=== PATIENT | male | born 1960 | race African-American/Black ===

== ENCOUNTER → 2022-03-11 13:29 | Outpatient (BNVA) | payer MEDICARE, MEDICAID, SELFPAY | PROVIDERS: PCP Internal Medicine; Visit Provider Internal Medicine | DX: M53.3 Sacrococcygeal disorders, not elsewhere classified (principal); Z98.1 Arthrodesis status | CPT/HCPCS: 99202 ==

== ENCOUNTER 2022-03-31 04:59 | Emergency (ER) | payer MEDICARE, MEDICAID, SELFPAY ==
[2022-03-31 05:02] VITALS: BP 148/86; PULSE 82; O2SAT 100
[2022-03-31 05:09] VITALS: BP 132/86; PULSE 76; RESP 16; O2SAT 100
--- NOTE | 2022-03-31 05:10 | ECG_ITS ---
Test Reason : AMS Blood Pressure : / mmHG Vent. Rate : 078 BPM Atrial Rate : 078 BPM P-R Int : 200 ms QRS Dur : 076 ms QT Int : 374 ms P-R-T Axes : 063 046 060 degrees QTc Int : 426 ms Normal sinus rhythm Normal ECG When compared with ECG of 25-MAR-2005 18:31, ST now depressed in Anterior leads T wave amplitude has decreased in Anterior leads Referred By: Nancy Coles Electronically Signed By:ROBERTH JUAREZ MD
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
[2022-03-31] MEDS: ondansetron HCL 4 MG/2 ML VIAL IVPUSH (05:39)
[2022-03-31] MEDS: 0.9 % Sodium Chloride 1,000 ML 999 ML IVCONT (05:39)
[2022-03-31 05:41] LABS: Basophils Percent Auto 0.5 % (0-2); Eosinophils Absolute Auto 0.1 X10*3/uL (0.0-0.4); Eosinophils Percent Auto 0.9 % (0-4); Hematocrit 44.4 % (42.0-52.0); Hemoglobin 15.4 g/dl (14.0-18.0); Imm Gran Abs Auto 0.03 X10*3/uL (0.00-0.03); Imm Gran Pct Auto 0.4 % (0.0-0.4); Lymphocytes Absolute Auto 2.6 X10*3/uL (1.2-4.9); Lymphocytes Percent Auto 34.1 % (20-40); MANUAL DIFF FLAG NO; Mean Corpuscular HGB Conc 34.7 g/dl (31.0-36.0); Mean Corpuscular Volume 86.5 fL (80.0-98.0); Mean Platelet Volume 9.9 fL (9.4-12.4); Monocytes Absolute Auto 0.9 X10*3/uL (0.1-1.2); Monocytes Percent Auto 12.3 % (2-11); Neutrophils Absolute Auto 3.9 x10*3/uL (2.0-8.3); Neutrophils Percent Auto 51.8 % (45-73); Platelet Count 291 X10*3/uL (160-400); Red Blood Count 5.13 X10*6/uL (4.60-5.80); Red Cell Distribution Width 13.9 % (11.0-16.0); White Blood Count 7.5 X10*3/uL (4.8-10.8)
[2022-03-31 05:47] LABS: Prothrombin Time 11.5 SEC (9.9-13.0)
[2022-03-31 05:55] LABS: Ethanol < 10 mg/dL
[2022-03-31 05:57] LABS: COVID-19 Test Negative (Negative)
[2022-03-31 06:05] LABS: Acetaminophen LAB < 1 mcg/mL (<30); Alanine Aminotransferase 22 U/L (0-40); Albumin Level 4.8 g/dL (3.5-5.0); Alkaline Phosphatase 79 U/L (39-117); Anion Gap 16 (12-20); Aspartate Amino Transferase 20 U/L (5-37); Bilirubin Direct < 0.2 mg/dL (0.0-0.5); Bilirubin Total 0.2 mg/dL (0.0-1.0); Blood Urea Nitrogen 7 mg/dL (9-16); Calcium 9.9 mg/dL (8.4-10.2); Carbon Dioxide 25 mmol/L (22-29); Chloride 103 mmol/L (96-108); Creatinine Clr Calc Pharmacy 87.6; Estimated Glomerular Filt Rate > 60; Glucose Random 133 mg/dL (60-115); Potassium 3.4 mmol/L (3.3-5.1); Salicylate < 5.0 mg/dL (15-30); Sodium 141 mmol/L (135-145); Total Protein 7.8 g/dL (6.5-8.0)
[2022-03-31 06:29] LABS: Lipase 30 U/L (8-78)
[2022-03-31 06:30] LABS: Amphetamine Screen Urine Not Detected (Not Detect); Barbiturates, Urine Not Detected (Not Detect); Benzodiazepines Screen Urine Not Detected (Not Detect); Cannabinoid Screen Urine POSITIVE (Not Detect); Cocaine Screen Urine Not Detected (Not Detect); Fentanyl, urine Not Detected (Not Detect); Opiate Screen Urine POSITIVE (Not Detect); Phencyclidine Screen Urine Not Detected (Not Detect)
[2022-03-31] MEDS: Famotidine/PF 20 MG/2 ML VIAL IVPUSH (07:07)
[2022-03-31] MEDS: Acetaminophen 325 MG TABLET 975 MG PO ×2 (08:19→16:55)
[2022-03-31] MEDS: diphenhydrAMINE HCL 25 MG TABLET 50 MG PO (09:57)
--- NOTE | 2022-03-31 11:48 | PC.NURSE ---
smart sheet completed
[2022-03-31 12:58] VITALS: BP 168/81; PULSE 70; RESP 16; TEMP 35.7; O2SAT 99
--- NOTE | 2022-03-31 13:48 | PHA.MEDREC ---
Pharmacy Consult ? Medication Reconciliation Pharmacy has completed the medication reconciliation. Pt able to name some medications, but quickly got irritated. I went through his claim history list and he confirmed doses and times, asked about when he could get his blood pressure medication. Also noted can I get my pain pills or is that out now?
[2022-03-31] MEDS: atenoloL 25 MG TABLET PO (14:48)
[2022-03-31] MEDS: Aspirin Enteric Coated 81 MG TABLET.DR PO (14:48)
[2022-03-31] MEDS: Finasteride 5 MG TABLET PO (14:49)
[2022-03-31] MEDS: amLODIPine Besylate 10 MG TABLET PO (15:00)
[2022-03-31] MEDS: oxyCODONE HCl Immed Release 5 MG TABLET 10 MG PO (15:47)
[2022-03-31] MEDS: lisinopriL 20 MG TABLET PO (17:55)
[2022-03-31 20:27] VITALS: BP 157/73; PULSE 85; RESP 20; TEMP 36.7; O2SAT 98
[2022-03-31] MEDS: QUEtiapine Fumarate 200 MG TABLET PO (20:38)
[2022-03-31] MEDS: Gabapentin 600 MG TABLET 1800 MG PO (20:38)
[2022-03-31] MEDS: Mirtazapine 30 MG TABLET 60 MG PO (20:38)
[2022-03-31] MEDS: Famotidine 20 MG TABLET 40 MG PO (20:38)
[2022-03-31] MEDS: Pravastatin Sodium 40 MG TABLET PO (20:38)
--- NOTE | 2022-03-31 21:31 | PC.NURSE ---
Patient compliant with HS medication, ambulates with elbow crutches, charge nurse made aware, visited and ended well, behavior non concerning, called [facility] to confirm disposition and per N patient is voluntary inpatient bed search, VSS, no distress reported/observed at this time, will continue to monitor.
[2022-04-01 05:45] VITALS: BP 135/81; PULSE 104; TEMP 36.1; O2SAT 98
--- NOTE | 2022-04-01 05:53 | PC.NURSE ---
Patient slept through the night, no distress observed/reported, medication compliant, patient ambulates with crutches, disposition per [facility] is voluntary inpatient bed search, behavior appropriate and non concerning at this time, VSS, will continue to monitor.
[2022-04-01 06:41] VITALS: PULSE 93
[2022-04-01] MEDS: Aspirin Enteric Coated 81 MG TABLET.DR PO (07:24)
[2022-04-01] MEDS: oxyCODONE HCl Immed Release 5 MG TABLET 10 MG PO ×2 (07:24→12:40)
--- NOTE | 2022-04-01 07:26 | PC.NURSE ---
Pt out in common area. Speaking with on phone. med with prn oxycodone for 710 back pain
[2022-04-01 07:58] VITALS: BP 161/111; PULSE 94; RESP 13; TEMP 36.2; O2SAT 98
[2022-04-01] MEDS: lisinopriL 20 MG TABLET PO (09:13)
[2022-04-01] MEDS: Finasteride 5 MG TABLET PO (09:13)
[2022-04-01] MEDS: amLODIPine Besylate 10 MG TABLET PO (09:13)
[2022-04-01] MEDS: atenoloL 25 MG TABLET PO ×2 (09:13→11:49)
[2022-04-01] MEDS: Tamsulosin HCL 0.4 MG CAPSULE PO (09:13)
[2022-04-01] MEDS: oxyCODONE HCl ER 10 MG TAB.ER.12H PO (11:51)
[2022-04-01 12:26] VITALS: BP 138/84; PULSE 63; O2SAT 99
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
== END 2022-04-01 14:42 | disposition home or self-care (01) ==
PROVIDERS: Emergency Medicine; Emergency Provider Emergency Medicine Emergency Medical Services
DX: T40.2X2A Poisoning by other opioids, intentional self-harm, initial encounter (principal); Y92.9 Unspecified place or not applicable; F32.A Depression, unspecified; I10 Essential (primary) hypertension; G89.4 Chronic pain syndrome; J45.909 Unspecified asthma, uncomplicated; Z20.822 Contact with and (suspected) exposure to COVID-19
CPT/HCPCS: 36415; 80048; 80076; 80143; 80179; 80307; 82077; 83690; 85025; 85610; 87635; 93005; 96361; 96374; 96375; 99285; J2405; Q0163

== ENCOUNTER → 2022-11-22 11:16 | Outpatient (BNVA) | payer MEDICARE, MEDICAID, SELFPAY | PROVIDERS: Visit Provider Internal Medicine | DX: M53.3 Sacrococcygeal disorders, not elsewhere classified (principal); M85.80 Other specified disorders of bone density and structure, unspecified site; G58.8 Other specified mononeuropathies; F11.20 Opioid dependence, uncomplicated | CPT/HCPCS: 99212 ==

== ENCOUNTER 2023-03-24 16:44 | Observation (INO) | payer MEDICARE, MEDICAID, SELFPAY ==
--- NOTE | ~2023-03-24 | NM_ITS ---
Myocardial perfusion study Indication: Chest discomfort evaluate for myocardial ischemia Technique: The patient was brought in for a Lexiscan perfusion study on 03/25/2023. Patient performed low-level exercise and was injected 0.4 mg of Lexiscan intravenously. Within a minute of injection, 25 mCi of sestamibi was given intravenously. Images were obtained using the SPECT gamma camera interlaced with the gating device. Images were obtained in supine position. Resting perfusion study was performed on 03/26/2023. Patient was administered 25 mCi of sestamibi intravenously at rest. Images were then obtained in supine position. Images obtained with and without CT attenuation. Total DLP 66 mGy-cm Images were processed with the software and compared side to side in short axis, horizontal long axis and vertical long axis views. Findings: Both stress as well as rest perfusion study was suboptimal due to intense subdiaphragmatic uptake interfering with myocardial uptake The stress perfusion study showed non attenuated images shows minimal thinning of the mid and basal inferior as well as basal inferoseptal wall of the LV myocardium. Remainder of the LV myocardium is normally perfused. Attenuated corrected images are suboptimal due to intense subdiaphragmatic uptake. The gated study shows normal LV systolic function with calculated LVEF of 68%. LV cavity is normal in size. The gated study shows normal systolic wall thickening and contraction of segments. Resting study shows non attenuated images show no changes in perfusion pattern compared to stress perfusion study. Gating at rest reveals normal systolic wall motion with ejection fraction at 73%. The findings are consistent with likely normal myocardial. NM/NM marti perf SPECT rest & str Impression: 1. Myocardial perfusion imaging study shows likely normal myocardial perfusion 2. Gated LVEF is 68% 3. Transient ischemic dilatation not present EKG is nondiagnostic for ischemia
--- NOTE | ~2023-03-24 | XR_ITS ---
EXAMINATION: XR CHEST, 2 VIEWS CLINICAL INFORMATION: Chest pain. COMPARISON: None. TECHNIQUE: PA and lateral views of the chest were obtained. FINDINGS: Cardiac leads overlie the chest. Lungs are clear. No consolidation, pneumothorax, or pleural effusion. Cardiac and mediastinal contours are normal. Pulmonary vasculature is unremarkable. Trachea is midline. Osseous structures are unremarkable. XR/XR chest 2V IMPRESSION: Normal chest radiographs.
--- NOTE | 2023-03-24 17:01 | ED.CHESTPAIN ---
HPI - Chest Pain General Chief Complaint: General Medical Stated Complaint: LUQ/CHEST PAIN PER EMS Time Seen by Provider: 03/24/23 16:44 Source: patient Mode of arrival: EMS Limitations: no limitations History of Present Illness HPI narrative: Patient is a 62-year-old male presents emergency department via EMS for evaluation of chest pain. Patient reports that he has been experiencing chest pain intermittently for the past month particularly upon exertion and intermittent dizziness. Patient reports that yesterday he was experiencing chest pain, lightheadedness while walking to his car and he ultimately syncopized. Reportedly his called EMS and he was transported to [facility] for evaluation at approximately 1800 yesterday. By his report he states his potassium was low, he received 4 bags replacement, but ultimately left AMA around 0700 today as he was not receiving his chronic pain medications. He denies ever having had a CT of his head. Unclear whether head strike occurred, he is not on any anticoagulants, he is denying any headache, vision changes, neck pain, confusion. Since being home this morning he reports no changes in his symptoms, but wanted to present this evening for further evaluation. Chest pain is substernal, sometimes radiates diffusely throughout the abdomen, pain is worse with exertion and deep inspiration. Described as dull and aching. Alleviates with rest. Some associated nausea at times without vomiting. Pain is currently 6/10. Denies shortness of breath, cough, cold symptoms, neck pain, edema, lower extremity pain/ redness, history of DVT/PE. Related Data Home Medications Medication Instructions Recorded Confirmed amlodipine 10 mg-benazepril 20 mg 1 cap PO DAILY 03/11/22 03/24/23 capsule atenolol 25 mg tablet 25 mg PO DAILY@0900,1300 03/11/22 03/24/23 clonazepam 0.5 mg tablet 0.5 mg PO BID PRN Anxiety 03/11/22 03/24/23 famotidine 40 mg tablet 40 mg PO BEDTIME 03/11/22 03/24/23 finasteride 5 mg tablet 5 mg PO DAILY 03/11/22 03/24/23 fluticasone propionate 50 1 spray intranasal DAILY PRN 03/11/22 03/24/23 mcg/actuation nasal allergies spray,suspension gabapentin 600 mg tablet 900 mg PO BEDTIME 03/11/22 03/24/23 mirtazapine 30 mg tablet 30 mg PO BEDTIME 03/11/22 03/24/23 oxycodone 10 mg tablet 10 mg PO Q6H PRN Pain 03/11/22 03/24/23 oxycodone myristate 9 mg capsule 9 mg PO BEDTIME 03/11/22 03/24/23 sprinkle extended release 12 hr(DON'T CRUSH) (Xtampza ER) pravastatin 40 mg tablet 40 mg PO BEDTIME 03/11/22 03/24/23 quetiapine 200 mg tablet 200 mg PO BEDTIME 03/11/22 03/24/23 tamsulosin 0.4 mg capsule 0.4 mg PO DAILY 03/11/22 03/24/23 aspirin 81 mg tablet,delayed 81 mg PO DAILY 03/31/22 03/24/23 release sennosides 8.6 mg tablet (senna) 8.6 mg PO DAILY PRN Constipation 03/31/22 03/24/23 fluticasone furoate 100 1 inh inhalation DAILY 03/24/23 03/24/23 mcg-vilanterol 25 mcg/dose inhalation powder (Breo Ellipta) lamotrigine 250 mg tablet,extended 250 mg PO BEDTIME 03/24/23 03/24/23 release 24 hr (Lamictal XR) multivitamin 1 tab PO DAILY 03/24/23 03/24/23 Allergies Allergy/AdvReac Type Severity Reaction Status Date / Time bupropion [From Wellbutrin] Allergy Severe Anaphylaxis Verified 11/22/22 11:23 Review of Systems Review of Systems: Yes all other systems are reviewed and are negative PMFSH Past Medical History Attestation statement: The following information was validated with the patient. Source: old records reviewed Medical History Anxiety Asthma Chronic pain syndrome Gastroesophageal reflux disease Hyperlipidemia Hypertension Osteoporosis Social History Social History Alcohol intake: never Patient Tobacco Use Status: Former Tobacco user Smoked in Last 30 Days: Yes Use of substances other than those prescribed or required for medical reasons: No Substance Use Type: Marijuana Advance Directives: No Advance Directives Information Provided: Yes service: No Physical Exam Vital Signs: Vital Signs: Last Vital Signs Temp 97.5 F 03/24/23 21:02 Pulse 71 03/24/23 21:02 Resp 14 03/24/23 21:02 BP 127/79 03/24/23 21:02 Pulse Ox 97 03/24/23 21:02 O2 Del Method Room Air 03/24/23 21:02 BMI result Body Mass Index 20.9 Const: Other: Appearance: Alert.?Oriented to person, place and time. No acute distress.?Normal affect. Head: Normocephalic, atraumatic Eyes: Pupils equal, round and reactive to light.? EOMI. No nystagmus. ENT: Pharynx normal.?? Neck: Normal inspection.? Neck supple.??No midline cervical spine tenderness, step-offs, deformities. CVS: Heart sounds normal. Normal heart rate and rhythm.? Pulses normal.?? Respiratory: No respiratory distress.? Lung sounds clear to auscultation bilaterally. No chest wall tenderness upon palpation Abdomen: Soft and non-tender. Normoactive bowel sounds. No pulsatile mass.?? Skin: Skin warm and dry.? Normal skin color.? Normal skin turgor.?? Extremities: No lower extremity edema.? No calf ttp? Neuro: Moves all extremities spontaneously. Sensation intact bilaterally. CN II-XII intact. No focal neuro deficits. Ambulates with steady gait, and use of bilateral forearm crutches Course Reevaluation(s) Reevaluation #1: CBC is overall unremarkable COVID-19 testing is negative. BMP within normal limits, potassium 4.0. Lipase within normal limits. Troponin 4.8. EKG without evidence of acute ischemia/ STEMI, chest x-ray unremarkable. He is afebrile, hemodynamically stable. No signs of acute abdomen. Findings do not suggest ACS, pancreatitis, or cholecystitis. Hypokalemia has resolve. Consulted with Cardiology; who recommends admission to Medicine Service. Spoke with hospitalist; Dr. Mackenzie, who plans to admit patient. I updated patient and his on current findings and plan of care they are both agreeable. Time: 19:46 Medications Administered Generic Name Dose Route Start Last Admin Trade Name Freq PRN Reason Stop Dose Admin Enoxaparin Sodium 40 mg 03/24/23 20:15 03/24/23 21:16 Enoxaparin Sodium 40 Mg/0.4 Ml Syringe SUBCUT 40 mg Q24H WILD Administration Discontinued Medications Generic Name Dose Route Start Last Admin Trade Name Maikolq PRN Reason Stop Dose Admin Nitroglycerin 0.5 inch 03/24/23 17:56 03/24/23 18:29 Nitroglycerin 2 % Oint 1 Gm Packet TRANSDERMA 03/24/23 17:57 0.5 inch ONCE ONE Administration Medical Decision Making Medical Decision Making [facility] Narrative: Patient is a 62-year-old male with past medical history of anxiety, asthma, chronic pain syndrome managed with oxycodone 20 mg b.i.d. and Xtamsa ER 9mg daily at HS, GERD, hyperlipidemia, hypertension who presents emergency department for evaluation of chest pain. No evidence of with volume overload upon examination, EKG is without signs of acute ischemia/ STEMI. Lower suspicion for acute PE no tachycardia, no hypoxia, no unilateral leg swelling, however due to age will obtain D-dimer. Low suspicion for pneumothorax, AAA, aortic dissection. ACS being considered given features /history. HEART score 3. Differential Diagnosis Differential Diagnoses: The differential diagnosis associated with the presentation includes (As noted above) Admission/Observation Consideration of admission/observation: Escalation of care including admission/observation considered Patient admitted Consult Healthcare Provider Management of the patient was discussed with: Hospitalist (Dr. Mackenzie) and Fingernail Former (Cardiology; Dr. Geller) please see course Lab Data [facility] Lab Attestation statement: I reviewed the patient's lab results. 03/24/23 17:47 03/24/23 17:47 Labs: Lab Results 03/24/23 03/24/23 03/24/23 Range/Units 17:43 17:47 17:47 WBC 10.0 (4.8-10.8) X10*3/uL RBC 5.14 (4.60-5.80) X10*6/uL Hgb 15.5 (14.0-18.0) g/dl Hct 44.7 (42.0-52.0) % MCV 87.0 (80.0-98.0) fL MCH 30.2 (27.0-33.0) pg MCHC 34.7 (31.0-36.0) g/dl RDW 14.1 (11.0-16.0) % Plt Count 295 (160-400) X10*3/uL MPV 10.5 (9.4-12.4) fL Immature Gran % (Auto) 0.9 H (0.0-0.4) % Neut % (Auto) 56.4 (45-73) % Lymph % (Auto) 30.7 (20-40) % [place] % (Auto) 11.2 H (2-11) % Eos % (Auto) 0.4 (0-4) % Baso % (Auto) 0.4 (0-2) % Lymph # (Auto) 3.1 (1.2-4.9) X10*3/uL [place] # (Auto) 1.1 (0.1-1.2) X10*3/uL Eos # (Auto) 0.0 (0.0-0.4) X10*3/uL Baso # (Auto) 0.0 (0.0-0.2) X10*3/uL Abs Immat Gran (auto) 0.09 H (0.00-0.03) X10*3/uL Absolute Neuts (auto) 5.6 (2.0-8.3) x10*3/uL Absolute Nucleated RBC 0.000 (0.0-0.012) X10*3/uL Nucleated RBC % (auto) 0.0 (0.0-0.2) /100WBC PT (10.0-13.1) SEC INR (0.9-1.1) D-Dimer High Sensitivty NG/ML Sodium 143 (135-145) mmol/L Potassium 4.0 (3.3-5.1) mmol/L Chloride 102 (96-108) mmol/L Carbon Dioxide 28 (22-29) mmol/L Anion Gap 17 (12-20) BUN 9 (9-16) mg/dL Creatinine 1.01 (0.5-1.4) mg/dL Estim Creat Clear Calc 73.9 Estimated GFR > 60 Random Glucose 117 H (60-115) mg/dL Calcium 10.6 H D (8.4-10.2) mg/dL Total Bilirubin 0.6 (0.0-1.0) mg/dL AST 21 (5-37) U/L ALT 18 (0-40) U/L Alkaline Phosphatase 75 (39-117) U/L Troponin I High Sens (<3.5-35.0) ng/L Total Protein 8.0 (6.5-8.0) g/dL Albumin 4.8 (3.5-5.0) g/dL Lipase 21 (8-78) U/L COVID-19 (ABELARDO) Negative (Negative) COVID-19 Clin Com See Note 03/24/23 03/24/23 Range/Units 17:47 17:47 WBC (4.8-10.8) X10*3/uL RBC (4.60-5.80) X10*6/uL Hgb (14.0-18.0) g/dl Hct (42.0-52.0) % MCV (80.0-98.0) fL MCH (27.0-33.0) pg MCHC (31.0-36.0) g/dl RDW (11.0-16.0) % Plt Count (160-400) X10*3/uL MPV (9.4-12.4) fL Immature Gran % (Auto) (0.0-0.4) % Neut % (Auto) (45-73) % Lymph % (Auto) (20-40) % [place] % (Auto) (2-11) % Eos % (Auto) (0-4) % Baso % (Auto) (0-2) % Lymph # (Auto) (1.2-4.9) X10*3/uL [place] # (Auto) (0.1-1.2) X10*3/uL Eos # (Auto) (0.0-0.4) X10*3/uL Baso # (Auto) (0.0-0.2) X10*3/uL Abs Immat Gran (auto) (0.00-0.03) X10*3/uL Absolute Neuts (auto) (2.0-8.3) x10*3/uL Absolute Nucleated RBC (0.0-0.012) X10*3/uL Nucleated RBC % (auto) (0.0-0.2) /100WBC PT 11.4 (10.0-13.1) SEC INR 1.0 (0.9-1.1) D-Dimer High Sensitivty < 150 NG/ML Sodium (135-145) mmol/L Potassium (3.3-5.1) mmol/L Chloride (96-108) mmol/L Carbon Dioxide (22-29) mmol/L Anion Gap (12-20) BUN (9-16) mg/dL Creatinine (0.5-1.4) mg/dL Estim Creat Clear Calc Estimated GFR Random Glucose (60-115) mg/dL Calcium (8.4-10.2) mg/dL Total Bilirubin (0.0-1.0) mg/dL AST (5-37) U/L ALT (0-40) U/L Alkaline Phosphatase (39-117) U/L Troponin I High Sens 4.8 (<3.5-35.0) ng/L Total Protein (6.5-8.0) g/dL Albumin (3.5-5.0) g/dL Lipase (8-78) U/L COVID-19 (ABELARDO) (Negative) COVID-19 Clin Com Independent Interpretation I performed an independent interpretation of an: EKG and Plain X-Ray (I have personally interpreted chest x-ray and agree with radiologist impression) Interpretation: Rate: 65 Rhythm:? Normal sinus rhythm [place]:? Normal Normal P waves.? Normal [place].?? Normal QRS complex.?? ST T wave :??No ST elevation, no ST depression no T-wave inversion qTC: 434 prior studies:? March 2022 The study has been interpreted contemporaneously by me. Radiology Impression Discussion of test interpretation with radiology: I have reviewed the radiologist's reading. Radiologist Impression: XR/XR chest 2V IMPRESSION: Normal chest radiographs.? Independent Historian Clinical information obtained from an independent historian. History obtained from or confirmed by: Spouse (Patient's is at bedside who confirms history) Discharge Plan Discharge Clinical Impression: Chest pain Patient Disposition: Admitted As Inpatient
--- NOTE | 2023-03-24 17:03 | ECG_ITS ---
Test Reason : chest pain Blood Pressure : / mmHG Vent. Rate : 065 BPM Atrial Rate : 065 BPM P-R Int : 186 ms QRS Dur : 086 ms QT Int : 418 ms P-R-T Axes : 068 060 060 degrees QTc Int : 434 ms Normal sinus rhythm Normal ECG When compared with ECG of 31-MAR-2022 05:58, No significant change was found Referred By: Nancy Amezcua Electronically Signed By:CARLOS ALBERTO
[2023-03-24 17:07] VITALS: BP 148/74; BP 154/88; PULSE 68; PULSE 70; RESP 16; TEMP 36.4; O2SAT 98; O2SAT 99; BMI 20.9
[2023-03-24 17:51] LABS: MANUAL DIFF FLAG NO
[2023-03-24 18:01] LABS: Prothrombin Time 11.4 SEC (10.0-13.1)
[2023-03-24 18:10] LABS: COVID-19 Test Negative (Negative); IDNOW Serial# 08D9AD1C
[2023-03-24 18:13] LABS: Alanine Aminotransferase 18 U/L (0-40); Albumin Level 4.8 g/dL (3.5-5.0); Alkaline Phosphatase 75 U/L (39-117); Anion Gap 17 (12-20); Aspartate Amino Transferase 21 U/L (5-37); Bilirubin Total 0.6 mg/dL (0.0-1.0); Blood Urea Nitrogen 9 mg/dL (9-16); Calcium 10.6 mg/dL (8.4-10.2); Carbon Dioxide 28 mmol/L (22-29); Chloride 102 mmol/L (96-108); Creatinine Clr Calc Pharmacy 73.9; Estimated Glomerular Filt Rate > 60; Glucose Random 117 mg/dL (60-115); Lipase 21 U/L (8-78); Sodium 143 mmol/L (135-145)
[2023-03-24 18:20] LABS: Troponin-I High Sensitivity 4.8 ng/L (<3.5-35.0)
[2023-03-24 18:27] VITALS: BP 146/83; PULSE 67; RESP 17; O2SAT 98
[2023-03-24 18:28] LABS: Basophils Percent Auto 0.4 % (0-2); Eosinophils Percent Auto 0.4 % (0-4); Hematocrit 44.7 % (42.0-52.0); Hemoglobin 15.5 g/dl (14.0-18.0); Imm Gran Abs Auto 0.09 X10*3/uL (0.00-0.03); Imm Gran Pct Auto 0.9 % (0.0-0.4); Lymphocytes Absolute Auto 3.1 X10*3/uL (1.2-4.9); Lymphocytes Percent Auto 30.7 % (20-40); Mean Corpuscular HGB Conc 34.7 g/dl (31.0-36.0); Mean Corpuscular Hemoglobin 30.2 pg (27.0-33.0); Mean Platelet Volume 10.5 fL (9.4-12.4); Monocytes Absolute Auto 1.1 X10*3/uL (0.1-1.2); Monocytes Percent Auto 11.2 % (2-11); Neutrophils Absolute Auto 5.6 x10*3/uL (2.0-8.3); Neutrophils Percent Auto 56.4 % (45-73); Platelet Count 295 X10*3/uL (160-400); Red Blood Count 5.14 X10*6/uL (4.60-5.80); Red Cell Distribution Width 14.1 % (11.0-16.0)
[2023-03-24] MEDS: Nitroglycerin 2 % Oint 1 GM Packet 0.5 INCH TRANSDERMA (18:29)
[2023-03-24 18:35] LABS: D Dimer High Sensitivity < 150 NG/ML
--- NOTE | 2023-03-24 20:17 | PM.IMHP ---
History of Present Illness Date of Service: 03/24/23 Chief Complaint: Chest pain This is a 62-year-old male with pertinent history of mood disorder, BPH, mixed hyperlipidemia, essential hypertension, asthma who presents to the emergency department for evaluation of chest discomfort. Patient states he has been having chest discomfort, midsternal which radiates down that started 2 weeks prior to presentation. It is worse with activity and relieved with rest. No similar symptoms in the past. No history of CAD. No family history of early CAD. Patient states the chest discomfort with activities also see associated with mild dyspnea. Patient was getting evaluated at [facility] but left AMA. No fever, chills, cough, palpitations, abdominal pain, changes in urinary or bowel habits. Does have symptoms of gastroesophageal reflux disease but states that it is different from his midsternal chest discomfort. In the emergency department, cardiology was consulted who requested admission Review of Systems Constitutional: Constitutional: Reports no additional constitutional complaints Cardiovascular: Cardiovascular: Reports chest pain with activity Respiratory: Respiratory: Reports no additional respiratory complaints Gastrointestinal: Gastrointestinal: Reports no additional gastrointestinal complaints Genitourinary: Genitourinary: Reports no additional male genitourinary complaints Musculoskeletal: Musculoskeletal: Reports no additional musculoskeletal complaints [facility] Medical History Anxiety Asthma Chronic pain syndrome Gastroesophageal reflux disease Hyperlipidemia Hypertension Osteoporosis Pertinent family history: Does not know of significant family history in first-degree relatives Social History Alcohol intake: never Patient Tobacco Use Status: Former Tobacco user Smoked in Last 30 Days: Yes Use of substances other than those prescribed or required for medical reasons: No Substance Use Type: Marijuana Advance Directives: No Advance Directives Information Provided: Yes Meds Allergies Allergy/AdvReac Type Severity Reaction Status Date / Time bupropion [From Wellbutrin] Allergy Severe Anaphylaxis Verified 11/22/22 11:23 Active Medications: Current Medications Pharmacy Consult (Consult Rx Perform Med Rec) 1 each MISCELLANE ONCE PRN PRN Reason: Consult order Home Medications Medication Instructions Recorded Confirmed Last Taken Type amlodipine 10 mg-benazepril 20 mg 1 cap PO DAILY 03/11/22 11/22/22 03/30/22 History capsule atenolol 25 mg tablet 25 mg PO DAILY@0900,1300 06/06/22 02/17/23 Unknown History clonazepam 0.5 mg tablet 0.5 mg PO BID PRN Anxiety 03/11/22 03/24/23 Unknown History famotidine 40 mg tablet 40 mg PO BEDTIME 03/11/22 03/24/23 03/29/22 History finasteride 5 mg tablet 5 mg PO DAILY 03/11/22 11/22/22 Unknown History fluticasone propionate 50 2 spray intranasal DAILY 03/11/22 11/22/22 Unknown History mcg/actuation nasal spray,suspension gabapentin 600 mg tablet 1,800 mg PO BEDTIME 03/11/22 11/22/22 03/29/22 History mirtazapine 30 mg tablet 60 mg PO BEDTIME 03/11/22 11/22/22 03/29/22 History oxycodone 10 mg tablet 10 mg PO QID PRN Pain 03/11/22 11/22/22 03/30/22 History oxycodone myristate 9 mg capsule 9 mg PO DAILY 03/11/22 11/22/22 03/30/22 History sprinkle extended release 12 hr(DON'T CRUSH) (Xtampza ER) pravastatin 40 mg tablet 40 mg PO BEDTIME 03/11/22 11/22/22 03/29/22 History quetiapine 200 mg tablet 200 mg PO BEDTIME 03/11/22 11/22/22 03/29/22 History tamsulosin 0.4 mg capsule 0.4 mg PO DAILY 03/11/22 11/22/22 03/30/22 History aspirin 81 mg tablet,delayed 81 mg PO DAILY 03/31/22 03/24/23 03/24/23 History release sennosides 8.6 mg tablet (senna) 8.6 mg PO DAILY PRN Constipation 03/31/22 11/22/22 Unknown History multivitamin 1 tab PO DAILY 03/24/23 03/24/23 03/24/23 History Physical Exam Vital Signs and Narrative: Vital Signs: Last Vital Signs Temp 97.5 F 03/24/23 17:07 Pulse 67 03/24/23 18:27 Resp 17 03/24/23 18:27 BP 146/83 H 03/24/23 18:27 Pulse Ox 98 03/24/23 18:27 O2 Del Method Room Air 03/24/23 18:27 BMI result Body Mass Index 20.9 Middle-aged male lying in bed in no distress Neck supple, no JVD Regular rate and rhythm, S1-S2 heard Regular breath sounds bilaterally, no wheezing or crackles appreciated Abdomen soft nontender, no guarding, no rigidity Patient is awake, alert and oriented to self, place, time and person ; no focal motor deficit Psych: Normal mood No pedal edema Results Labs 03/24/23 17:47 03/24/23 17:47 Labs: Laboratory Results - last 24 hr 03/24/23 03/24/23 03/24/23 17:43 17:47 17:47 MCV 87.0 MCH 30.2 MCHC 34.7 RDW 14.1 Plt Count 295 MPV 10.5 Immature Gran % (Auto) 0.9 H Neut % (Auto) 56.4 Lymph % (Auto) 30.7 [place] % (Auto) 11.2 H Eos % (Auto) 0.4 Baso % (Auto) 0.4 Lymph # (Auto) 3.1 [place] # (Auto) 1.1 Eos # (Auto) 0.0 Baso # (Auto) 0.0 Abs Immat Gran (auto) 0.09 H Absolute Neuts (auto) 5.6 Absolute Nucleated RBC 0.000 Nucleated RBC % (auto) 0.0 PT INR D-Dimer High Sensitivty Anion Gap 17 Estim Creat Clear Calc 73.9 Estimated GFR > 60 Random Glucose 117 H Calcium 10.6 H D Total Bilirubin 0.6 AST 21 ALT 18 Alkaline Phosphatase 75 Troponin I High Sens Total Protein 8.0 Albumin 4.8 Lipase 21 COVID-19 (ABELARDO) Negative COVID-19 Clin Com See Note 03/24/23 03/24/23 17:47 17:47 MCV MCH MCHC RDW Plt Count MPV Immature Gran % (Auto) Neut % (Auto) Lymph % (Auto) [place] % (Auto) Eos % (Auto) Baso % (Auto) Lymph # (Auto) [place] # (Auto) Eos # (Auto) Baso # (Auto) Abs Immat Gran (auto) Absolute Neuts (auto) Absolute Nucleated RBC Nucleated RBC % (auto) PT 11.4 INR 1.0 D-Dimer High Sensitivty < 150 Anion Gap Estim Creat Clear Calc Estimated GFR Random Glucose Calcium Total Bilirubin AST ALT Alkaline Phosphatase Troponin I High Sens 4.8 Total Protein Albumin Lipase COVID-19 (ABELARDO) COVID-19 Clin Com Imaging Radiologist's Impressions: Impressions Chest X-Ray 03/24/23 17:36 IMPRESSION: Normal chest radiographs. Assessment and Plan (1) Chest pain: Status: Acute Plan This is a 62-year-old male with pertinent history of mood disorder, BPH, mixed hyperlipidemia, essential hypertension, asthma who presents to the emergency department for evaluation of chest discomfort. #. Typical chest discomfort. Will admit patient with laboratory monitor for observation. Trend troponin and obtain echo. Consulting Cardiology, appreciate assistance. #. Essential hypertension. Continue home antihypertensives #. Mood disorder. Continue home mood stabilizers #. Mixed hyperlipidemia. On statin #. BPH. Considering Flomax and finasteride #. Asthma. Not in exacerbation during admission. Continue home inhaler Med rec pending DVT prophylaxis: Lovenox Full code Cardiac diet Time Spent With Patient Time: Total time managing care of this patient today ____ minutes. Quality Stroke Does the patient have a stroke diagnosis?: No VTE Prior VTE?: No VTE Risk Level:: Medical - moderate - high VTE Device Contraindication: Treatment Not Indicated VTE Drug Contraindication: N/A - Med Ordered
--- NOTE | 2023-03-24 20:56 | PHA.MEDREC ---
Med rec complete, spoke to patient and compared with pharmacy history Pharmacy Consult ? Medication Reconciliation Pharmacy has completed the medication reconciliation.
[2023-03-24 21:02] VITALS: BP 127/79; PULSE 71; RESP 14; TEMP 36.4; O2SAT 97
[2023-03-24] MEDS: Enoxaparin Sodium 40 MG/0.4 ML SYRINGE SUBCUT (21:16)
--- NOTE | 2023-03-24 21:38 | MHC.CM.PN ---
IMM 03/24. CM met with admitted patient with bed assignment pending. A&Ox4. Lives with his . Uses 2 canes. 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 [employer] x2. PCP Dr. Castelan [facility]. HCP reviewed, completed and signed. Uploaded into [employer] and [facility] [employer]. Copies given. HCP/ Patricia Beltran ([phone]). [employer] assessment completed. C/O difficulties with paying for utilities. 413 Cares given. D/C plan: Home without services. Family to transport. CM will follow for any discharge needs.
--- NOTE | 2023-03-24 21:44 | PC.NURSE ---
2nd attempt to give report to floor rn. message to call ed for report given and waiting call back.
[2023-03-24 23:10] VITALS: BP 144/68; PULSE 73; RESP 18; TEMP 36.7; O2SAT 98
[2023-03-25] VITALS: RESP 16
--- NOTE | 2023-03-25 | CA_ITS ---
Acquisition Time: 2023-03-25 09:54:29 Total Exercise Time: 00:02:00 Test Indications: CP Medications: SEE H Protocol: LEXISCAN Max HR: 116 BPM 72% of Pred: 159 BPM Max BP: 160/072 mmHG Max Work Load: 1.0 METS Pharmacological stress test with Lexiscan injection while sitting and moving his arm, without anginal symptoms, without arrhythmias, with normotensive response to injection, with nondiagnostic EKG for ischemia. In recovery he was treated with Aminophylline 75mg IVP to reverse Lexiscan. Nuclear images pending. Test reviewed with Dr. Geller. Referred By: Tiana Guadalupe Overread By: TIANA GUADALUPE
[2023-03-25] MEDS: 0.9 % Sodium Chloride Flush 3 ML SYRINGE IVFLUSH ×4 (01:10→20:22)
[2023-03-25 04:00] VITALS: BP 164/84; PULSE 78; RESP 18; TEMP 36.3; O2SAT 97
--- NOTE | 2023-03-25 04:44 | PC.NURSE ---
pt when arrived after 2300 to floor he stated his pain was 4/10 and he doesn't need any pain medications, and at 4 am he said he didn't receive any pain meds and he didnt sleep for 36 hours, notified
[2023-03-25] MEDS: QUEtiapine Fumarate 200 MG TABLET PO ×2 (05:21→20:21)
[2023-03-25] MEDS: oxyCODONE HCl Immed Release 5 MG TABLET 10 MG PO ×2 (05:21→15:43)
[2023-03-25] MEDS: clonazePAM 0.5 MG TABLET PO ×2 (05:47→16:20)
--- NOTE | 2023-03-25 06:03 | PC.NURSE ---
pt was little anxious this morning but reported no chest pain
--- NOTE | 2023-03-25 07:00 | CA_ITS ---
Transthoracic Echocardiogram Patient (Last, First, Middle): Harrison Saavedra, Gender: Male Date of : 1960 Age: 62 Procedure Date: 03/25/2023 Procedure Type: Transthoracic Echocardiogram Location: S3E Height: 180.34 cm Weight: 64.86 kg BSA: 1.83 m2 Heart Rate: 69 bpm BP: 164 / 84 mmHg Tower Control Operator: AFTAB Referring MD: Martha Mackenzie MD Symptoms: chest pain Study Quality: Adequate ECG Rhythm: Sinus Conclusions: - The left ventricular systolic function is normal. The calculated ejection fraction is 62% by biplane method. - No obvious valvular pathology seen on this study. Findings Left Ventricle Normal left ventricular cavity size. The left ventricular systolic function is normal. The calculated ejection fraction is 62% by biplane method. There is no evidence of regional wall motion abnormalities. Diastolic function is normal for age. There is mild septal asymmetric hypertrophy. Right Ventricle Normal right ventricular cavity size. There is low normal right ventricular systolic function. Atria Both atria are normal in size. Aortic Valve There is a normal trileaflet aortic valve. There is no aortic valve stenosis. There is no aortic valve regurgitation. Mitral Valve The mitral valve appears normal. There is no mitral valve regurgitation. There is no mitral valve stenosis. Pulmonic Valve The pulmonic valve is likely normal. Tricuspid Valve There is trace tricuspid valve regurgitation. There is no evidence of pulmonary hypertension. Great Vessels The asc aorta is normal in size. Venous The inferior vena cava is normal in size and collapses greater than 50% with inspiration. Pericardium/Pleural There is no evidence of pericardial effusion. Prior Study Comparison No significant change compared to prior study dated: 12/11/2004. Recommendations, Care & Conclusions No obvious valvular pathology seen on this study. Measurements 2D Linear Measurements IVSd: 1.04 0.6-0.9/0.6-1.0 cm LVIDd: 4.08 3.9-5.3/4.2-5.9 cm LVIDd Index: 2.23 2.4-3.2/2.2-3.1 cm/m2 LVIDs: 2.10 2.0-3.6 cm LVPWd: 0.94 0.7-1.1 cm LA Diam: 3.00 2.7-3.8/3.0-4.0 cm LAIDs Index: 1.64 1.5-2.3 cm/m2 LV Mass: 160.24 67-162/88-224 g LV Mass Index: 87.56 43-95/49-115 g/m2 LVOT Diam: 2.10 3.0+(-)1.3 cm 2D Systolic Function EF 4C: 69.00 >55% EF 2C: 50.40 >55% EF BiP: 62.40 >55% Mitral Valve MV Pk E: 0.49 MV PK A: 0.65 MV Decel Time: 251.00 E/A: 0.80 E'Lateral: 9.03 E'Medial: 6.31 E/E' Med: 7.70 E/E' Lat: 5.40 PHT: 74.00 MVA PHT: 2.97 Decel [place]: 1.94 Aortic Valve AoV Pk Jasiel: 1.34 AoV Mn Jasiel: 0.89 AoV VTI: 0.25 AoV Pk Grad: 7.00 Aov Mn Grad: 4.00 LORI Cont.VTI: 2.72 LVOT LVOT Pk Jasiel: 1.05 LVOT Mn Jasiel: 0.71 LVOT VTI: 0.19 LVOT Pk Grad: 4.00 LVOT Mn Grad: 2.00 LVOT Diam: 2.10 LVOT Area: 3.46 Diastolic Function MV Pk E: 0.49 MV Pk A: 0.65 E/A: 0.80 E'Medial: 6.31 E/E' Med: 7.70 E' Laterial: 9.03 E/E' Lat: 5.40 Right Ventricle TAPSE (mm): 17.50 TVS' Jasiel: 10.60 Tricuspid Valve RA Press: 3.00 Great Vessels Aorta Sinus of Valsalva: 3.50 2.0-3.5 cm Ao Asc: 3.20 2.1-3.4 cm Pulmonary Valve PV Pk Jasiel: 0.86 Peak PV Grad: 3.00 Updated in Other Vendor System with Status of Final Homero Geller MD electronically signed on 03/25/2023 11:35:24 AM with status of Final
[2023-03-25 07:36] VITALS: BP 125/72; PULSE 73; RESP 17; TEMP 36.2; O2SAT 98
--- NOTE | 2023-03-25 09:35 | PM.CNCAR ---
History of Present Illness History of Present Illness Date of Service: 03/25/23 Chief complaint: Chest Pain Narrative: This is a cardiology consultation regarding chest pain. Patient does not have any history of coronary artery disease or myocardial infarction or cardiomyopathy or any other cardiac issues in the past. Patient states that he does have dementia but he is only 62 years of age. Hence he states he cannot remember too much. Patient states that for the last several weeks he is getting a discomfort in the substernal area. This apparently happens whenever he is doing activities like walking and then gets better with rest. He also has chronic pain issues but he feels that this is different. He also feels short of breath with activity. Hence admitted for further care. Review of Systems Review of Systems: Yes all other systems are reviewed and are negative Constitutional: Constitutional: Reports as per HPI and Reports no additional constitutional complaints Eyes: Eyes: Reports as per HPI and Denies no additional eye complaints ENT: Denies system reviewed and no additional complaints, except as documented and Reports as per HPI Cardiovascular: Cardiovascular: Reports as per HPI, Reports no additional cardiovascular complaints, Denies acrocyanosis, Denies cool extremities, Reports chest pain, Denies leg edema, Denies lightheadedness, Denies palpitations and Reports dyspnea Respiratory: Respiratory: Reports as per HPI, Denies no additional respiratory complaints and Reports dyspnea Gastrointestinal: Gastrointestinal: Reports as per HPI and Denies no additional gastrointestinal complaints Genitourinary: Genitourinary: Reports no additional male genitourinary complaints and Reports as per HPI Musculoskeletal: Musculoskeletal: Reports no additional musculoskeletal complaints and Reports as per HPI Integumentary/Breasts: Skin/Breast: Reports system reviewed and no additional complaints, except as docu Neurologic: Reports system reviewed and no additional complaints, except as documented and Reports as per HPI Psychiatric: Psychiatric: Reports no additional psychiatric complaints and Reports as per HPI Endocrine: Endocrine: Reports no additional endocrine complaints, Reports as per HPI and Denies palpitations Hematologic/Lymphatic: Hematologic/Lymphatic: Reports no additional hematologic/lymphatic complaints and Reports as per HPI Allergic/Immunologic: Allergic/Immunologic: Reports no additional allergic/immunologic complaints and Reports as per HPI [facility] Past Medical History Medical History Anxiety Asthma Chronic pain syndrome Gastroesophageal reflux disease Hyperlipidemia Hypertension Osteoporosis Family History Family History (Updated 03/25/23 @ 09:38 by Homero Geller MD) Maternal Grandfather Colon cancer Social History Social History Alcohol intake: never Patient Tobacco Use Status: Former Tobacco user Second Hand Smoke Exposure: No Substance Use Type: Marijuana service: No Meds Allergies Allergy/AdvReac Type Severity Reaction Status Date / Time bupropion [From Wellbutrin] Allergy Severe Anaphylaxis Verified 11/22/22 11:23 Active Medications: Current Medications Acetaminophen (Acetaminophen 325 Mg Tablet) 650 mg PO Q6H PRN PRN Reason: Pain, Mild (Pain Scale 1-3) Enoxaparin Sodium (Enoxaparin Sodium 40 Mg/0.4 Ml Syringe) 40 mg SUBCUT Q24H [facility] Last Admin: 03/24/23 21:16 Dose: 40 mg Pharmacy Consult (Consult Rx Perform Med Rec) 1 each MISCELLANE ONCE PRN PRN Reason: Consult order Sodium Chloride (0.9 % Sodium Chloride Flush 3 Ml Syringe) 3 ml IVFLUSH QSHIFT [facility] Last Admin: 03/25/23 01:10 Dose: 3 ml Home Medications Medication Instructions Recorded Confirmed Last Taken Type amlodipine 10 mg-benazepril 20 mg 1 cap PO DAILY 03/11/22 03/24/23 03/24/23 History capsule atenolol 25 mg tablet 25 mg PO DAILY@0900,1300 03/11/22 03/24/23 03/24/23 History clonazepam 0.5 mg tablet 0.5 mg PO BID PRN Anxiety 03/11/22 03/24/23 Unknown History famotidine 40 mg tablet 40 mg PO BEDTIME 03/11/22 03/24/23 03/29/22 History finasteride 5 mg tablet 5 mg PO DAILY 03/11/22 03/24/23 03/24/23 History fluticasone propionate 50 1 spray intranasal DAILY PRN 03/11/22 03/24/23 Unknown History mcg/actuation nasal allergies spray,suspension gabapentin 600 mg tablet 900 mg PO BEDTIME 03/11/22 03/24/23 03/29/22 History mirtazapine 30 mg tablet 30 mg PO BEDTIME 03/11/22 03/24/23 03/29/22 History oxycodone 10 mg tablet 10 mg PO Q6H PRN Pain 03/11/22 03/24/23 03/30/22 History oxycodone myristate 9 mg capsule 9 mg PO BEDTIME 03/11/22 03/24/23 03/30/22 History sprinkle extended release 12 hr(DON'T CRUSH) (Xtampza ER) pravastatin 40 mg tablet 40 mg PO BEDTIME 03/11/22 03/24/23 03/29/22 History quetiapine 200 mg tablet 200 mg PO BEDTIME 03/11/22 03/24/23 03/29/22 History tamsulosin 0.4 mg capsule 0.4 mg PO DAILY 03/11/22 03/24/23 03/30/22 History aspirin 81 mg tablet,delayed 81 mg PO DAILY 03/31/22 03/24/23 03/24/23 History release sennosides 8.6 mg tablet (senna) 8.6 mg PO DAILY PRN Constipation 03/31/22 03/24/23 Unknown History fluticasone furoate 100 1 inh inhalation DAILY 03/24/23 03/24/23 03/24/23 History mcg-vilanterol 25 mcg/dose inhalation powder (Breo Ellipta) lamotrigine 250 mg tablet,extended 250 mg PO BEDTIME 03/24/23 03/24/23 Unknown History release 24 hr (Lamictal XR) multivitamin 1 tab PO DAILY 03/24/23 03/24/23 03/24/23 History Physical Exam Vital Signs: Vital Signs: Last Vital Signs Temp 97.1 F 03/25/23 07:36 Pulse 73 03/25/23 07:36 Resp 17 03/25/23 07:36 BP 125/72 03/25/23 07:36 Pulse Ox 98 03/25/23 07:36 O2 Del Method Room Air 03/25/23 07:36 BMI result Body Mass Index 20.0 Const: General: comfortable and no acute distress Orientation/consciousness: patient oriented x3 HEENT: Other: Unremarkable Head: Yes normal to inspection Neck: Neck: Yes normal visual inspection Chest: Chest palpation & inspection: normal inspection of the chest Resp: Auscultation: clear to auscultation bilaterally Cardio: Palpation: normal PMI Heart sounds: S1 normal heart sound present, S2 normal heart sound present, no gallops, no murmurs and no rubs GI: Palpation (GI): Soft to palpation Back/Spine/Pelvis: Other: unremarkable Skin: General skin exam: no rashes or lesions noted Neuro: General: patient oriented x3 Extrem: General: Yes normal to inspection Psych: Mental Status: mental status grossly normal Objective Labs and Meds 03/24/23 17:47 03/24/23 17:47 Lab results: Laboratory Results - last 24 hr 03/24/23 03/24/23 03/24/23 17:43 17:47 17:47 WBC 10.0 RBC 5.14 Hgb 15.5 Hct 44.7 MCV 87.0 MCH 30.2 MCHC 34.7 RDW 14.1 Plt Count 295 MPV 10.5 Immature Gran % (Auto) 0.9 H Neut % (Auto) 56.4 Lymph % (Auto) 30.7 [place] % (Auto) 11.2 H Eos % (Auto) 0.4 Baso % (Auto) 0.4 Lymph # (Auto) 3.1 [place] # (Auto) 1.1 Eos # (Auto) 0.0 Baso # (Auto) 0.0 Abs Immat Gran (auto) 0.09 H Absolute Neuts (auto) 5.6 Absolute Nucleated RBC 0.000 Nucleated RBC % (auto) 0.0 PT INR D-Dimer High Sensitivty Sodium 143 Potassium 4.0 Chloride 102 Carbon Dioxide 28 Anion Gap 17 BUN 9 Creatinine 1.01 Estim Creat Clear Calc 73.9 Estimated GFR > 60 Random Glucose 117 H Calcium 10.6 H D Total Bilirubin 0.6 AST 21 ALT 18 Alkaline Phosphatase 75 Troponin I High Sens Total Protein 8.0 Albumin 4.8 Lipase 21 COVID-19 ([facility]ELARDO) Negative COVID-19 Clin Com See Note 03/24/23 03/24/23 17:47 17:47 WBC RBC Hgb Hct MCV MCH MCHC RDW Plt Count MPV Immature Gran % (Auto) Neut % (Auto) Lymph % (Auto) [place] % (Auto) Eos % (Auto) Baso % (Auto) Lymph # (Auto) [place] # (Auto) Eos # (Auto) Baso # (Auto) Abs Immat Gran (auto) Absolute Neuts (auto) Absolute Nucleated RBC Nucleated RBC % (auto) PT 11.4 INR 1.0 D-Dimer High Sensitivty < 150 Sodium Potassium Chloride Carbon Dioxide Anion Gap BUN Creatinine Estim Creat Clear Calc Estimated GFR Random Glucose Calcium Total Bilirubin AST ALT Alkaline Phosphatase Troponin I High Sens 4.8 Total Protein Albumin Lipase COVID-19 (ABELARDO) COVID-19 Clin Com ECG Interpretation: EKG shows sinus rhythm at 65/Min; no significant ST-T changes and otherwise unremarkable. Normal AR and corrected QT. Imaging Radiologist's impression: Impressions Chest X-Ray 03/24/23 17:36 IMPRESSION: Normal chest radiographs. Assessment and Plan (1) Chest pain: Status: Acute Plan He does describe exertional chest pain that could be angina. However also has chronic pain issues. Baseline EKG is unremarkable. High sensitivity troponin well within normal limits. Bedside echocardiogram without any obvious wall motion abnormalities. Still being completed. We will proceed with stress test for further evaluation. Time Spent With Patient Time: Total time managing care of this patient today ____ minutes. Procedures Date of Service Date of Service: 03/25/23
[2023-03-25 11:04] LABS: MANUAL DIFF FLAG NO
[2023-03-25 11:10] LABS: Basophils Percent Auto 0.3 % (0-2); Eosinophils Percent Auto 0.2 % (0-4); Hematocrit 47.5 % (42.0-52.0); Hemoglobin 16.1 g/dl (14.0-18.0); Imm Gran Abs Auto 0.04 X10*3/uL (0.00-0.03); Imm Gran Pct Auto 0.4 % (0.0-0.4); Lymphocytes Absolute Auto 3.7 X10*3/uL (1.2-4.9); Lymphocytes Percent Auto 38.5 % (20-40); Mean Corpuscular HGB Conc 33.9 g/dl (31.0-36.0); Mean Corpuscular Volume 88.6 fL (80.0-98.0); Mean Platelet Volume 10.2 fL (9.4-12.4); Monocytes Absolute Auto 0.8 X10*3/uL (0.1-1.2); Monocytes Percent Auto 8.7 % (2-11); Neutrophils Percent Auto 51.9 % (45-73); Platelet Count 300 X10*3/uL (160-400); Red Blood Count 5.36 X10*6/uL (4.60-5.80); White Blood Count 9.6 X10*3/uL (4.8-10.8)
[2023-03-25 11:25] LABS: Anion Gap 17 (12-20); Blood Urea Nitrogen 8 mg/dL (9-16); Calcium 10.4 mg/dL (8.4-10.2); Carbon Dioxide 26 mmol/L (22-29); Chloride 99 mmol/L (96-108); Creatinine Clr Calc Pharmacy 73.5; Estimated Glomerular Filt Rate > 60; Glucose Random 181 mg/dL (60-115); Potassium 3.4 mmol/L (3.3-5.1); Sodium 139 mmol/L (135-145)
[2023-03-25 11:32] LABS: Troponin-I High Sensitivity 2.7 ng/L (<3.5-35.0)
[2023-03-25 11:41] VITALS: BP 168/99; PULSE 97; RESP 17; TEMP 36.1; O2SAT 98
[2023-03-25] MEDS: Multivitamin TABLET 1 TAB PO (15:07)
[2023-03-25] MEDS: Finasteride 5 MG TABLET PO (15:07)
[2023-03-25] MEDS: Tamsulosin HCL 0.4 MG CAPSULE PO (15:08)
[2023-03-25] MEDS: Aspirin Enteric Coated 81 MG TABLET.DR PO (15:08)
--- NOTE | 2023-03-25 15:19 | P.PNIM_ITS ---
Subjective Subjective Date of Service: 03/25/23 Interval History: No further chest pain since admission; enzymes negative Review of Systems Denies chest pain Denies shortness of breath Denies nausea vomiting diarrhea Denies fever chills Physical Exam Vital Signs: Vital Signs: Last Vital Signs Temp 97.0 F 03/25/23 11:41 Pulse 97 03/25/23 11:41 Resp 17 03/25/23 11:41 BP 168/99 H 03/25/23 11:41 Pulse Ox 98 03/25/23 11:41 O2 Del Method Room Air 03/25/23 11:41 BMI result Body Mass Index 20.0 Const: Other: Awake alert no acute distress Resp: Other: Clear to auscultation bilaterally no rales rhonchi or wheezes Cardio: Other: No S4; positive S1-S2; no S3 is murmur rub gallop GI: Other: Soft nontender nondistended normoactive bowel sounds Extrem: Other: No edema bilaterally Objective Data Active Medications Acetaminophen (Acetaminophen 325 Mg Tablet) 650 mg PO Q6H PRN PRN Reason: Pain, Mild (Pain Scale 1-3) Amlodipine Besylate (Amlodipine Besylate 10 Mg Tablet) 10 mg PO DAILY [facility] Aspirin (Aspirin Enteric Coated 81 Mg Tablet.) 81 mg PO DAILY [facility] Last Admin: 03/25/23 15:08 Dose: 81 mg Documented By: RADHA Atenolol (Atenolol 25 Mg Tablet) 25 mg PO DAILY@0900,1300 [facility]; Protocol Clonazepam (Clonazepam 0.5 Mg Tablet) 0.5 mg PO BID PRN PRN Reason: Anxiety Enoxaparin Sodium (Enoxaparin Sodium 40 Mg/0.4 Ml Syringe) 40 mg SUBCUT Q24H [facility] Last Admin: 03/24/23 21:16 Dose: 40 mg Documented By: KWAN Famotidine (Famotidine 20 Mg Tablet) 40 mg PO BEDTIME [facility] Finasteride (Finasteride 5 Mg Tablet) 5 mg PO DAILY [facility] Last Admin: 03/25/23 15:07 Dose: 5 mg Documented By: RADHA Fluticasone Propionate (Fluticasone Propionate Nasal 16 Gm [place]) 1 spray NOSTRIL-B DAILY PRN PRN Reason: allergies Fluticasone/Vilanterol (Fluticasone/Vilanterol 100/25 Blst.W.Dev) 1 puff INHALE RDAILY [facility] Gabapentin (Gabapentin 600 Mg Tablet) 900 mg PO BEDTIME [facility] Lamotrigine (Lamotrigine 25 Mg Tablet) 125 mg PO BID [facility] Lisinopril (Lisinopril 20 Mg Tablet) 20 mg PO DAILY [facility] Mirtazapine (Mirtazapine 30 Mg Tablet) 30 mg PO BEDTIME [facility] Multivitamins/Vitamin C (Multivitamin Tablet) 1 tab PO DAILY [facility] Last Admin: 03/25/23 15:07 Dose: 1 tab Documented By: RADHA Non-Formulary Medication (Oxycodone Myristate [Xtampza Er]) 9 mg PO BEDTIME [facility] Pharmacy Consult (Consult Rx Perform Med Rec) 1 each MISCELLANE ONCE PRN PRN Reason: Consult order Pravastatin Sodium (Pravastatin Sodium 40 Mg Tablet) 40 mg PO BEDTIME [facility] Quetiapine Fumarate (Quetiapine Fumarate 200 Mg Tablet) 200 mg PO BEDTIME [facility] Senna (Sennosides 8.6 Mg Tablet) 8.6 mg PO DAILY PRN PRN Reason: Constipation Sodium Chloride (0.9 % Sodium Chloride Flush 3 Ml Syringe) 3 ml IVFLUSH QSHIFT [facility] Last Admin: 03/25/23 10:50 Dose: 3 ml Documented By: RADHA Tamsulosin HCl (Tamsulosin Hcl 0.4 Mg Capsule) 0.4 mg PO DAILY [facility] Last Admin: 03/25/23 15:08 Dose: 0.4 mg Documented By: RADHA Labs 03/25/23 10:55 03/25/23 10:55 Labs: Laboratory Results - last 24 hr 03/24/23 03/24/23 03/24/23 17:43 17:47 17:47 MCV 87.0 MCH 30.2 MCHC 34.7 RDW 14.1 Plt Count 295 MPV 10.5 Immature Gran % (Auto) 0.9 H Neut % (Auto) 56.4 Lymph % (Auto) 30.7 [place] % (Auto) 11.2 H Eos % (Auto) 0.4 Baso % (Auto) 0.4 Lymph # (Auto) 3.1 [place] # (Auto) 1.1 Eos # (Auto) 0.0 Baso # (Auto) 0.0 Abs Immat Gran (auto) 0.09 H Absolute Neuts (auto) 5.6 Absolute Nucleated RBC 0.000 Nucleated RBC % (auto) 0.0 PT INR D-Dimer High Sensitivty Anion Gap 17 Estim Creat Clear Calc 73.9 Estimated GFR > 60 Random Glucose 117 H Calcium 10.6 H D Total Bilirubin 0.6 AST 21 ALT 18 Alkaline Phosphatase 75 Troponin I High Sens Total Protein 8.0 Albumin 4.8 Lipase 21 COVID-19 ([facility]) Negative COVID-19 Clin Com See Note 03/24/23 03/24/23 03/25/23 17:47 17:47 10:55 MCV 88.6 MCH 30.0 MCHC 33.9 RDW 14.0 Plt Count 300 MPV 10.2 Immature Gran % (Auto) 0.4 Neut % (Auto) 51.9 Lymph % (Auto) 38.5 [place] % (Auto) 8.7 Eos % (Auto) 0.2 Baso % (Auto) 0.3 Lymph # (Auto) 3.7 [place] # (Auto) 0.8 Eos # (Auto) 0.0 Baso # (Auto) 0.0 Abs Immat Gran (auto) 0.04 H Absolute Neuts (auto) 5.0 Absolute Nucleated RBC 0.000 Nucleated RBC % (auto) 0.0 PT 11.4 INR 1.0 D-Dimer High Sensitivty < 150 Anion Gap Estim Creat Clear Calc Estimated GFR Random Glucose Calcium Total Bilirubin AST ALT Alkaline Phosphatase Troponin I High Sens 4.8 Total Protein Albumin Lipase COVID-19 ([facility]) COVID-19 Clin Com 03/25/23 03/25/23 10:55 10:55 MCV MCH MCHC RDW Plt Count MPV Immature Gran % (Auto) Neut % (Auto) Lymph % (Auto) [place] % (Auto) Eos % (Auto) Baso % (Auto) Lymph # (Auto) [place] # (Auto) Eos # (Auto) Baso # (Auto) Abs Immat Gran (auto) Absolute Neuts (auto) Absolute Nucleated RBC Nucleated RBC % (auto) PT INR D-Dimer High Sensitivty Anion Gap 17 Estim Creat Clear Calc 73.5 Estimated GFR > 60 Random Glucose 181 H Calcium 10.4 H Total Bilirubin AST ALT Alkaline Phosphatase Troponin I High Sens 2.7 Total Protein Albumin Lipase COVID-19 ([facility]) COVID-19 Clin Com Assessment and Plan (1) Chest pain: Status: Acute (2) Hypertension: Status: Acute (3) Hyperlipidemia: Status: Acute Plan This is a 62-year-old male with pertinent history of mood disorder, BPH, mixed hyperlipidemia, essential hypertension, asthma who presents to the emergency department for evaluation of chest discomfort. 1.Chest pain -echo without wall motion abnormalities -Lexiscan pending -resting scan in a.m. 2.Essential hypertension -acceptable control on current therapies -adjust as indicated 3.Mixed hyperlipidemia -continue statin 4.Cluneal Neuropathy -continue opiates at outpatient dosing Lovenox Full code Requires ongoing hospitalization to complete cardiac workup for chest pain Time Spent With Patient Time: Total time managing care of this patient today ____ minutes. Quality Stroke Does the patient have a stroke diagnosis?: No VTE Prior VTE?: No VTE Risk Level:: Medical - moderate - high VTE Device Contraindication: Treatment Not Indicated VTE Drug Contraindication: N/A - Med Ordered
[2023-03-25] MEDS: lisinopriL 20 MG TABLET PO (15:44)
[2023-03-25] MEDS: amLODIPine Besylate 10 MG TABLET PO (15:44)
[2023-03-25 15:51] VITALS: BP 153/81; PULSE 85; RESP 18; TEMP 36.2; O2SAT 99
[2023-03-25 19:45] VITALS: BP 133/69; PULSE 91; RESP 18; TEMP 36.2; O2SAT 98
[2023-03-25] MEDS: oxyCODONE HCl ER 10 MG TAB.ER.12H PO (20:20)
[2023-03-25] MEDS: Mirtazapine 30 MG TABLET PO (20:21)
[2023-03-25] MEDS: Pravastatin Sodium 40 MG TABLET PO (20:21)
[2023-03-25] MEDS: lamoTRIgine 25 MG TABLET 125 MG PO (20:21)
[2023-03-25] MEDS: Famotidine 20 MG TABLET 40 MG PO (20:21)
[2023-03-25] MEDS: Enoxaparin Sodium 40 MG/0.4 ML SYRINGE SUBCUT (20:22)
[2023-03-25] MEDS: Gabapentin 600 MG TABLET 900 MG PO (20:22)
[2023-03-26 03:37] VITALS: BP 111/56; PULSE 88; RESP 18; TEMP 36.3; O2SAT 97
[2023-03-26] MEDS: Acetaminophen 325 MG TABLET 650 MG PO (03:39)
[2023-03-26] MEDS: oxyCODONE HCl Immed Release 5 MG TABLET 10 MG PO ×2 (03:39→10:45)
[2023-03-26 07:41] VITALS: BP 102/62; PULSE 76; RESP 18; TEMP 36.4; O2SAT 98
[2023-03-26] MEDS: Fluticasone/Vilanterol 100/25 BLST.W.DEV 1 PUFF INHALE (07:59)
[2023-03-26 08:04] VITALS: PULSE 68; RESP 18; O2SAT 96
[2023-03-26] MEDS: Finasteride 5 MG TABLET PO (08:14)
[2023-03-26] MEDS: lamoTRIgine 25 MG TABLET 125 MG PO (08:14)
[2023-03-26] MEDS: Multivitamin TABLET 1 TAB PO (08:15)
[2023-03-26] MEDS: Aspirin Enteric Coated 81 MG TABLET.DR PO (08:15)
[2023-03-26] MEDS: Tamsulosin HCL 0.4 MG CAPSULE PO (08:15)
[2023-03-26] MEDS: 0.9 % Sodium Chloride Flush 3 ML SYRINGE IVFLUSH (08:15)
[2023-03-26] MEDS: lisinopriL 20 MG TABLET PO (08:15)
[2023-03-26] MEDS: amLODIPine Besylate 10 MG TABLET PO (08:15)
[2023-03-26] MEDS: atenoloL 25 MG TABLET PO (08:19)
--- NOTE | 2023-03-26 10:06 | P.PNCA_ITS ---
Subjective Subjective Date of Service: 03/26/23 Interval history: He states that he is feeling okay. No new complaints. Finishing up the stress test today. Review of Systems Review of Systems Yes all other systems are reviewed and are negative Constitutional: Reports as per HPI and Reports no additional constitutional complaints Eyes: Reports as per HPI and Denies no additional eye complaints Denies system reviewed and no additional complaints, except as documented and Re ports as per HPI Cardiovascular: Reports as per HPI, Reports no additional cardiovascular complaints, Denies acrocyanosis, Denies cool extremities, Denies chest pain, Denies leg edema, Denies lightheadedness, Denies palpitations and Denies dyspnea Respiratory: Reports as per HPI, Denies no additional respiratory complaints and Denies dyspnea Gastrointestinal: Reports as per HPI and Denies no additional gastrointestinal complaints Genitourinary: Reports no additional male genitourinary complaints and Reports as per HPI Musculoskeletal: Reports no additional musculoskeletal complaints and Reports as per HPI Skin/Breast: Reports system reviewed and no additional complaints, except as docu Reports system reviewed and no additional complaints, except as documented and Reports as per HPI Psychiatric: Reports no additional psychiatric complaints and Reports as per HPI Endocrine: Reports no additional endocrine complaints, Reports as per HPI and Denies palpitations Hematologic/Lymphatic: Reports no additional hematologic/lymphatic complaints and Reports as per HPI Allergic/Immunologic: Reports no additional allergic/immunologic complaints and Reports as per HPI Physical Exam Vital Signs: Last Vital Signs Temp 97.6 F 03/26/23 07:41 Pulse 68 03/26/23 08:04 Resp 18 03/26/23 08:04 BP 102/62 03/26/23 07:41 Pulse Ox 98 03/26/23 07:41 O2 Del Method Room Air 03/26/23 07:41 BMI result Body Mass Index 20.0 Const General: comfortable and no acute distress Orientation/consciousness: patient oriented x3 HEENT Other: Unremarkable Head: Yes normal to inspection Neck Neck: Yes normal visual inspection Chest Chest palpation & inspection: normal inspection of the chest Resp Auscultation: clear to auscultation bilaterally Cardio Palpation: normal PMI Heart sounds: S1 normal heart sound present, S2 normal heart sound present, no gallops, no murmurs and no rubs GI Palpation (GI): Soft to palpation Back/Spine/Pelvis Other: unremarkable Skin General skin exam: no rashes or lesions noted Neuro General: patient oriented x3 Extrem General: Yes normal to inspection Psych Mental Status: mental status grossly normal Objective Labs and Meds 03/25/23 10:55 03/25/23 10:55 Lab results: Laboratory Results - last 24 hr 03/25/23 03/25/23 03/25/23 10:55 10:55 10:55 WBC 9.6 RBC 5.36 Hgb 16.1 Hct 47.5 MCV 88.6 MCH 30.0 MCHC 33.9 RDW 14.0 Plt Count 300 MPV 10.2 Immature Gran % (Auto) 0.4 Neut % (Auto) 51.9 Lymph % (Auto) 38.5 [place] % (Auto) 8.7 Eos % (Auto) 0.2 Baso % (Auto) 0.3 Lymph # (Auto) 3.7 [place] # (Auto) 0.8 Eos # (Auto) 0.0 Baso # (Auto) 0.0 Abs Immat Gran (auto) 0.04 H Absolute Neuts (auto) 5.0 Absolute Nucleated RBC 0.000 Nucleated RBC % (auto) 0.0 Sodium 139 Potassium 3.4 Chloride 99 Carbon Dioxide 26 Anion Gap 17 BUN 8 L Creatinine 0.97 Estim Creat Clear Calc 73.5 Estimated GFR > 60 Random Glucose 181 H Calcium 10.4 H Troponin I High Sens 2.7 Progress Note: A&P Assessment and plan (1) Chest pain: Status: Acute Plan Pain is somewhat difficult to characterize. He does have chronic pain issues and dementia. Although he describes exertional chest pain could also be something nonspecific. Also does not appear that he has to active at all. Echocardiogram not showing any wall motion abnormalities. Baseline EKG is unremarkable. High sensitivity troponins are also normal. Stress perfusion imaging not showing any clear-cut ischemia. In this instance, no absolute need for invasive studies. Can be discharged home. Will arrange follow-up in the clinic. If continued symptoms, then consider coronary CTA. Time Spent With Patient Time: Total time managing care of this patient today ____ minutes. Progress Note: Quality Stroke Does the patient have a stroke diagnosis?: No Procedures Date of Service Date of Service: 03/26/23
--- NOTE | 2023-03-26 10:32 | MHC.CM.PN ---
pt dcd home no servceis
--- NOTE | 2023-03-26 12:15 | PM.DS ---
DS: Providers Provider Date of Service: 03/26/23 Date of admission: 03/24/23 20:15 Date of discharge: 03/26/23 Primary care physician: Melissa Castelan MD Consults: 03/24/23 20:46 Consult to Cardiology Routine Consulting Provider: [facility] Cardiovascular Services Reason for consultation: chest pain Has provider been notified: Yes DS: Diagnosis Discharge Diagnosis (1) Chest pain: Status: Acute DS: Summary Hospital Course Hospital Course: 62-year-old male with pertinent history of mood disorder, BPH, mixed hyperlipidemia, essential hypertension, asthma who presents to the emergency department for evaluation of chest discomfort.? Patient states he has been having chest discomfort, midsternal which radiates down that started 2 weeks prior to presentation.? It is worse with activity and relieved with rest.? No similar symptoms in the past.? No history of CAD.? No family history of early CAD.? Patient states the chest discomfort with activities also see associated with mild dyspnea.? Patient was getting evaluated at [facility] but left AMA.? No fever, chills, cough, palpitations, abdominal pain, changes in urinary or bowel habits.? Does have symptoms of gastroesophageal reflux disease but states that it is different from his midsternal chest discomfort. Hospital Course Admitted to telemetry where monitor failed to demonstrate any acute pathological rhythms. He underwent 2D echo which was unremarkable; he subsequently underwent a Lexiscan and nuclear med images were without defect. As per Cardiology may have outpatient follow-up. At this point time he is medically acceptable for discharge and follow-up with PCP Time Spent with Patient Time attestation: Total time managing care of this patient today ____ minutes. Discharge coordination time: Greater than 30 minutes Quality: Safe Use of Opioids Does Pt have an Active Cancer Diagnosis on the Problem List?: No Quality: Stroke Does the patient have a stroke diagnosis?: No Physical Exam Vital Signs: Vital Signs: Last Vital Signs Temp 97.6 F 03/26/23 07:41 Pulse 68 03/26/23 08:04 Resp 18 03/26/23 08:04 BP 102/62 03/26/23 07:41 Pulse Ox 98 03/26/23 07:41 O2 Del Method Room Air 03/26/23 07:41 BMI result Body Mass Index 20.0 Const: Other: Awake alert no acute distress Resp: Other: Clear to auscultation bilaterally no rales rhonchi or wheezes Cardio: Other: No S4; positive S1-S2; no S3 is murmur rub gallop GI: Other: Soft nontender nondistended normoactive bowel sounds Extrem: Other: No edema bilaterally Discharge Plan Discharge Anticipated Discharge Date/Time: 03/26/23 12:14 Patient Disposition: Home, Self-Care Discharge Diagnosis: Atypical chest pain Referrals: Melissa Castelan MD [Primary Care Provider] - 1 Week Discharge Medications: Continued sennosides [senna] 8.6 mg Tablet 8.6 mg PO DAILY PRN (Reason: Constipation) aspirin 81 mg Tablet,Delayed Release (Dr/Ec) 81 mg PO DAILY multivitamin Tablet 1 tab PO DAILY lamotrigine [Lamictal XR] 250 mg Tablet Extended Release 24hr 250 mg PO BEDTIME fluticasone furoate-vilanterol [Breo Ellipta] 100-25 mcg/dose Blister With Device 1 inh INHALATION DAILY clonazepam 0.5 mg tablet 0.5 mg PO BID PRN (Reason: Anxiety) pravastatin 40 mg tablet 40 mg PO BEDTIME Xtampza ER 9 mg cap,sprinkl,ER12hr(DONT CRUSH) 9 mg PO BEDTIME oxycodone 10 mg tablet 10 mg PO Q6H PRN (Reason: Pain) gabapentin 600 mg tablet 900 mg PO BEDTIME mirtazapine 30 mg tablet 30 mg PO BEDTIME quetiapine 200 mg tablet 200 mg PO BEDTIME finasteride 5 mg tablet 5 mg PO DAILY fluticasone propionate 50 mcg/actuation spray,suspension 1 spray intranasal DAILY PRN (Reason: allergies) amlodipine-benazepril 10-20 mg capsule 1 cap PO DAILY atenolol 25 mg tablet 25 mg PO DAILY@0900,1300 tamsulosin 0.4 mg capsule 0.4 mg PO DAILY famotidine 40 mg tablet 40 mg PO BEDTIME Discharge Orders: Discharge Order (Routine); Ordered 03/26/23 Ordered By: Uri Porter Diet: Advance to usual diet Activity on Discharge: As tolerated Stand Alone Forms: Patient Portal Discharge page Care Plan Goals: Your echocardiogram and stress test were both negative. You should follow-up with your primary care doctor for further workup Health Concerns: No changes were made to medication during this hospitalization Plan of Treatment: Resume all medications and therapies as prior to hospital Assessment: See discharge summary
== END 2023-03-26 12:43 | disposition home or self-care (01) ==
LOC: HO.ED 20:05 → HO.EDOVER 20:22 → HO.S3 21:06
PROVIDERS: Nurse Practitioner Family; Admitting Provider Student in an Organized Health Care Education/Training Program; Emergency Provider Emergency Medicine; PCP Student in an Organized Health Care Education/Training Program; Visit Provider Hospitalist
DX: R07.89 Other chest pain (principal); Z20.822 Contact with and (suspected) exposure to COVID-19; I10 Essential (primary) hypertension; E78.5 Hyperlipidemia, unspecified; F12.90 Cannabis use, unspecified, uncomplicated; G89.4 Chronic pain syndrome; Z87.891 Personal history of nicotine dependence; Z79.899 Other long term (current) drug therapy; Z79.891 Long term (current) use of opiate analgesic; Z79.02 Long term (current) use of antithrombotics/antiplatelets
CPT/HCPCS: 36415; 71046; 78452; 80048; 80053; 83690; 84484; 85025; 85379; 85610; 87635; 93005; 93017; 93306; 94640; 96372; 99221; 99285; A9500; J0280; J1650; J2785; Q9957

== ENCOUNTER 2023-04-17 09:32 | Outpatient (AMB) | payer MEDICARE, MEDICAID, SELFPAY ==
[2023-04-17 09:46] VITALS: BP 100/60; PULSE 60; O2SAT 99; BMI 20.9
--- NOTE | 2023-04-17 09:46 | MHC.OFFVIS ---
Intake Vital Signs 04/17/23 09:46 Height 5 ft 11 in Weight 149 lb 14.629 oz BMI 20.9 BP 100/60 Blood Pressure Location Lt brachial Position Sitting Pulse 60 Pulse Source Pulse Oximeter Pulse Oximetry (%) 99 Intake Visit Reasons: 3 wk f/up s/p [facility] per Intake Note: 3 week f/up s/p C per HS Developmental Therapist Required: No Allergies bupropion [From Wellbutrin] Allergy (Severe, Verified 04/17/23 09:52) Anaphylaxis Medication List - Last Reconciled 04/17/23 by Tiana Guadalupe, [employer] P[employer]SEMBLER-C amlodipine-benazepril 10-20 mg 1 cap PO DAILY aspirin 81 mg PO DAILY atenolol 25 mg PO DAILY@0900,1300 clonazepam 0.5 mg PO BID PRN famotidine 40 mg PO BEDTIME finasteride 5 mg PO DAILY fluticasone furoate-vilanterol 100-25 mcg/dose (Breo Ellipta) 1 inh inhalation DAILY fluticasone propionate 50 mcg/actuation 1 spray intranasal DAILY PRN gabapentin 900 mg PO BEDTIME lamotrigine ER (Lamictal XR) 250 mg PO BEDTIME mirtazapine 30 mg PO BEDTIME multivitamin 1 tab PO DAILY oxycodone 10 mg PO Q6H PRN oxycodone myristate ER (Xtampza ER) 9 mg PO BEDTIME pravastatin 40 mg PO BEDTIME quetiapine 200 mg PO BEDTIME sennosides (senna) 8.6 mg PO DAILY PRN tamsulosin 0.4 mg PO DAILY HPI 3 wk f/up s/p C per HPI Details Harrison is a 62-year-old male with past medical history of hypertension, Hyperlipidemia, chronic back discomfort with surgical rods in place who was recently evaluated for chest discomfort at [facility] and ruled out for ACS. Today he reports that he has not had chest discomfort since his hospital discharge. He has no chest discomfort at rest or with activity. He denies shortness of breath, palpitations, PND, orthopnea or edema. He does have some dizziness at times but no presyncope, syncope, falls. He has chronic back discomfort ambulates with 2 crutches. He admits to being mostly sedentary. He has no known cardiac history. He takes his medications as directed. [facility] Medical History (Updated 04/17/23 @ 12:10 by LINDEN Fallon) Anxiety Asthma Chronic pain syndrome Gastroesophageal reflux disease Hyperlipidemia Hypertension Osteoporosis Family History Maternal Grandfather Colon cancer Social History Alcohol intake: never Patient Tobacco Use Status: Former Tobacco user Second Hand Smoke Exposure: No Substance Use Type: Marijuana service: No Review of Systems Const All systems reviewed & are unremarkable except as noted in HPI and below ENT Reports dizziness Card Denies chest pain, Denies chest pain at rest, Denies chest pain with activity, Denies rapid heart rate, Denies pedal edema, Denies edema, Denies leg edema, Denies lightheadedness, Denies palpitations, Denies dyspnea, Denies dyspnea on exertion and Denies orthopnea Resp Denies cough, Denies dyspnea and Denies dyspnea on exertion GI Denies hematochezia and Denies change in stool character Musc Reports abnormal gait, Reports limited range of motion, Reports muscle cramps, Denies muscle weakness, Denies numbness, Denies radiating pain into limb, Denies stiffness and Denies tingling Neuro Reports abnormal gait, Reports dizziness, Denies numbness and Denies tingling Endo Denies palpitations Physical Exam Vital Signs: Last Vital Signs Pulse 60 04/17/23 09:46 BP 100/60 04/17/23 09:46 Pulse Ox 99 04/17/23 09:46 BMI result Body Mass Index 20.9 Const Other: thin built, ambulates with bilateral crutches General: cooperative, comfortable and no acute distress Orientation/consciousness: patient oriented x3 Neck Neck: Yes normal visual inspection Resp Effort & Inspection: normal respiratory effort Auscultation: clear to auscultation bilaterally, no crackles, no rales, no rhonchi and no wheezes Cardio Jugular venous distension: no JVD Rate: regular rate Rhythm: regular rhythm Heart sounds: S1 normal heart sound present, S2 normal heart sound present, no gallops, no murmurs and no rubs Neuro General: patient oriented x3 Extrem General: Yes normal to inspection Psych Appearance: grossly normal Mental Status: mental status grossly normal Speech and movement: Normal speech and movement present Assessment & Plan Assessment & Plan (1) Chest pain: Code(s): R07.9 - Chest pain, unspecified Plan: [facility] admission for midsternal chest discomfort that sounded typical in nature. He ruled out for ACS with normal troponins, EKG without ischemic findings. Echocardiogram showed EF 62%, no regional wall motion abnormalities. He then underwent a nuclear stress test showing normal myocardial perfusion imaging, EF 68%. He has cardiac risks of hypertension, hyperlipidemia. Today he reports that his chest discomfort resolved and has not reoccurred. He has had some mild lightheadedness which could be related to low blood pressure readings. signs and symptoms of true angina reviewed with him. Continue with risk factor modification including good blood pressure control, cholesterol control. (2) Hypertension: Code(s): I10 - Essential (primary) hypertension Plan: History of hypertension. Blood pressure was more elevated during hospital. he is currently on amlodipine 10 /benazepril 20 and atenolol 25 mg b.i.d. blood pressure today 100/60. He reports episodes of lightheadedness at times. Instructed to increase his fluid intake. Will reduce his amlodipine and benazepril down to 5/10. He periodically checks his blood pressure reading at home. Instructed to call if he has issues with elevated blood pressure readings or persistent hypotension. He has PCP follow-up in the fall. Will arrange for cardiology follow-up in 6 months, sooner if needed (3) Low blood pressure reading: Code(s): R03.1 - Nonspecific low blood-pressure reading (4) Hospital discharge follow-up: Code(s): Z09 - Encounter for follow-up examination after completed treatment for conditions other than malignant neoplasm Medications: New amlodipine-benazepril 5-10 mg 1 cap PO DAILY 90 caps 1RF Coding Level of Care Code Est Pt Level 4 (34175) Diagnoses Chest pain R07.9 Hypertension I10 Low blood pressure reading R03.1 Hospital discharge follow-up Z09 Time Spent (min) 26 Comment chart review, documentation, interview, assessment
== END 2023-04-17 10:17 | disposition home or self-care (01) ==
PROVIDERS: PCP Student in an Organized Health Care Education/Training Program; Visit Provider Nurse Practitioner Family
DX: R07.9 Chest pain, unspecified (principal); I10 Essential (primary) hypertension; R03.1 Nonspecific low blood-pressure reading; Z09 Encounter for follow-up examination after completed treatment for conditions other than malignant neoplasm
CPT/HCPCS: 99214

== ENCOUNTER → 2023-04-17 09:32 | Outpatient (BNVA) | payer MEDICARE, MEDICAID, SELFPAY | PROVIDERS: PCP Student in an Organized Health Care Education/Training Program; Visit Provider Nurse Practitioner Family | DX: Z09 Encounter for follow-up examination after completed treatment for conditions other than malignant neoplasm (principal); R07.9 Chest pain, unspecified; R03.1 Nonspecific low blood-pressure reading; I10 Essential (primary) hypertension | CPT/HCPCS: 99212 ==

== ENCOUNTER 2023-06-23 13:30 | Outpatient (AMB) | payer MEDICARE, MEDICAID, SELFPAY ==
[2023-06-23 13:39] VITALS: BP 120/58; PULSE 71; RESP 14; O2SAT 97; BMI 21.6
--- NOTE | 2023-06-23 13:39 | A.OFFVIS_ITS ---
Intake Vital Signs 06/23/23 13:39 Height 5 ft 11 in Weight 155 lb BMI 21.6 BP 120/58 L Blood Pressure Location Lt brachial Position Sitting Respiration 14 Pulse 71 Pulse Source Pulse Oximeter Pulse Oximetry (%) 97 Oxygen Delivery Method Room Air Intake Visit Reasons: follow up / procedure discussion Allergies bupropion [From Wellbutrin] Allergy (Severe, Verified 06/23/23 13:40) Anaphylaxis Medication List - Last Reconciled 06/23/23 by Ivette Bull LPN amlodipine-benazepril 5-10 mg 1 cap PO DAILY aspirin 81 mg PO DAILY atenolol 25 mg PO DAILY@0900,1300 clonazepam 0.5 mg PO BID PRN famotidine 40 mg PO BEDTIME finasteride 5 mg PO DAILY fluticasone furoate-vilanterol 100-25 mcg/dose (Breo Ellipta) 1 inh inhalation DAILY fluticasone propionate 50 mcg/actuation 1 spray intranasal DAILY PRN gabapentin 900 mg PO BEDTIME lamotrigine ER (Lamictal XR) 250 mg PO BEDTIME mirtazapine 30 mg PO BEDTIME multivitamin 1 tab PO DAILY oxycodone 10 mg PO Q6H PRN oxycodone myristate ER (Xtampza ER) 9 mg PO BEDTIME pravastatin 40 mg PO BEDTIME quetiapine 200 mg PO BEDTIME sennosides (senna) 8.6 mg PO DAILY PRN tamsulosin 0.4 mg PO DAILY HPI follow up / procedure discussion HPI Details 63-year-old male who presents today to t he office for a follow-up procedure discussion. The patient has a history of SIJ fusions in the past. He noticed muscle tightness (more on the right side than the left side) while bending forward. The patient has cleared his psychological evaluation for medial cluneal nerve st imulator trial with StimWave. [facility] Medical History (Updated 04/17/23 @ 12:10 by LINDEN Fallon) Hyperlipidemia Chronic pain syndrome Asthma Gastroesophageal reflux disease Anxiety Hypertension Osteoporosis Family History Maternal Grandfather Colon cancer Social History Alcohol intake: never Patient Tobacco Use Status: Former Tobacco user Second Hand Smoke Exposure: No Substance Use Type: Marijuana service: No Review of Systems Const All systems reviewed & are unremarkable except as noted in HPI and below Physical Exam Vital Signs: Last Vital Signs Pulse 71 06/23/23 13:39 Resp 14 06/23/23 13:39 BP 120/58 L 06/23/23 13:39 Pulse Ox 97 06/23/23 13:39 Oxygen Delivery Method Room Air 06/23/23 13:39 BMI result Body Mass Index 21.6 General: Appears afebrile. Alert and oriented. Mood and affect appropriate. Follows and participates in conversation appropriately. Respiratory effort is unlabored. Able to transition from sit to stand unassisted. Ambulates with bilaterally normal heel strike and toe off. Flexion is limited due to tightness in the lumbar spine muscles. Results Reviewed Results Reviewed: No imaging is available for review. 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 Continues to have debilitating sacral pain secondary to postoperative neuropathy. We will schedule bilateral medial cluneal nerve stimulator trial with Curonix under sedation. Discussed the risks and benefits of the procedure with the patient in detail. All questions were answered. The patient is on board with the plan. Justification for interventional therapy: ? Patient with average pain > 6/10 ? Patient has exhausted conservative therapy including SIJ fusions. ? Patient unable to tolerate physical therapy due to pain. Scribed for Dr. Lord by Bubba La, medical record consultant, on 06/23/2023. I, Dr. Lord, have personally reviewed and agree with the information entered by the scribe. Coding Level of Care Code Est Pt Level 3 (90634) Diagnoses SI (sacroiliac) joint dysfunction M53.3 Cluneal neuropathy G58.8
== END 2023-06-23 14:10 | disposition home or self-care (01) ==
PROVIDERS: PCP Student in an Organized Health Care Education/Training Program; Visit Provider Internal Medicine
DX: M53.3 Sacrococcygeal disorders, not elsewhere classified (principal); G58.8 Other specified mononeuropathies
CPT/HCPCS: 99213

== ENCOUNTER → 2023-06-23 13:30 | Outpatient (BNVA) | payer MEDICARE, MEDICAID, SELFPAY | PROVIDERS: PCP Student in an Organized Health Care Education/Training Program; Visit Provider Internal Medicine | DX: M53.3 Sacrococcygeal disorders, not elsewhere classified (principal); G58.8 Other specified mononeuropathies | CPT/HCPCS: 99212 ==

== ENCOUNTER 2023-08-20 10:33 | Day surgery (SDC) | payer MEDICARE, MEDICAID, SELFPAY ==
[2023-08-18 15:00] VITALS: BMI 21.6
--- NOTE | 2023-08-19 09:24 | HO.ANESPROP2 ---
HPI - Anesthesia Eval Consult details Narrative: 63yo M for Bilateral Medial Cluneal Nerve Stimulation Trial Chronic opioids 03/2023 [facility] admission for midsternal chest discomfort that sounded typical in nature. He ruled out for ACS with normal troponins, EKG without ischemic findings. Echocardiogram showed EF 62%, no regional wall motion abnormalities. He then underwent a nuclear stress test showing normal myocardial perfusion imaging, EF 68%. Post-d/c f/u with [facility] cardiology - stable without CP, BP meds reduced d/t low readings and episodes of lightheadedness. [facility] Active Problems Active Problems: All Active Problems (Updated 04/17/23 @ 12:10 by Tiana Guadalupe, ELECTRON BEAM OPERATOR-C) Hospital discharge follow-up (Acute) Hypertension (Acute) Low blood pressure reading (Acute) Osteopenia (Acute) Cluneal neuropathy (Acute) Opioid use (Acute) Depressive disorder (Acute) SI (sacroiliac) joint dysfunction (Acute) Past Medical History Medical History Hyperlipidemia Chronic pain syndrome Asthma Gastroesophageal reflux disease Anxiety Hypertension Osteoporosis Family History Family History Maternal Grandfather Colon cancer Surgical History Surgical History (Updated 08/20/23 @ 10:46 by Misa Hawkins RN) Hx of tonsillectomy History of ear surgery History of back surgery Social History Alcohol intake: never Patient Tobacco Use Status: Former Tobacco user Quit Date: 3 wks ago Second Hand Smoke Exposure: No Substance Use Type: Marijuana service: No Meds Allergies Allergy/AdvReac Type Severity Reaction Status Date / Time bupropion [From Wellbutrin] Allergy Severe Anaphylaxis Verified 08/20/23 10:46 Home Medications Medication Instructions Recorded Confirmed Last Taken Type atenolol 25 mg tablet 25 mg PO DAILY@0900,1300 03/11/22 08/20/23 08/20/23 08:00 History clonazepam 0.5 mg tablet 0.5 mg PO BID PRN Anxiety 03/11/22 08/20/23 Unknown History famotidine 40 mg tablet 40 mg PO BEDTIME 03/11/22 08/20/23 03/29/22 History finasteride 5 mg tablet 5 mg PO DAILY 03/11/22 08/20/23 03/24/23 History gabapentin 600 mg tablet 900 mg PO BEDTIME 03/11/22 08/20/23 03/29/22 History mirtazapine 30 mg tablet 30 mg PO BEDTIME 03/11/22 08/20/23 03/29/22 History oxycodone 10 mg tablet 10 mg PO Q6H PRN Pain 03/11/22 08/20/23 08/20/23 08:00 History oxycodone myristate 9 mg capsule 9 mg PO BEDTIME 03/11/22 08/20/23 03/30/22 History sprinkle extended release 12 hr(DON'T CRUSH) (Xtampza ER) pravastatin 40 mg tablet 40 mg PO BEDTIME 03/11/22 08/20/23 03/29/22 History quetiapine 200 mg tablet 200 mg PO BEDTIME 03/11/22 08/20/23 03/29/22 History tamsulosin 0.4 mg capsule 0.4 mg PO DAILY 03/11/22 08/20/23 08/20/23 08:00 History aspirin 81 mg tablet,delayed 81 mg PO DAILY 03/31/22 08/20/23 03/24/23 History release sennosides 8.6 mg tablet (senna) 8.6 mg PO DAILY PRN Constipation 03/31/22 08/20/23 Unknown History fluticasone furoate 100 1 inh inhalation DAILY 03/24/23 08/20/23 03/24/23 History mcg-vilanterol 25 mcg/dose inhalation powder (Breo Ellipta) lamotrigine 250 mg tablet,extended 250 mg PO BEDTIME 03/24/23 08/20/23 Unknown History release 24 hr (Lamictal XR) multivitamin 1 tab PO DAILY 03/24/23 08/20/23 03/24/23 History Exam Exam Date and Time: August 19, 2023 0924 Height,Weight and Vital Signs: Height 5 ft 11 in Weight 70.307 kg Pertinent Lab Results Pertinent Lab Results: Laboratory Tests 03/25/23 10:55 WBC 9.6 Hgb 16.1 Hct 47.5 Plt Count 300 Sodium 139 Potassium 3.4 Chloride 99 Carbon Dioxide 26 BUN 8 L Creatinine 0.97 Narrative Narrative: EKG 03/2023 Vent. Rate : 065 BPM Atrial Rate : 065 BPM P-R Int : 186 ms QRS Dur : 086 ms QT Int : 418 ms P-R-T Axes : 068 060 060 degrees QTc Int : 434 ms Normal sinus rhythm Normal ECG When compared with ECG of 31-MAR-2022 05:58, No significant change was found ECHO 03/2023 Vent. Rate : 065 BPM Atrial Rate : 065 BPM P-R Int : 186 ms QRS Dur : 086 ms QT Int : 418 ms P-R-T Axes : 068 060 060 degrees QTc Int : 434 ms Normal sinus rhythm Normal ECG When compared with ECG of 31-MAR-2022 05:58, No significant change was found NM marti perf SPECT rest & str 03/2023 Impression: 1. Myocardial perfusion imaging study shows likely normal myocardial perfusion 2. Gated LVEF is 68% 3. Transient ischemic dilatation not present EKG is nondiagnostic for ischemia Assessment and Plan Assessment Anesthesia Assessment: Chart Reviewed
--- NOTE | ~2023-08-20 | FL_ITS ---
EXAMINATION: XR FLUOROSCOPY WITH IMAGES CLINICAL INFORMATION: Bilateral medial cluneal nerve stimulation trial. COMPARISON: None available. TECHNIQUE: Fluoroscopy Supervised By: Dr. Zbigniew Lord. Fluoroscopy Time: 0.7 minutes. Cumulative Dose: 9.00 mGy. DAP: 1.67 Gycm2. Images: 2. FINDINGS: Images demonstrate wires projecting over the bilateral lateral lower lumbar sacral spine. Bilateral sacroiliac joint fusion hardware. FL/FL guidance in OR IMPRESSION: Fluoroscopy guidance for pain management procedure
[2023-08-20 10:56] VITALS: BMI 22.5
[2023-08-20 11:20] VITALS: BP 137/70; PULSE 61; RESP 16; TEMP 36.3; O2SAT 97
[2023-08-20] MEDS: Lactated Ringers 1,000 ML 100 ML IVCONT (11:22)
[2023-08-20 12:11] LABS: MRSA Nasal PCR NEGATIVE (Negative); SA Nasal PCR POSITIVE (Negative)
[2023-08-20 13:30] VITALS: BP 145/91; PULSE 85; RESP 6; TEMP 36.4; O2SAT 96
--- NOTE | 2023-08-20 13:35 | P.BOP_ITS ---
Brief Operative Note Date of Service: 08/20/23 Pre-op diagnosis: Medial cluneal neuropathy, sacroiliac joint related pain Post-op diagnosis: same Procedure: Medial cluneal nerve stimulator trial Implants: Curonix PNS trial leads Surgeon: Zbigniew Lord MD Anesthesia: MAC Was an Insulation Worker Furnace Installer used for this Procedure?: No Estimated blood loss (mL): 1 Pathology: none sent Condition: stable Disposition: PACU
--- NOTE | 2023-08-20 13:35 | MHC.SHP ---
Pre-Procedural Eval Section A Date of Service: 08/20/23 The patient is an INPATIENT: No Changes since office visit: Yes Patient answered all questions The History & Physical has been completed within 30 days and I have reviewed it.: No Section B Chief Complaint: Other specified mononeuropathies Relevant Social History: None Present Medications: see Short Stay Collaborative assessment Medical History: No relevant PMH History of Previous Operations: No relevant previous surgery Allergies: Allergies Allergy/AdvReac Type Severity Reaction Status Date / Time bupropion [From Wellbutrin] Allergy Severe Anaphylaxis Verified 08/20/23 10:46 Review of Systems Sugical H&P ROS: Negative: Constitution, Cardiovascular and Respiratory Exam Surgical H&P Exam: Normal: HEENT, Normal: Heart and Normal: Lungs Plan Diagnosis/Plan: Unchanged I have reviewed the history and physical and performed a pertinent physical examination on my patient. No changes have occurred unless specified. Time Spent With Patient Time: Total time managing care of this patient today ____ minutes.
--- NOTE | 2023-08-20 13:36 | P.OP_ITS ---
Operative Note Operative Note Date of Service: 08/20/23 Narrative: Percutaneous Trial of Stimulation of Medial Cluneal Nerves, Bilateral After obtaining written consent, pre-procedure blood pressure and heart rate were stable and recorded in the nursing record. A peripheral IV was started. Antibiotics, cefazolin 2 grams, were given prior to the start of the procedure. The patient was positioned in prone position. The lumbosacral area was widely prepped with chloraprep and draped in sterile fashion. Using fluoroscopy, the needle entry location was estimated on each side of the lumbar area. The skin at the insertion site was anesthetized with 0.5% lidocaine. A 14 gauge bent coude needle was used as an introducer. The introducer was advanced subcutaneously along the length of the lumbar paraspinal muscles until contact was established with the sacrum. The introducer was then rotated and walked off the edge of the sacrum overlying the medial cluneal nerves. The stylet was removed. The electrode array was passed through the introducer using a tenting approach at a shallow angle. Fluoroscopy was used to confirm appropriate lead position. Stimulation was performed and good coverage was obtained. The same procedure was utilized for the other side. The leads were secured using ticron sutures, steri- strips and tegaderms. The patient tolerated the procedure well. No complications were encountered. Following the procedure the patient's vital signs were stable. The patient was discharged home in good condition with post-procedural instructions. Time Out: Immediately prior to the procedure, the following was verbally confirmed that there is a signed consent form and that the correct patient, planned procedure, site and side are consistent with documentation and that necessary equipment and/or blood products are available prior to the start of the case. Complications: none EBL: <5 cc
[2023-08-20 13:45] VITALS: BP 152/84; PULSE 64; RESP 16; O2SAT 96
[2023-08-20 14:00] VITALS: BP 158/74; PULSE 57; RESP 16; TEMP 36.4; O2SAT 96
== END 2023-08-20 14:36 | disposition home or self-care (01) ==
PROVIDERS: Registered Nurse Emergency; PCP Student in an Organized Health Care Education/Training Program; Visit Provider Internal Medicine
PROC: (CPT 64555; principal; 2023-08-20 12:00)
DX: G58.8 Other specified mononeuropathies (principal); G89.4 Chronic pain syndrome; M53.3 Sacrococcygeal disorders, not elsewhere classified; M81.0 Age-related osteoporosis without current pathological fracture; Z79.82 Long term (current) use of aspirin; I10 Essential (primary) hypertension; J45.909 Unspecified asthma, uncomplicated; Z79.51 Long term (current) use of inhaled steroids; E78.5 Hyperlipidemia, unspecified; Z79.899 Other long term (current) drug therapy; Z88.8 Allergy status to other drugs, medicaments and biological substances; Z98.1 Arthrodesis status; Z87.891 Personal history of nicotine dependence
CPT/HCPCS: 64555 ×2; 87640; 87641; C1713; C1897; J0690; J1100; J2250; J2405; J2704; J2795; J3010

== ENCOUNTER → 2023-08-20 10:33 | Outpatient (BNV) | payer MEDICARE, MEDICAID, SELFPAY | PROVIDERS: PCP Student in an Organized Health Care Education/Training Program; Visit Provider Internal Medicine | DX: G58.8 Other specified mononeuropathies (principal) | CPT/HCPCS: 64555 ==

== ENCOUNTER 2023-08-25 10:07 | Outpatient (AMB) | payer MEDICARE, MEDICAID, SELFPAY ==
[2023-08-25 10:10] VITALS: BP 152/82; PULSE 82; RESP 12; O2SAT 98; BMI 22.5
--- NOTE | 2023-08-25 10:10 | MHC.OFFVIS ---
Intake Vital Signs 08/25/23 10:10 Height 5 ft 11 in Weight 161 lb BMI 22.5 BP 152/82 H Blood Pressure Location Lt brachial Position Sitting Respiration 12 Pulse 82 Pulse Source Pulse Oximeter Pulse Oximetry (%) 98 Oxygen Delivery Method Room Air Intake Visit Reasons: Medial Cluneal Nerve Curonix Trial 08/20/23/conf Allergies bupropion [From Wellbutrin] Allergy (Severe, Verified 08/20/23 10:46) Anaphylaxis HPI Medial Cluneal Nerve Curonix Trial 08/20/23/conf HPI Details 63-year-old male who presents today to the office for a status post medial cluneal nerve Curonix trial. The patient reports excellent pain relief. He states that his implant was misplaced during sleep. His implanted leads were pulled out of the targeted area. He has a SIJ belt at home. The patient is amenable to proceed with cluneal nerve stimulator implant. Past procedure: 08/20/23: Percutaneous Trial of Stimulation of Medial Cluneal Nerves, Bilateral: 100% relief for the duration that the leads were in place. [facility] Medical History Hyperlipidemia Chronic pain syndrome Asthma Gastroesophageal reflux disease Anxiety Hypertension Osteoporosis Surgical History (Updated 08/20/23 @ 10:46 by Misa Hawkins RN) Hx of tonsillectomy History of ear surgery History of back surgery Family History Maternal Grandfather Colon cancer Alcohol intake: never Patient Tobacco Use Status: Former Tobacco user Quit Date: 3 wks ago Second Hand Smoke Exposure: No Substance Use Type: Marijuana service: No Review of Systems Const All systems reviewed & are unremarkable except as noted in HPI and below Physical Exam Vital Signs: Last Vital Signs Pulse 82 08/25/23 10:10 Resp 12 08/25/23 10:10 BP 152/82 H 08/25/23 10:10 Pulse Ox 98 08/25/23 10:10 Oxygen Delivery Method Room Air 08/25/23 10:10 BMI result Body Mass Index 22.5 General: Appears afebrile. Alert and oriented. Mood and affect appropriate. Follows and participates in conversation appropriately. Respiratory effort is unlabored. Able to transition from sit to stand unassisted. Ambulates with bilaterally normal heel strike and toe off. Leads removed with tip intact. Lead insertion site is clean and dry. Results Reviewed Results Reviewed: No imaging is available for review. 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 Discussed the risks and benefits of the procedure with the patient in detail. All questions were answered. The patient is on board with the plan. Justification for interventional therapy: ? Patient with average pain > 6/10 ? Patient has exhausted conservative therapy . Trial leads provided 100% pain relief Scribed for Dr. Lord by Bubba La, hospitalist medical director, on 08/25/2023. I, Dr. Lord, have personally reviewed and agree with the information entered by the scribe. 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
== END 2023-08-25 10:41 | disposition home or self-care (01) ==
PROVIDERS: PCP Student in an Organized Health Care Education/Training Program; Visit Provider Internal Medicine
DX: G58.8 Other specified mononeuropathies (principal)
CPT/HCPCS: 99024

== ENCOUNTER → 2023-08-25 10:07 | Outpatient (BNVA) | payer MEDICARE, MEDICAID, SELFPAY | PROVIDERS: PCP Student in an Organized Health Care Education/Training Program; Visit Provider Internal Medicine | DX: G58.8 Other specified mononeuropathies (principal) | CPT/HCPCS: 99212 ==

== ENCOUNTER 2023-10-28 15:11 | Outpatient (AMB) | payer MEDICARE, MEDICAID, SELFPAY ==
--- NOTE | 2023-10-28 15:13 | MHC.OFFVIS ---
Intake Vital Signs 10/28/23 15:14 Height 5 ft 11 in Weight 164 lb 14.492 oz BMI 23.0 BP 130/82 Blood Pressure Location Lt brachial Position Sitting Pulse 65 Pulse Source Pulse Oximeter Intake Visit Reasons: r/s 6 mos followup Linux Admin Engineer Required: No Barrel Inspector: Barrel Inspector Present Allergies bupropion [From Wellbutrin] Allergy (Severe, Verified 10/28/23 15:17) Anaphylaxis Medication List - Last Reconciled 10/28/23 by CAPRI FallonC amlodipine-benazepril 5-10 mg 1 cap PO DAILY aspirin 81 mg PO DAILY atenolol 25 mg PO DAILY@0900,1300 clonazepam 0.5 mg PO BID PRN famotidine 40 mg PO BEDTIME finasteride 5 mg PO DAILY fluticasone furoate-vilanterol 100-25 mcg/dose (Breo Ellipta) 1 inh inhalation DAILY gabapentin 900 mg PO BEDTIME lamotrigine ER (Lamictal XR) 250 mg PO BEDTIME mirtazapine 30 mg PO BEDTIME multivitamin 1 tab PO DAILY oxycodone 10 mg PO Q6H PRN oxycodone myristate ER (Xtampza ER) 9 mg PO BEDTIME pantoprazole 40 mg PO BID pravastatin 40 mg PO BEDTIME quetiapine 200 mg PO BEDTIME sennosides (senna) 8.6 mg PO DAILY PRN tamsulosin 0.4 mg PO DAILY HPI r/s 6 mos followup HPI Details Harrison is a 62-year-old male with past medical history of hypertension, Hyperlipidemia, chronic back discomfort with surgical rods in place who was admitted to [facility] March 2023 with chest discomfort and ruled out for ACS. Today he reports he has been doing well since his last visit in April. He has not had any recurrent chest discomfort. Denies heart palpitations, shortness of breath, lightheadedness, presyncope, syncope, PND, orthopnea or edema. He is mostly sedentary due to his chronic back issues. He ambulates slowly today with use of 2 canes. Tells me he will be having a spinal stimulator inserted recently. He did have the trial and it was very effective for him. His is present. [facility] Medical History Hyperlipidemia Chronic pain syndrome Asthma Gastroesophageal reflux disease Anxiety Hypertension Osteoporosis Surgical History Hx of tonsillectomy History of ear surgery History of back surgery Family History Maternal Grandfather Colon cancer Social History Alcohol intake: never Patient Tobacco Use Status: Former Tobacco user Quit Date: 3 wks ago Second Hand Smoke Exposure: No Substance Use Type: Marijuana service: No Review of Systems Const All systems reviewed & are unremarkable except as noted in HPI and below ENT Denies dizziness Card Denies chest pain, Denies chest pain at rest, Denies chest pain with activity, Denies rapid heart rate, Denies pedal edema, Denies edema, Denies leg edema, Denies lightheadedness, Denies palpitations, Denies dyspnea, Reports dyspnea on exertion and Denies orthopnea Resp Denies cough, Denies dyspnea and Reports dyspnea on exertion GI Denies hematochezia and Denies change in stool character Musc Details: Chronic back pain, using 2 crutches Reports abnormal gait, Denies limited range of motion, Denies muscle cramps, Denies muscle weakness, Denies numbness, Denies radiating pain into limb, Denies stiffness and Denies tingling Neuro Reports abnormal gait, Denies dizziness, Denies numbness and Denies tingling Endo Denies palpitations Physical Exam Vital Signs: BMI result Body Mass Index 23.0 Const Other: Ambulates with 2 crutches General: cooperative, healthy appearing, comfortable and no acute distress Orientation/consciousness: patient oriented x3 Neck Neck: Yes normal visual inspection Resp Effort & Inspection: normal respiratory effort Auscultation: clear to auscultation bilaterally, no crackles, no rales, no rhonchi and no wheezes Cardio Jugular venous distension: no JVD Rate: regular rate Rhythm: regular rhythm Heart sounds: S1 normal heart sound present, S2 normal heart sound present, no murmurs and no rubs Neuro General: patient oriented x3 Extrem General: Yes normal to inspection, No no pedal edema and No calf tenderness Psych Appearance: grossly normal Mental Status: mental status grossly normal Speech and movement: Normal speech and movement present Assessment & Plan Assessment & Plan (1) Chest pain: Code(s): R07.9 - Chest pain, unspecified Qualifiers: Chest pain type: unspecified Qualified Code(s): R07.9 - Chest pain, unspecified Plan: [facility] admission 03/2023 for midsternal chest discomfort that sounded typical in nature. He ruled out for ACS with normal troponins, EKG without ischemic findings. Echocardiogram showed EF 62%, no regional wall motion abnormalities. He then underwent a nuclear stress test showing normal myocardial perfusion imaging, EF 68%. He has cardiac risks of hypertension, hyperlipidemia. Today he reports no recurrent chest discomfort since that time. Reviewed need for ongoing risk factor modification including blood pressure and cholesterol control. Increase physical activity as able. Signs and symptoms of angina reviewed with him. Cardiology follow-up 6 months, sooner if needed. If remains stable then maybe will change to p.r.n. (2) Hypertension: Code(s): I10 - Essential (primary) hypertension Qualifiers: Hypertension type: primary hypertension Qualified Code(s): I10 - Essential (primary) hypertension Plan: History of hypertension. Blood pressure was more elevated during hospital. Normal range at present. Currently on amlodipine 5mg /benazepril 10mg and atenolol 25 mg b.i.d.. Previously he had reported some lightheadedness however this has since resolved. Labs done 03/25/2023 showed potassium 3.4, creatinine 0.97. Continue current management. Plan Time spent on chart review, documentation, interview and assess Coding Level of Care Code Est Pt Level 3 (93049) Diagnoses Chest pain, unspecified type R07.9 Chest pain type: unspecified Primary hypertension I10 Hypertension type: primary hypertension Time Spent (min) 22
[2023-10-28 15:14] VITALS: BP 130/82; PULSE 65; BMI 23.0
== END 2023-10-28 15:36 | disposition home or self-care (01) ==
PROVIDERS: PCP Student in an Organized Health Care Education/Training Program; Visit Provider Nurse Practitioner Family
DX: R07.9 Chest pain, unspecified (principal); I10 Essential (primary) hypertension
CPT/HCPCS: 99213

== ENCOUNTER → 2023-10-28 15:11 | Outpatient (BNVA) | payer MEDICARE, MEDICAID, SELFPAY | PROVIDERS: PCP Student in an Organized Health Care Education/Training Program; Visit Provider Nurse Practitioner Family | DX: R07.9 Chest pain, unspecified (principal); I10 Essential (primary) hypertension; Z79.899 Other long term (current) drug therapy | CPT/HCPCS: 99212 ==

== ENCOUNTER 2023-11-12 09:54 | Day surgery (SDC) | payer MEDICARE, MEDICAID, SELFPAY ==
[2023-11-10 10:51] VITALS: BMI 22.9
--- NOTE | 2023-11-11 09:32 | P.CONAN_ITS ---
Documented by User: Elaine Pop NP 11/11/23 09:33 HPI - Anesthesia Eval Consult details Narrative: 63yo M for Bilateral Cluneal Nerve Stimulator Implant s/p trial 08/2023 with [facility] Active Problems Active Problems: All Active Problems (Updated 10/28/23 @ 15:19 by Tiana Guadalupe, SHEYLA-C) Hospital discharge follow-up (Acute) Low blood pressure reading (Acute) Osteopenia (Acute) Cluneal neuropathy (Acute) Opioid use (Acute) Depressive disorder (Acute) SI (sacroiliac) joint dysfunction (Acute) Hypertension (Acute) Past Medical History Medical History Hyperlipidemia Chronic pain syndrome Asthma Gastroesophageal reflux disease Anxiety Hypertension Osteoporosis Family History Family History Maternal Grandfather Colon cancer Surgical History Surgical History (Updated 11/10/23 @ 10:47 by Lindsay Monzon RN) S/P placement of nerve stimulator Hx of tonsillectomy History of ear surgery History of back surgery Social History Social History Alcohol intake: never Patient Tobacco Use Status: Current everyday Tobacco user Tobacco use type: Cigarette Second Hand Smoke Exposure: No Substance Use Type: Marijuana service: No Meds Allergies Allergy/AdvReac Type Severity Reaction Status Date / Time bupropion [From Wellbutrin] Allergy Severe Anaphylaxis Verified 11/12/23 10:17 Home Medications Medication Instructions Recorded Confirmed Last Taken Type atenolol 25 mg tablet 25 mg PO DAILY@0900,1300 03/11/22 11/10/23 08/20/23 08:00 History clonazepam 0.5 mg tablet 0.5 mg PO BID PRN Anxiety 03/11/22 11/10/23 Unknown History famotidine 40 mg tablet 40 mg PO BEDTIME 03/11/22 11/10/23 03/29/22 History finasteride 5 mg tablet 5 mg PO DAILY 03/11/22 11/10/23 03/24/23 History gabapentin 600 mg tablet 900 mg PO BEDTIME 03/11/22 11/10/23 03/29/22 History mirtazapine 30 mg tablet 30 mg PO BEDTIME 03/11/22 11/10/23 03/29/22 History oxycodone 10 mg tablet 10 mg PO Q6H PRN Pain 03/11/22 11/10/23 08/20/23 08:00 History oxycodone myristate 9 mg capsule 9 mg PO BEDTIME 03/11/22 11/10/23 03/30/22 History sprinkle extended release 12 hr(DON'T CRUSH) (Xtampza ER) pravastatin 40 mg tablet 40 mg PO BEDTIME 03/11/22 11/10/23 03/29/22 History quetiapine 200 mg tablet 200 mg PO BEDTIME 03/11/22 11/10/23 03/29/22 History tamsulosin 0.4 mg capsule 0.4 mg PO DAILY 03/11/22 11/10/23 08/20/23 08:00 History aspirin 81 mg tablet,delayed 81 mg PO DAILY 03/31/22 11/10/23 03/24/23 History release sennosides 8.6 mg tablet (senna) 8.6 mg PO DAILY PRN Constipation 03/31/22 11/10/23 Unknown History fluticasone furoate 100 1 inh inhalation DAILY 03/24/23 11/10/23 03/24/23 History mcg-vilanterol 25 mcg/dose inhalation powder (Breo Ellipta) lamotrigine 250 mg tablet,extended 250 mg PO BEDTIME 03/24/23 11/10/23 Unknown History release 24 hr (Lamictal XR) multivitamin 1 tab PO DAILY 03/24/23 11/10/23 03/24/23 History pantoprazole 40 mg tablet,delayed 40 mg PO BID 10/28/23 11/10/23 Unknown History release Exam Height,Weight and Vital Signs: Height 5 ft 11 in Weight 74.389 kg Pertinent Lab Results Pertinent Lab Results: Laboratory Tests 03/25/23 10:55 WBC 9.6 Hgb 16.1 Hct 47.5 Plt Count 300 Sodium 139 Potassium 3.4 Chloride 99 Carbon Dioxide 26 BUN 8 L Creatinine 0.97 Narrative Narrative: EKG 03/2023 Vent. Rate : 065 BPM Atrial Rate : 065 BPM P-R Int : 186 ms QRS Dur : 086 ms QT Int : 418 ms P-R-T Axes : 068 060 060 degrees QTc Int : 434 ms Normal sinus rhythm Normal ECG When compared with ECG of 31-MAR-2022 05:58, No significant change was found ECHO 03/2023 Vent. Rate : 065 BPM Atrial Rate : 065 BPM P-R Int : 186 ms QRS Dur : 086 ms QT Int : 418 ms P-R-T Axes : 068 060 060 degrees QTc Int : 434 ms Normal sinus rhythm Normal ECG When compared with ECG of 31-MAR-2022 05:58, No significant change was found NM marti perf SPECT rest & str 03/2023 Impression: 1. Myocardial perfusion imaging study shows likely normal myocardial perfusion 2. Gated LVEF is 68% 3. Transient ischemic dilatation not present EKG is nondiagnostic for ischemia Assessment and Plan Assessment Anesthesia Assessment: Chart Reviewed Documented by User: Isaiah Solorzano MD 11/12/23 11:36 [facility] Past Medical History Medical History Hyperlipidemia Chronic pain syndrome Asthma Gastroesophageal reflux disease Anxiety Hypertension Osteoporosis Family History Family History Maternal Grandfather Colon cancer Family history of problems with anesthesia: No Surgical History Surgical History (Updated 11/10/23 @ 10:47 by Lindsay Monzon RN) S/P placement of nerve stimulator Hx of tonsillectomy History of ear surgery History of back surgery Social History Social History Alcohol intake: never Patient Tobacco Use Status: Current everyday Tobacco user Tobacco use type: Cigarette Second Hand Smoke Exposure: No Substance Use Type: Marijuana service: No Meds Allergies Allergy/AdvReac Type Severity Reaction Status Date / Time bupropion [From Wellbutrin] Allergy Severe Anaphylaxis Verified 11/12/23 10:17 Home Medications Medication Instructions Recorded Confirmed Last Taken Type atenolol 25 mg tablet 25 mg PO DAILY@0900,1300 03/11/22 11/10/23 08/20/23 08:00 History clonazepam 0.5 mg tablet 0.5 mg PO BID PRN Anxiety 03/11/22 11/10/23 Unknown History famotidine 40 mg tablet 40 mg PO BEDTIME 03/11/22 11/10/23 03/29/22 History finasteride 5 mg tablet 5 mg PO DAILY 03/11/22 11/10/23 03/24/23 History gabapentin 600 mg tablet 900 mg PO BEDTIME 03/11/22 11/10/23 03/29/22 History mirtazapine 30 mg tablet 30 mg PO BEDTIME 03/11/22 11/10/23 03/29/22 History oxycodone 10 mg tablet 10 mg PO Q6H PRN Pain 03/11/22 11/10/23 08/20/23 08:00 History oxycodone myristate 9 mg capsule 9 mg PO BEDTIME 03/11/22 11/10/23 03/30/22 History sprinkle extended release 12 hr(DON'T CRUSH) (Xtampza ER) pravastatin 40 mg tablet 40 mg PO BEDTIME 03/11/22 11/10/23 03/29/22 History quetiapine 200 mg tablet 200 mg PO BEDTIME 03/11/22 11/10/23 03/29/22 History tamsulosin 0.4 mg capsule 0.4 mg PO DAILY 03/11/22 11/10/23 08/20/23 08:00 History aspirin 81 mg tablet,delayed 81 mg PO DAILY 03/31/22 11/10/23 03/24/23 History release sennosides 8.6 mg tablet (senna) 8.6 mg PO DAILY PRN Constipation 03/31/22 11/10/23 Unknown History fluticasone furoate 100 1 inh inhalation DAILY 03/24/23 11/10/23 03/24/23 History mcg-vilanterol 25 mcg/dose inhalation powder (Breo Ellipta) lamotrigine 250 mg tablet,extended 250 mg PO BEDTIME 03/24/23 11/10/23 Unknown History release 24 hr (Lamictal XR) multivitamin 1 tab PO DAILY 03/24/23 11/10/23 03/24/23 History pantoprazole 40 mg tablet,delayed 40 mg PO BID 10/28/23 11/10/23 Unknown History release Exam Airway Mallampati Class: II TM Dist: >3cm Neck ROM: Full Loose/Missing/Broken Teeth: Yes and Lower (b23) Heart: rrr Lungs: cta b/l Assessment and Plan Assessment Anesthesia Assessment: Anesthesia Plan Discussed Final Anesthetic Review Family History of Problems with Anesthesia: No NPO: Yes ASA Class: II Final Preanesthetic Review: No Changes in Pt Med Stat, Consent Obtained/Reviewed and Anes Risks/Benef Reviewed Patient Risk: Intermediate Procedure Risk: Low Anesthetic Plan Anesthetic Plan: MAC: Disposition: Standard PACU
--- NOTE | ~2023-11-12 | FL_ITS ---
EXAMINATION: XR FLUOROSCOPY WITH IMAGES CLINICAL INFORMATION: Bilateral medial cluneal nerve stimulation trial. , Reason for Exam Cluneal nerve stimulator implant. COMPARISON: August 2023 TECHNIQUE: Fluoroscopy Supervised By: Zbigniew Lord Fluoroscopy Time: 0.6 minutes. Cumulative Dose air kerma: 9.48 mGy. # Images: 2. FINDINGS: Images demonstrate wires projecting over the bilateral lateral lower lumbar sacral spine. Bilateral sacroiliac joint fusion hardware. FL/FL guidance in OR IMPRESSION: Fluoroscopy guidance for pain management procedure
[2023-11-12 10:20] VITALS: BMI 23.1
[2023-11-12 10:35] VITALS: BP 142/81; PULSE 57; RESP 16; TEMP 36.7; O2SAT 97
[2023-11-12] MEDS: Lactated Ringers 1,000 ML 100 ML IVCONT (10:47)
--- NOTE | 2023-11-12 11:40 | MHC.SHP ---
Pre-Procedural Eval Section A - 24 Hr Update-Section A only Date of Service: 11/12/23 The patient is an INPATIENT: No Changes since office visit: Yes Patient answered all questions The patient has been examined within 24 hours of the surgical procedure. The History & Physical has been completed within 30 days and I have reviewed it.: No Section B - Complete if H&P > 30 days Chief Complaint: Other specified mononeuropathies Relevant Family History (Specify if Yes): Yes Relevant Social History: None Present Medications: see Short Stay Collaborative assessment Medical History: No relevant PMH History of Previous Operations: No relevant previous surgery Allergies: Allergies Allergy/AdvReac Type Severity Reaction Status Date / Time bupropion [From Wellbutrin] Allergy Severe Anaphylaxis Verified 11/12/23 10:17 Review of Systems Sugical H&P ROS: Negative: Constitution, Cardiovascular and Respiratory Exam Surgical H&P Exam: Normal: HEENT, Normal: Heart and Normal: Lungs Plan Diagnosis/Plan: Unchanged I have reviewed the history and physical and performed a pertinent physical examination on my patient. No changes have occurred unless specified. Time Spent With Patient Time: Total time managing care of this patient today ____ minutes.
--- NOTE | 2023-11-12 11:41 | PM.OP ---
Brief Operative Note Date of Service: 11/12/23 Pre-op diagnosis: Middle cluneal neuropathy, sacroiliac joint pain Post-op diagnosis: same Procedure: Middle cluneal nerve stimulator implant, bilateral Implants: Curonix PNS system Surgeon: Zbigniew Lord MD Anesthesia: MAC Was an Ping Pong Table Assembler used for this Procedure?: No Estimated blood loss (mL): 10 Pathology: none sent Condition: stable Disposition: PACU
--- NOTE | 2023-11-12 11:41 | W.PM.OPN ---
Operative Note Operative Note Date of Service: 11/12/23 Narrative: Peripheral Nerve Stimulator Implant for Middle Cluneal Nerves, Bilateral After obtaining written consent, pre-procedure blood pressure and heart rate were stable and recorded in the nursing record. A peripheral IV was started. Antibiotics, cefazolin 2 g, were given prior to the start of the procedure. The patient was positioned in prone position and sedated by the childcare center administrator. The thoracolumbar area was widely prepped with chloraprep and draped in sterile fashion. Using fluoroscopy, the needle entry location was estimated on each side of the lumbar area. The skin at the insertion site was anesthetized with a mixture of 0.5% lidocaine and 0.25% ropivacaine.?The skin entry site was incised with a stab incision using a 15 blade and dissected approximately 1 cm deep using a combination of electrocautery and blunt dissection. A 14 gauge epimed needle was used as an introducer and advanced subcutaneously along the length of the lumbar paraspinal muscles until contact was established with the sacrum on both sides.The introducer was then rotated and walked off the edge of the sacrum overlying the medial cluneal nerves. The 1x4 electrode array was passed through the introducer using a tenting approach at a shallow angle. Fluoroscopy was used to confirm appropriate lead position. The rigid stylet was removed and the copper stylet was inserted. The needles were completely removed. Stimulation was performed and good coverage was obtained. The leads were tied down to the tissue at the insertion sites using 0 Tycron sutures. A pocket was then created in the midline in the thoracic spine area approximately 1 cm from the level of the skin. The skin incision was made with a 15 blade followed by a combination of electrocautery and blunt dissection. The leads were tunneled in a parallel fashion to the pocket site. A single knot was then placed on each of the leads to secure the copper stylet in place. The excess lead beyond the knot was coiled and tied with 0 silk ties. The coiled portion of the lead was then placed in the pocket. The pocket was then irrigated with vancomycin solution. All incision sites were closed with 3-0 Vicryl for deep dermal layer and 4-0 Vicryl for skin. All 3 incision sites were dressed with Exofin, steri-strips and op-site dressings. The patient tolerated the procedure well. No complications were encountered. Following the procedure the patient's vital signs were stable. The patient was discharged home in good condition with post-procedural instructions. Time Out: Immediately prior to the procedure, the following was verbally confirmed that there is a signed consent form and that the correct patient, planned procedure, site and side are consistent with documentation and that necessary equipment and/or blood products are available prior to the start of the case. Complications: none EBL: 10 cc
[2023-11-12 13:30] LABS: MRSA Nasal PCR NEGATIVE (Negative); SA Nasal PCR POSITIVE (Negative)
[2023-11-12 14:00] VITALS: BP 166/89; PULSE 57; RESP 17; TEMP 36.6; O2SAT 96
[2023-11-12 14:15] VITALS: BP 174/92; PULSE 52; RESP 17; O2SAT 95
[2023-11-12 14:30] VITALS: BP 168/91; PULSE 53; RESP 16; TEMP 36.6; O2SAT 96
== END 2023-11-12 15:42 | disposition home or self-care (01) ==
PROVIDERS: Registered Nurse Emergency; PCP Student in an Organized Health Care Education/Training Program; Visit Provider Internal Medicine
PROC: (CPT 64555; principal; 2023-11-12 11:30)
DX: G58.8 Other specified mononeuropathies (principal); G89.4 Chronic pain syndrome; M46.1 Sacroiliitis, not elsewhere classified; M81.0 Age-related osteoporosis without current pathological fracture; I10 Essential (primary) hypertension; E78.5 Hyperlipidemia, unspecified; F41.9 Anxiety disorder, unspecified; J45.909 Unspecified asthma, uncomplicated; K21.9 Gastro-esophageal reflux disease without esophagitis; Z79.82 Long term (current) use of aspirin; Z79.51 Long term (current) use of inhaled steroids; Z79.899 Other long term (current) drug therapy; Z88.8 Allergy status to other drugs, medicaments and biological substances; F17.210 Nicotine dependence, cigarettes, uncomplicated
CPT/HCPCS: 64555 ×2; 87640; 87641; C1713; C1816; J0690; J2250; J2704; J2795; J3010

== ENCOUNTER → 2023-11-12 09:54 | Outpatient (BNV) | payer MEDICARE, MEDICAID, SELFPAY | PROVIDERS: PCP Student in an Organized Health Care Education/Training Program; Visit Provider Internal Medicine | DX: G58.8 Other specified mononeuropathies (principal) | CPT/HCPCS: 64555 ==

== ENCOUNTER 2023-11-17 11:02 | Outpatient (AMB) | payer MEDICARE, MEDICAID, SELFPAY ==
--- NOTE | 2023-11-17 11:04 | A.OFFVIS_ITS ---
Intake Vital Signs 11/17/23 11:07 Height 5 ft 11 in Weight 164 lb BMI 22.9 BP 152/72 H Blood Pressure Location Lt brachial Position Sitting Respiration 12 Pulse 67 Pulse Source Pulse Oximeter Pulse Oximetry (%) 97 Oxygen Delivery Method Room Air Intake Visit Reasons: S/p [employer]onix Cluneal Nerve Stim IMPLANT 11/12/23 Allergies bupropion [From Wellbutrin] Allergy (Severe, Verified 11/17/23 11:09) Anaphylaxis Medication List - Last Reconciled 11/17/23 by Ivette Bull LPN amlodipine-benazepril 5-10 mg 1 cap PO DAILY aspirin 81 mg PO DAILY atenolol 25 mg PO DAILY@0900,1300 clonazepam 0.5 mg PO BID PRN famotidine 40 mg PO BEDTIME finasteride 5 mg PO DAILY fluticasone furoate-vilanterol 100-25 mcg/dose (Breo Ellipta) 1 inh inhalation DAILY gabapentin 900 mg PO BEDTIME lamotrigine ER (Lamictal XR) 250 mg PO BEDTIME mirtazapine 30 mg PO BEDTIME multivitamin 1 tab PO DAILY oxycodone 10 mg PO Q8H PRN oxycodone myristate ER (Xtampza ER) 9 mg PO BEDTIME pantoprazole 40 mg PO BID pravastatin 40 mg PO BEDTIME quetiapine 200 mg PO BEDTIME sennosides (senna) 8.6 mg PO DAILY PRN tamsulosin 0.4 mg PO DAILY HPI S/p Curonix Cluneal Nerve Stim IMPLANT 11/12/23 HPI Details 63-year-old male who presents today to t he office for a status post bilateral middle cluneal nerve stimulator implant. The patient reports 70% relief following the procedure. He states that his usual pain has significant improved. He still has mild difficulty getting up and down. Past procedure: 11/12/23: Peripheral Nerve Stimulator Im plant for Middle Cluneal Nerves, Bilateral: 70% relief so far with some post procedural pain and tenderness. 08/20/23: Percutaneous Trial of Stimulat ion of Medial Cluneal Nerves, Bilateral: 100% relief for the duration that the leads were in place. [facility] Medical History Hyperlipidemia Chronic pain syndrome Asthma Gastroesophageal reflux disease Anxiety Hypertension Osteoporosis Surgical History S/P placement of nerve stimulator Hx of tonsillectomy History of ear surgery History of back surgery Family History Maternal Grandfather Colon cancer Social History Alcohol intake: never Patient Tobacco Use Status: Current everyday Tobacco user Tobacco use type: Cigarette Second Hand Smoke Exposure: No Substance Use Type: Marijuana service: No Review of Systems Const All systems reviewed & are unremarkable except as noted in HPI and below Physical Exam Vital Signs: Last Vital Signs Pulse 67 11/17/23 11:07 Resp 12 11/17/23 11:07 BP 152/72 H 11/17/23 11:07 Pulse Ox 97 11/17/23 11:07 Oxygen Delivery Method Room Air 11/17/23 11:07 BMI result Body Mass Index 22.9 General: Appears afebrile. Alert and oriented. Mood and affect appropriate. Follows and participates in conversation appropriately. Respiratory effort is unlabored. Able to transition from sit to stand unassisted. Ambulates with bilaterally normal heel strike and toe off. All incisions are clean dry and intact. Dressings were changed in the office today. Results Reviewed Results Reviewed: No imaging is available for review. 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 The patient will follow up in one week for dressing removal and wound check. The patient was also educated about device operation and provided with a fitted belt to wear his antenna. Scribed for Dr. Lord by Bubba La, biomedical equipment technician, on 11/17/2023. I, Dr. Lord, have personally reviewed and agree with the information entered by the scribe. Coding Level of Care Code Est Pt Level 3 (05131) Diagnoses SI (sacroiliac) joint dysfunction M53.3 Cluneal neuropathy G58.8
[2023-11-17 11:07] VITALS: BP 152/72; PULSE 67; RESP 12; O2SAT 97; BMI 22.9
== END 2023-11-17 11:56 | disposition home or self-care (01) ==
PROVIDERS: PCP Student in an Organized Health Care Education/Training Program; Visit Provider Internal Medicine
DX: M53.3 Sacrococcygeal disorders, not elsewhere classified (principal); G58.8 Other specified mononeuropathies
CPT/HCPCS: 99024

== ENCOUNTER → 2023-11-17 11:02 | Outpatient (BNVA) | payer MEDICARE, MEDICAID, SELFPAY | PROVIDERS: PCP Student in an Organized Health Care Education/Training Program; Visit Provider Internal Medicine | DX: M53.3 Sacrococcygeal disorders, not elsewhere classified (principal); G58.8 Other specified mononeuropathies | CPT/HCPCS: 99212 ==

== ENCOUNTER 2023-11-28 11:11 | Outpatient (AMB) | payer MEDICARE, MEDICAID, SELFPAY ==
--- NOTE | 2023-11-28 11:24 | MHC.OFFVIS ---
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 The patient reports 00% relief following the procedure. He states that his usual pain has significant improved. Patient reports he has improvement in his daily functioning, mobility, improvement with getting up and down and sleep. No program adjustments needed per [employer] rep during today's visit. Denies any recent cough, cold, infection, fever, any significant changes in her medical history, medications or recent hospitalizations. Past procedure: 11/12/23: Peripheral Nerve Stimulator Implant for Middle Cluneal Nerves, Bilateral: 70% relief so far with some post procedural pain and tenderness. 08/20/23: Percutaneous Trial of Stimulation of Medial Cluneal Nerves, Bilateral: 100% relief for the duration that the leads were in place. ON LICENSE OF [facility] Medical History Hyperlipidemia Chronic pain syndrome Asthma Gastroesophageal reflux disease Anxiety Hypertension Osteoporosis Surgical History S/P placement of nerve stimulator Hx of tonsillectomy History of ear surgery History of back surgery Family History Maternal Grandfather Colon cancer Social History Alcohol intake: never Patient Tobacco Use Status: Current everyday Tobacco user Tobacco use type: Cigarette Second Hand Smoke Exposure: No Substance Use Type: Marijuana service: No Review of Systems Const All systems reviewed & are unremarkable except as noted in HPI and below Physical Exam Vital Signs: Last Vital Signs Pulse 57 11/28/23 11:27 BP 137/63 11/28/23 11:27 Pulse Ox 98 11/28/23 11:27 Oxygen Delivery Method Room Air 11/28/23 11:27 BMI result Body Mass Index 22.6 General: Appears afebrile. Alert and oriented. Mood and affect appropriate. Follows and participates in conversation appropriately. Respiratory effort is unlabored. Able to transition from sit to stand unassisted. Ambulates with bilaterally normal heel strike and toe off. All incisions are clean dry and intact. Dressings were changed in the office today. Results Reviewed Results Reviewed: No imaging is available for review. 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 Dressings were removed. The three incisional wounds were examined today. They are healing without complications. All incisions are secured with intact Dermabond and Steri-strips. The wounds are clean, no pathological discharge, no redness, no swelling, no local temperature, no tenderness on palpation.? The wounds were washed with ChloraPrep and bacitracin ointment with dry sterile dressings were applied. Patient may remove dressing in 24-48 hours and start showering. Activity restrictions and precauations reviewed with patient. Patient is wearing a fitted belt to wear his antenna. All questions and concerns have been answered and patient agreed with the plan. Follow up as needed. Coding Level of Care Code Est Pt Level 3 (45581) Diagnoses SI (sacroiliac) joint dysfunction M53.3 Cluneal neuropathy G58.8
[2023-11-28 11:27] VITALS: BP 137/63; PULSE 57; O2SAT 98; BMI 22.6
== END 2023-11-28 11:56 | disposition home or self-care (01) ==
PROVIDERS: PCP Student in an Organized Health Care Education/Training Program; Visit Provider Nurse Practitioner Family
DX: M53.3 Sacrococcygeal disorders, not elsewhere classified (principal); G58.8 Other specified mononeuropathies
CPT/HCPCS: 99213

== ENCOUNTER → 2023-11-28 11:11 | Outpatient (BNVA) | payer MEDICARE, MEDICAID, SELFPAY | PROVIDERS: PCP Student in an Organized Health Care Education/Training Program; Visit Provider Nurse Practitioner Family | DX: M53.3 Sacrococcygeal disorders, not elsewhere classified (principal); G58.8 Other specified mononeuropathies | CPT/HCPCS: 99212 ==

== ENCOUNTER 2024-08-17 12:27 | Outpatient (REF) | payer MEDICARE, MEDICAID, SELFPAY | END 2024-08-17 12:28 | disposition home or self-care (01) | LOC: HO.XRAY 12:27 | PROVIDERS: PCP Student in an Organized Health Care Education/Training Program; Visit Provider Nurse Practitioner Family | DX: G58.8 Other specified mononeuropathies (principal); Z96.89 Presence of other specified functional implants; Z96.82 Presence of neurostimulator; M53.3 Sacrococcygeal disorders, not elsewhere classified | CPT/HCPCS: 72100; 72202; 99212 ==

== ENCOUNTER 2024-08-17 13:31 | Outpatient (AMB) | payer MEDICARE, MEDICAID, SELFPAY ==
--- NOTE | 2024-08-17 13:35 | A.OFFVIS_ITS ---
Vital Signs 3 08/17/24 13:36 Height 5 ft 11 in Weight 160 lb BMI 22.3 BP 141/70 H Blood Pressure Location Lt brachial Position Sitting Pulse 62 Pulse Source Pulse Oximeter Pulse Oximetry (%) 98 Oxygen Delivery Method Room Air Intake Visit Reasons: DISCUSSION ABOUT POSSIBLE NERVE STIM REMOVAL Intake Note: Pain today 01/13 Manager Sustainability Required: No Accompanied by: Spouse Allergies bupropion [From Wellbutrin] Allergy (Severe, Verified 08/17/24 13:36) Anaphylaxis HPI Comments Details: Patient presents today for follow up and discussion for potential Curonix Stimulator removal. Patient was sent for lumbar and SIJ xrays prior to today's visit. Patient reports minimal pain relief since Curonix bilateral middle cluneal nerve stimulator implanted on 11/12/23. At that time he was reporting 70% pain relief with improvement in his ADLs, chronic pain levels and sleep. Patient has not contacted [employer] or our office since November for his concerns on decreased targeted pain coverage with the device. He requests today to remove the device without any further program adjustments or revision. Lead migration is noted on today's xray imaging, report is pending. Patient denies any recent trauma, injury or falls. He currently manages his pain with oxycodone 20 mg in the morning, 5 mg at 14:00 and 5 mg at bedtime and has discussion with his PCP about adding Belbuca film for a long-acting opioid and better analgesia. Pain is rated at 4/10 and increases with walking, changing his positions or sleep. Denies any recent cough, cold, infection, fever, any significant changes in her medical history, medications or recent hospitalizations. Past procedure: 11/12/23: Peripheral Nerve Stimulator Implant for Middle Cluneal Nerves, Bilateral: 70% relief so far with some post procedural pain and tenderness. 08/20/23: Percutaneous Trial of Stimulation of Medial Cluneal Nerves, Bilateral: 100% relief for the duration that the leads were in place. [facility] Medical History Hyperlipidemia Chronic pain syndrome Asthma Gastroesophageal reflux disease Anxiety Hypertension Osteoporosis Surgical History S/P placement of nerve stimulator Hx of tonsillectomy History of ear surgery History of back surgery Family History Maternal Grandfather Colon cancer Social History Alcohol intake: never Patient Tobacco Use Status: Current everyday Tobacco user Tobacco use type: Cigarette Second Hand Smoke Exposure: No Substance Use Type: Marijuana service: No Review of Systems Const All systems reviewed & are unremarkable except as noted in HPI and below Physical Exam Vital Signs: Last Vital Signs Pulse 62 08/17/24 13:36 BP 141/70 H 08/17/24 13:36 Pulse Ox 98 08/17/24 13:36 Oxygen Delivery Method Room Air 08/17/24 13:36 BMI result Body Mass Index 22.3 General: Appears afebrile. Alert and oriented. Mood and affect appropriate. Follows and participates in conversation appropriately. Respiratory effort is unlabored. Able to transition from sit to stand unassisted. Ambulates with bilaterally normal heel strike and toe off. All incisions are well healed. Curonix belt and stimulator external device are on. 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 Patient declined revision or program adjustments. Discussed the risks and benefits of the procedure with the patient in detail. All questions and concerns were answered. Follow up after PNS removal and sooner as needed. Orders: Orders 2 XR sacroiliac joint min 3V Today G58.8 - Other specified mononeuropathies, Z96.89 - Presence of other specified functional implants XR lumbar spine 2-3V Today G58.8 - Other specified mononeuropathies, Z96.89 - Presence of other specified functional implants Coding Level of Care Code Est Pt Level 4 (34715) Diagnoses Cluneal neuropathy G58.8 Sacral nerve stimulator present Z96.82 SI (sacroiliac) joint dysfunction M53.3
[2024-08-17 13:36] VITALS: BP 141/70; PULSE 62; O2SAT 98; BMI 22.3
== END 2024-08-17 14:03 | disposition home or self-care (01) ==
PROVIDERS: PCP Student in an Organized Health Care Education/Training Program; Visit Provider Nurse Practitioner Family
DX: G58.8 Other specified mononeuropathies (principal); Z96.82 Presence of neurostimulator; M53.3 Sacrococcygeal disorders, not elsewhere classified
CPT/HCPCS: 99214

== ENCOUNTER 2024-11-17 09:54 | Day surgery (SDC) | payer MEDICARE, MEDICAID, SELFPAY ==
[2024-11-15 08:29] VITALS: BMI 22.3
--- NOTE | 2024-11-16 10:50 | HO.ANESPROP2 ---
Documented by User: Elaine Pop NP 11/16/24 10:53 HPI - Anesthesia Eval Consult details Narrative: 64yo M for Bilateral Removal Cluneal Nerve Peripheral Nerve Stimulator s/p implant 11/2023 with [facility] Eval'd by [facility] cardiology 10/2023 after inpt for chest pain. All testing reassuring. PMFSH Active Problems Active Problems: All Active Problems Sacral nerve stimulator present (Acute) Status post insertion of sacral nerve stimulator (Acute) Hospital discharge follow-up (Acute) Low blood pressure reading (Acute) Osteopenia (Acute) Cluneal neuropathy (Acute) Opioid use (Acute) Depressive disorder (Acute) SI (sacroiliac) joint dysfunction (Acute) Hypertension (Acute) Past Medical History Medical History Hyperlipidemia Chronic pain syndrome Asthma Gastroesophageal reflux disease Anxiety Hypertension Osteoporosis Family History Family History Maternal Grandfather Colon cancer Family history of problems with anesthesia: No Surgical History Surgical History S/P placement of nerve stimulator Hx of tonsillectomy History of ear surgery History of back surgery Social History Social History Alcohol intake: never Patient Tobacco Use Status: Current everyday Tobacco user Tobacco use type: Cigarette Cigarettes Per Day: 2 Second Hand Smoke Exposure: No Use of substances other than those prescribed or required for medical reasons: Yes Substance Use Type: Marijuana Have you been hit, kicked, punched, or otherwise hurt by someone within the past year? If so, by whom?: No Advance Directives: No Advance Directives Information Provided: Yes Recently lost weight without trying: No service: No Meds Allergies Allergy/AdvReac Type Severity Reaction Status Date / Time bupropion [From Wellbutrin] Allergy Severe Anaphylaxis Verified 10/11/24 11:37 Home Medications ?Medication ?Instructions ?Recorded ?Confirmed ?Last Taken ?Type atenolol 25 mg tablet 25 mg PO DAILY@0900,1300 03/11/22 10/11/24 08/20/23 08:00 History clonazepam 0.5 mg tablet 0.5 mg PO BID PRN Anxiety 03/11/22 10/11/24 Unknown History famotidine 40 mg tablet 40 mg PO BEDTIME 03/11/22 10/11/24 03/29/22 History finasteride 5 mg tablet 5 mg PO DAILY 03/11/22 10/11/24 03/24/23 History gabapentin 600 mg tablet 900 mg PO BEDTIME 03/11/22 10/11/24 03/29/22 History mirtazapine 30 mg tablet 30 mg PO BEDTIME 03/11/22 10/11/24 03/29/22 History oxycodone myristate 9 mg capsule 9 mg PO BEDTIME 03/11/22 10/11/24 03/30/22 History sprinkle extended release 12 hr(DON'T CRUSH) (Xtampza ER) pravastatin 40 mg tablet 40 mg PO BEDTIME 03/11/22 10/11/24 03/29/22 History tamsulosin 0.4 mg capsule 0.4 mg PO DAILY 03/11/22 10/11/24 11/17/24 History aspirin 81 mg tablet,delayed 81 mg PO DAILY 03/31/22 10/11/24 03/24/23 History release sennosides 8.6 mg tablet (senna) 8.6 mg PO DAILY PRN Constipation 03/31/22 10/11/24 Unknown History fluticasone furoate 100 1 inh inhalation DAILY 03/24/23 10/11/24 03/24/23 History mcg-vilanterol 25 mcg/dose inhalation powder (Breo Ellipta) lamotrigine 250 mg tablet,extended 250 mg PO BEDTIME 03/24/23 10/11/24 Unknown History release 24 hr (Lamictal XR) multivitamin 1 tab PO DAILY 03/24/23 10/11/24 03/24/23 History pantoprazole 40 mg tablet,delayed 40 mg PO BID 10/28/23 10/11/24 Unknown History release prazosin 5 mg capsule mg PO 11/28/23 10/11/24 Unknown History gabapentin 300 mg capsule 300 mg PO TID 08/17/24 10/11/24 Unknown History quetiapine 100 mg tablet 100 mg PO BEDTIME 08/17/24 10/11/24 Unknown History Exam Height,Weight and Vital Signs: Height 5 ft 11 in Weight 72.575 kg Narrative Narrative: EKG 03/2023 Vent. Rate : 065 BPM Atrial Rate : 065 BPM P-R Int : 186 ms QRS Dur : 086 ms QT Int : 418 ms P-R-T Axes : 068 060 060 degrees QTc Int : 434 ms Normal sinus rhythm Normal ECG When compared with ECG of 31-MAR-2022 05:58, No significant change was found ECHO 03/2023 Vent. Rate : 065 BPM Atrial Rate : 065 BPM P-R Int : 186 ms QRS Dur : 086 ms QT Int : 418 ms P-R-T Axes : 068 060 060 degrees QTc Int : 434 ms Normal sinus rhythm Normal ECG When compared with ECG of 31-MAR-2022 05:58, No significant change was found NM marti perf SPECT rest & str 03/2023 Impression: 1. Myocardial perfusion imaging study shows likely normal myocardial perfusion 2. Gated LVEF is 68% 3. Transient ischemic dilatation not present EKG is nondiagnostic for ischemia Assessment and Plan Assessment Anesthesia Assessment: Chart Reviewed Final Anesthetic Review Family History of Problems with Anesthesia: No Documented by User: Zara Salomon MD 11/17/24 11:56 [facility] Past Medical History Medical History Hyperlipidemia Chronic pain syndrome Asthma Gastroesophageal reflux disease Anxiety Hypertension Osteoporosis Family History Family History Maternal Grandfather Colon cancer Surgical History Surgical History S/P placement of nerve stimulator Hx of tonsillectomy History of ear surgery History of back surgery History of Problems with Anesthesia: No Social History Social History Alcohol intake: never Patient Tobacco Use Status: Current everyday Tobacco user Tobacco use type: Cigarette Cigarettes Per Day: 2 Second Hand Smoke Exposure: No Use of substances other than those prescribed or required for medical reasons: Yes Substance Use Type: Marijuana Have you been hit, kicked, punched, or otherwise hurt by someone within the past year? If so, by whom?: No Advance Directives: No Advance Directives Information Provided: Yes Recently lost weight without trying: No service: No Meds Allergies Allergy/AdvReac Type Severity Reaction Status Date / Time bupropion [From Wellbutrin] Allergy Severe Anaphylaxis Verified 10/11/24 11:37 Home Medications ?Medication ?Instructions ?Recorded ?Confirmed ?Last Taken ?Type atenolol 25 mg tablet 25 mg PO DAILY@0900,1300 03/11/22 10/11/24 08/20/23 08:00 History clonazepam 0.5 mg tablet 0.5 mg PO BID PRN Anxiety 03/11/22 10/11/24 Unknown History famotidine 40 mg tablet 40 mg PO BEDTIME 03/11/22 10/11/24 03/29/22 History finasteride 5 mg tablet 5 mg PO DAILY 03/11/22 10/11/24 03/24/23 History gabapentin 600 mg tablet 900 mg PO BEDTIME 03/11/22 10/11/24 03/29/22 History mirtazapine 30 mg tablet 30 mg PO BEDTIME 03/11/22 10/11/24 03/29/22 History oxycodone myristate 9 mg capsule 9 mg PO BEDTIME 03/11/22 10/11/24 03/30/22 History sprinkle extended release 12 hr(DON'T CRUSH) (Xtampza ER) pravastatin 40 mg tablet 40 mg PO BEDTIME 03/11/22 10/11/24 03/29/22 History tamsulosin 0.4 mg capsule 0.4 mg PO DAILY 03/11/22 10/11/24 11/17/24 History aspirin 81 mg tablet,delayed 81 mg PO DAILY 03/31/22 10/11/24 03/24/23 History release sennosides 8.6 mg tablet (senna) 8.6 mg PO DAILY PRN Constipation 03/31/22 10/11/24 Unknown History fluticasone furoate 100 1 inh inhalation DAILY 03/24/23 10/11/24 03/24/23 History mcg-vilanterol 25 mcg/dose inhalation powder (Breo Ellipta) lamotrigine 250 mg tablet,extended 250 mg PO BEDTIME 03/24/23 10/11/24 Unknown History release 24 hr (Lamictal XR) multivitamin 1 tab PO DAILY 03/24/23 10/11/24 03/24/23 History pantoprazole 40 mg tablet,delayed 40 mg PO BID 10/28/23 10/11/24 Unknown History release prazosin 5 mg capsule mg PO 11/28/23 10/11/24 Unknown History gabapentin 300 mg capsule 300 mg PO TID 08/17/24 10/11/24 Unknown History quetiapine 100 mg tablet 100 mg PO BEDTIME 08/17/24 10/11/24 Unknown History Exam Narrative Narrative: lEKG 03/2023 Vent. Rate : 065 BPM Atrial Rate : 065 BPM P-R Int : 186 ms QRS Dur : 086 ms QT Int : 418 ms P-R-T Axes : 068 060 060 degrees QTc Int : 434 ms Normal sinus rhythm Normal ECG When compared with ECG of 31-MAR-2022 05:58, No significant change was found ECHO 03/2023 Vent. Rate : 065 BPM Atrial Rate : 065 BPM P-R Int : 186 ms QRS Dur : 086 ms QT Int : 418 ms P-R-T Axes : 068 060 060 degrees QTc Int : 434 ms Normal sinus rhythm Normal ECG When compared with ECG of 31-MAR-2022 05:58, No significant change was found NM marti perf SPECT rest & str 03/2023 Impression: 1. Myocardial perfusion imaging study shows likely normal myocardial perfusion 2. Gated LVEF is 68% 3. Transient ischemic dilatation not present EKG is nondiagnostic for ischemia Airway Mallampati Class: II (bottom permanent retainer) TM Dist: >3cm Neck ROM: Full Heart: rrr Lungs: cta Assessment and Plan Assessment Anesthesia Assessment: Anesthesia Plan Discussed Final Anesthetic Review History of Problems with Anesthesia: No NPO: Yes ASA Class: II Final Preanesthetic Review: No Changes in Pt Med Stat, Meds/Allgs Chart Reviewed and Consent Obtained/Reviewed Patient Risk: Intermediate Procedure Risk: Low Anesthetic Plan Anesthetic Plan: MAC: Disposition: Standard PACU
[2024-11-17] VITALS (8 sets, daily range): BP systolic 139–168; BP diastolic 73–98; PULSE 74–95; RESP 16–18; TEMP 36.1–36.7; O2SAT 96–98
--- NOTE | ~2024-11-17 | FL_ITS ---
EXAMINATION: FL GUIDANCE ONLY HISTORY: bilateral cluneal nerve peripheral stim removal COMPARISON: None available. TECHNIQUE: Fluoroscopy time: 13.6 seconds. Cumulative Dose: 2.290 mGy. DAP: 0.6130 mGym2 Images: 1. FINDINGS: A single fluoroscopic spot film of the lumbosacral junction demonstrates a single lead in place. FL/FL guidance in OR IMPRESSION: Fluoroscopy during procedure. Please see procedure report for additional information. Electronically signed by: Dieter Victoria MD 11/17/2024 01:16 PM RIOS
[2024-11-17] MEDS: Lactated Ringers 1,000 ML 100 ML IVCONT (10:28)
--- OUTSIDE RECORDS SUMMARY | 2024-11-17 11:38 | XMS_ITS | Data Portability ---
Author Organization [place] - [facility], Allergy Address [address] [place] [id number] Care Team Providers Care Cnc Maintenance Mechanic Name Role Phone ESTEFANÍAQUINCYPAOLO Referring Provider Assessment Encounter Date Assessment Date Assessment LastModified by Organization Details LastModified Time 04/23/2024 04/23/2024 63 year old male presents today for an ear cleaning. Impacted cerumen was debrided from the right ear today. He will follow up in four months. stefanie Not available 04/23/2024 13:28:40 08/12/2024 08/12/2024 Impacted cerumen was debrided bilaterally today. He will follow up with JULIOCESAR Costa in six months. [email or web address] Not available 08/12/2024 13:24:22 Plan of Treatment Reminders Order Date Submit Date Provider Last Modified By Organization Details Last Modified Time Details Appointments Establish ed 15 2024 01:30P M DILMA MORGAN PA-C Not available Not available Not available Lab None recorded. Referral None recorded. Procedures None recorded. Surgeries None recorded. Imaging None recorded. Medication Orders None recorded. Patient TargetsNo targets recorded. Patient InstructionsNo instructions recorded. Reason for Referral None Reported. Problems Name Problem SNOMED Code Status Onset Date Resolution Date Notes Provider Name and Address Organization Details Recorded Time Bilateral tinnitus 97573401608 02 Active 2016 Tinnitus, bilateral ; Note: Date Diagnosed : 06/25/2017 10:16 AM (H93.13) Not Available [facility] 03:12:09 Nasal congestio n [id number] Active 2021 Nasal congestio n; Note: Date Diagnosed : 12/03/2021 10:04 AM (R09.81) Not Available [facility] 4 03:12:10 Impacted cerumen in right ear 13421524637 53996 Active 2017 Impacted cerumen, right ear; Note: Date Diagnosed : 10/29/2017 3:35 PM (H61.21) Not Available [facility] 4 03:12:08 Impacted cerumen of bilateral ears [id number] 89756 Active 2016 Impacted cerumen, bilateral ; Note: Date Diagnosed : 06/25/2017 10:08 AM (H61.23) Not Available [facility] 4 03:12:09 Problem Notes None recorded. Medical Equipment None Reported. Medications Name Sig Start Date Stop Date Status Note LastModified by Organization Details LastModified Time gabapenti n 600 mg tablet 04/14 completed Medicati on ID: [id number] B rand Name: gabapent in Send Method: E-Prescr ibed Sub s Allowed: subs OK Medic ationGen ericName : gabapent in Not Available Not Available Not Available pravastat in 40 mg tablet TAKE 1 TABLET BY MOUTH EVERY DAY active Not Available Not Available No t Available fluconazo le 150 mg tablet active Medicati on ID: [id number] B rand Name: fluconaz ole Send Method: E-Prescr ibed Sub s Allowed: subs OK Medic ationGen ericName : fluconaz ole Not Available Not Available Not Available famotidin e 40 mg tablet TAKE 1 TABLET BY MOUTH EVERYDAY AT BEDTIME active Not Available Not Available No t Available alendrona te 70 mg tablet 04/14 completed Medicati on ID: [id number] B rand Name: alendron ate Send Method: E-Prescr ibed Sub s Allowed: subs OK Medic ationGen ericName : alendron ate Not Available Not Available Not Available clonazepa m 0.5 mg tablet TAKE 1 TABLET BY MOUTH ONCE A DAY NEEDED FOR ANXIETY ONLY active Not Available Not Available No t Available betametha sone, augmented 0.05 % topical cream 04/14 completed Medicati on ID: [id number] B rand Name: betameth asone, augmente d Send Method: E-Prescr ibed Sub s Allowed: subs OK Medic ationGen ericName : betameth asone, augmente d Not Available Not Available Not Available quetiapin e 200 mg tablet TAKE 1 TABLET BY MOUTH EVERYDAY AT BEDTIME active Not Available Not Available No t Available atenolol 25 mg tablet TAKE 1 TABLET BY MOUTH 2 TIMES A DAY NEEDED (ANXIETY , PALPITAT IONS.). active Not Available Not Available No t Available quetiapin e 100 mg tablet TAKE 1 TABLET BY MOUTH EVERYDAY AT BEDTIME active Not Available Not Available No t Available prazosin 5 mg capsule TAKE 2 CAPSULES (10 MG TOTAL) BY MOUTH NIGHTLY AT BEDTIME. active Not Available Not Available No t Available citalopra m 20 mg tablet 04/19 completed Medicati on ID: [id number] D uration Value: 30 Brand Name: citalopr am Send Method: E-Prescr ibed Sub s Allowed: subs OK Speci al Instruct ion: TAKE 1 TABLET BY MOUTH EVERY DAY Medi cationGe nericNam e: citalopr am Not Available Not Available Not Available tamsulosi n 0.4 mg capsule TAKE 1 CAPSULE BY MOUTH EVERY DAY active Not Available Not Available No t Available amlodipin e 5 mg-benaze pril 10 mg capsule TAKE 1 CAPSULE BY MOUTH EVERY DAY active Not Available Not Available No t Available pantopraz ole 40 mg tablet,de layed release TAKE 1 TABLET BY MOUTH TWICE DAILY (30-60 MIN BEFORE FOOD) active Not Available Not Available No t Available mirtazapi ne 30 mg tablet TAKE 1 TABLET BY MOUTH EVERY EVENING AT 7PM active Not Available Not Available No t Available gabapenti n 300 mg capsule TAKE 3 CAPSULE BY MOUTH EVERY NIGHT AT BEDTIME active Not Available Not Available No t Available omeprazol e 20 mg capsule,d elayed release active Medicati on ID: [id number] B rand Name: omeprazo le Send Method: E-Prescr ibed Sub s Allowed: subs OK Medic ationGen ericName : omeprazo le Not Available Not Available Not Available mirtazapi ne 15 mg tablet TAKE 1 TABLET BY MOUTH EVERY DAY IN THE EVENING active Not Available Not Available No t Available fluticaso ne propionat e 50 mcg/actua tion nasal spray,eris pension SPRAY 1 SPRAY INTO EACH NOSTRIL EVERY DAY active Not Available Not Available No t Available finasteri de 5 mg tablet TAKE 1 TABLET (5 MG TOTAL) BY MOUTH DAILY. active Not Available Not Available No t Available amlodipin e 10 mg-benaze pril 20 mg capsule 04/14 completed Medicati on ID: [id number] B rand Name: amlodipi ne-benaz epril Se nd Method: E-Prescr ibed Sub s Allowed: subs OK Medic ationGen ericName : amlodipi ne-benaz epril Not Available Not Available Not Available mirtazapi ne 7.5 mg tablet TAKE 1 TABLET BY MOUTH EVERY DAY IN THE EVENING active Not Available Not Available No t Available varenicli ne tartrate 1 mg tablet TAKE 1 TABLET BY MOUTH TWICE A DAY active Not Available Not Available No t Available oxycodone 10 mg tablet TAKE 2 TABLETS BY MOUTH DAILY AT 6 AM, 1/2 TABLET AT 2 PM, & 1 TABLET AT 8 PM active Not Available Not Available No t Available lamotrigi ne ER 200 mg tablet,ex tended release 24 hr active Medicati on ID: [id number] B rand Name: lamotrig ine Send Method: E-Prescr ibed Sub s Allowed: subs OK Medic ationGen ericName : lamotrig ine Not Available Not Available Not Available lamotrigi ne ER 100 mg tablet,ex tended release 24 hr 04/14 completed Medicati on ID: [id number] B rand Name: lamotrig ine Send Method: E-Prescr ibed Sub s Allowed: subs OK Speci al Instruct ion: TAKE 1 TABLET BY MOUTH EVERY MORNING WITH MEALS (DOSE INCREASE D) Medic ationGen ericName : lamotrig ine Not Available Not Available Not Available lamotrigi ne ER 50 mg tablet,ex tended release 24 hr 04/14 completed Medicati on ID: [id number] B rand Name: lamotrig ine Send Method: E-Prescr ibed Sub s Allowed: subs OK Medic ationGen ericName : lamotrig ine Not Available Not Available Not Available lamotrigi ne ER 250 mg tablet,ex tended release 24 hr TAKE 1 TABLET BY MOUTH EVERY MORNING WITH A MEAL active Not Available Not Available No t Available Breo Ellipta 100 mcg-25 mcg/dose powder for inhalatio n active Medicati on ID: [id number] B rand Name: Breo Ellipta Send Method: E-Prescr ibed Sub s Allowed: subs OK Medic ationGen ericName : Radha Ellipta Not Available Not Available Not Available ProAir RespiClic k 90 mcg/actua tion breath activated 04/19 completed Medicati on ID: [id number] D uration Value: 30 Brand Name: ProAir RespiCli ck Send Method: E-Prescr ibed Sub s Allowed: subs OK Speci al Instruct ion: INHALE 2 PUFFS BY MOUTH 4 TIMES A DAY NEEDED M edicatio nGeneric Name: ProAir RespiCli ck Not Available Not Available Not Available Xtampza ER 9 mg capsule sprinkle TAKE 1 CAPSULE BY MOUTH DAILY NEEDED *E* active Not Available Not Available No t Available Vitals Date Recorded Body height Body mass index (BMI) Body weight Provider Name and Address Organization Details Last Updated DateTime 04/23/2024 180.34 cm 22.3 kg/m2 37496.78 g Adriana David [place] - [facility] 04/23/2024 13:13:26 Date Recorded Body height Body mass index (BMI) Body weight Provider Name and Address Organization Details Last Updated DateTime 08/12/2024 180.34 cm 22.3 kg/m2 59180.78 g Adriana David [place] - [facility] 08/12/2024 13:13:12 Social History None recorded. Functional Status None recorded. Mental Status None recorded. Family History Nothing Reported. Medical History No medical history recorded. Past Encounters Encounter ID Performer Location Encounter Start Date Encounter Closed Date Diagnosis/Indication Diagnosis SNOMED-CT Code Diagnosis ICD10 Code Diagnosis Note [id number] LUIS AARON PA-C [facility] on [address] [place] [id number] 04/23/2024 13:07:03 04/23/2024 13:20:48 Impacted cerumen in right ear [id number] H61.21 [id number] STEPHANIE MEDINA MD [facility] on [address] [place] [id number] 08/12/2024 13:11:25 08/12/2024 13:20:52 Impacted cerumen of bilateral ears [id number] 754247 H61.23 Health Concerns Section Related Observation LastModified by Organization Detai ls LastModified Time None Recorded Concern Status LastModified by Organization Details LastModified Time None Recorded Advance Directives Directive None Recorded Payers Encounter Date Sequence Insurance Name Policy Number Policy Powell Covered Member ID Powell Member ID Guarantor Name 04/23/2024 2 [place] [facility] Harrison Ko Quentin [id number] Harirson Ko Quentin 04/23/2024 1 [place] B[place] [facility] Harrison Rangelnshaw [id number] Harrison Ko Quentin 08/12/2024 2 [place] [facility] Harrison Ko [place] [id number] Harrison Ko Quentin 08/12/2024 1 [place] [facility] Harrison Ko Quentin [id number] Harrison Ko Quentin Notes Date Note Type Note Provider Name and Address Organization Details Recorded Time 04/23/2024 text/html 63 year old male presents today for cerumen removal.No specific concerns today. LUIS AARON PA-C [address] [place] [address], [phone], [place] - [facility] 04/23/2024 13:29:07 08/12/2024 text/html 64 year old male presents today for cerumen removal.No concerns today. STEPHANIE MEDINA MD [address] [place] [address], [phone], [place] - [facility] 08/16/2024 06:51:55
[2024-11-17 11:46] LABS: MRSA Nasal PCR NEGATIVE (Negative); SA Nasal PCR POSITIVE (Negative)
--- NOTE | 2024-11-17 12:05 | MHC.SHP ---
Pre-Procedural Eval Section A - 24 Hr Update-Section A only Date of Service: 11/17/24 The patient is an INPATIENT: No Changes since office visit: Yes Patient answered all questions The patient has been examined within 24 hours of the surgical procedure. The History & Physical has been completed within 30 days and I have reviewed it.: No Section B - Complete if H&P > 30 days Chief Complaint: mononeuropathies,presence of neurostimulator Relevant Family History (Specify if Yes): No Relevant Social History: None Present Medications: see Short Stay Collaborative assessment Medical History: No relevant PMH History of Previous Operations: No relevant previous surgery Allergies: Allergies Allergy/AdvReac Type Severity Reaction Status Date / Time bupropion [From Wellbutrin] Allergy Severe Anaphylaxis Verified 10/11/24 11:37 Review of Systems Sugical H&P ROS: Negative: Constitution, Cardiovascular and Respiratory Exam Surgical H&P Exam: Normal: HEENT, Normal: Heart and Normal: Lungs Plan Diagnosis/Plan: Unchanged I have reviewed the history and physical and performed a pertinent physical examination on my patient. No changes have occurred unless specified. Proceed with explant. Time Spent With Patient Time: Total time managing care of this patient today ____ minutes.
[2024-11-17] MEDS: ceFAZolin Sodium/Dextrose,Iso 2 GM/50 ML PIGGYBACK IV (12:15)
[2024-11-17] MEDS: fentaNYL citrate/PF 100 MCG/2 ML VIAL 50 MCG IVPUSH ×2 (13:45→13:55)
[2024-11-17] MEDS: oxyCODONE HCl Immed Release 5 MG TABLET PO (14:03)
--- NOTE | 2024-11-17 15:13 | P.BOP_ITS ---
Brief Operative Note Date of Service: 11/17/24 Pre-op diagnosis: Cluneal neuropathy Post-op diagnosis: same Procedure: Explant, cluneal nerve stimulator, bilateral Surgeon: Zbigniew Lord MD Anesthesia: MAC Was an Traffic Engineering Technician used for this Procedure?: No Estimated blood loss (mL): 15 Pathology: none sent Condition: stable Disposition: PACU
--- NOTE | 2024-11-17 15:16 | W.PM.OPN ---
Operative Note Operative Note Date of Service: 11/17/24 Narrative: Pre-procedure diagnosis: Cluneal neuropathy Postprocedure diagnosis: Same Procedure: Explantation of bilateral cluneal nerves stimulation leads After proper identification, the patient was brought to the operating room. For prone positioning, care was taken to protect and pad all pressure points. Cefazolin 2gm IV was given as preoperative antibiotic prophylaxis. The back was prepped and draped in the usual sterile fashion using Chloroprep. The existing incisions were infiltrated with a mixture of bupivacaine 0.25% and lidocaine 1% mixed with epinephrine 1:834995. The skin was incised with a 15 blade and a combination of electrocautery and blunt dissection was used until the leads were exposed. Blunt dissection was then used to free the lead from the soft tissue. A blade was used to release the sutures. The sutures were removed. Once the lead were free, they were gently tucked on until they were completely removed from the posterior sacral space with tips intact. There was no resistance to the removal of the DRG leads. Attention was then diverted to the coil pocket site. The scar overlying the pocket was then infiltrated with the local anesthetic mixture as noted above. A 15 blade was then used to incise the skin. Combination of electrocautery and blunt dissection was then used to expose the coil and electrocautery was used to free it from the soft tissue. The portion of the leads proximal to the coil was then cut, the leads were pulled out and completely removed from the operative field. Both incisions were irrigated with normal saline solution. All preexisting suture remnants were identified and removed. After irrigation, the wounds were closed with 2-0 and 3-0 Vicryl. The skin was closed with Exofin and Steri-Strips and dressed with gauze and Tegaderm. The patient was then woken up, flipped supine and brought to the PACU in stable condition.
== END 2024-11-17 14:47 | disposition home or self-care (01) ==
PROVIDERS: Registered Nurse Emergency; PCP Student in an Organized Health Care Education/Training Program; Visit Provider Internal Medicine
PROC: (CPT 64585; principal; 2024-11-17 11:30)
DX: G58.8 Other specified mononeuropathies (principal); Z96.82 Presence of neurostimulator; G89.4 Chronic pain syndrome; M53.3 Sacrococcygeal disorders, not elsewhere classified; M81.0 Age-related osteoporosis without current pathological fracture; I10 Essential (primary) hypertension; E78.5 Hyperlipidemia, unspecified; J45.909 Unspecified asthma, uncomplicated; F41.9 Anxiety disorder, unspecified; Z79.891 Long term (current) use of opiate analgesic; Z79.51 Long term (current) use of inhaled steroids; Z79.899 Other long term (current) drug therapy; Z88.8 Allergy status to other drugs, medicaments and biological substances; Z98.890 Other specified postprocedural states; F17.210 Nicotine dependence, cigarettes, uncomplicated
CPT/HCPCS: 64585; 87640; 87641; J0690; J2003; J2250; J2704; J3010

== ENCOUNTER → 2024-11-17 09:54 | Outpatient (BNV) | payer MEDICARE, MEDICAID, SELFPAY | PROVIDERS: PCP Student in an Organized Health Care Education/Training Program; Visit Provider Internal Medicine | DX: G58.8 Other specified mononeuropathies (principal); Z96.82 Presence of neurostimulator | CPT/HCPCS: 64585 ==

== ENCOUNTER 2024-11-26 11:06 | Outpatient (AMB) | payer MEDICARE, MEDICAID, SELFPAY ==
--- NOTE | 2024-11-26 11:10 | MHC.OFFVIS ---
Vital Signs 11/26/24 11:12 Height 5 ft 11 in Weight 160 lb BMI 22.3 BP 137/82 Blood Pressure Location Rt brachial Position Sitting Respiration 16 Pulse 60 Pulse Source Pulse Oximeter Pulse Oximetry (%) 91 L Oxygen Delivery Method Room Air Intake Visit Reasons: S/p Removal of B/l Cluneal PNS 11/17/24 Breakdown Person Required: No Allergies No Known Allergies Allergy (Verified 11/26/24 11:13) Medication List - Last Reconciled 11/26/24 by Ivette Bull LPN amlodipine-benazepril 5-10 mg 1 cap PO DAILY aspirin 81 mg PO DAILY atenolol 25 mg PO DAILY@0900,1300 clonazepam 0.5 mg PO BID PRN famotidine 40 mg PO BEDTIME finasteride 5 mg PO DAILY fluticasone furoate-vilanterol 100-25 mcg/dose (Breo Ellipta) 1 inh inhalation DAILY gabapentin 900 mg PO BEDTIME gabapentin 300 mg PO TID lamotrigine ER (Lamictal XR) 250 mg PO BEDTIME mirtazapine 30 mg PO BEDTIME multivitamin 1 tab PO DAILY oxycodone 10 mg PO Q8H PRN pantoprazole 40 mg PO BID pravastatin 40 mg PO BEDTIME quetiapine 100 mg PO BEDTIME sennosides (senna) 8.6 mg PO DAILY PRN tamsulosin 0.4 mg PO DAILY HPI HPI S/p Removal of B/l Cluneal PNS 11/17/24: Details: History of Present Illness The patient is a 64-year-old male presenting with the purpose of follow-up after removal of his cluneal nerve stimulator. The patient initially had the stimulator implanted to enhance mobility, specifically to help with movements such as bending and squatting, and to reduce dependency on oxycodone. However, the device proved ineffective in achieving these goals. The recent removal procedure confirmed that the leads were well positioned without any migration or damage. Removal was successfully performed, although challenging due to strong adhesions. The patient is keen to explore medication adjustments, specifically a transition to Belbuca, as advised by a primary care physician. Pain Description - Did not improve mobility such as bending, squatting, or rising from the floor - Did not assist in reducing oxycodone usage - New medication, Belbuca, being considered as a replacement for oxycodone Physical Exam - Incisions- Clean, dry, and intact Pain Management - Affect: The patient's mood appears stable, though there is disappointment regarding the outcome of the nerve stimulator - Analgesia: Currently on oxycodone, with the goal of transitioning to Belbuca - Adverse Effects: No side effects discussed from current analgesics - Activities of Daily Living: Limited capability to bend, squat, or rise unaided - Aberrant Drug Related Behaviors: None reported or suspected during the visit [facility] Medical History Hyperlipidemia Chronic pain syndrome Asthma Gastroesophageal reflux disease Anxiety Hypertension Osteoporosis Surgical History S/P placement of nerve stimulator Hx of tonsillectomy History of ear surgery History of back surgery Family History Maternal Grandfather Colon cancer Social History Alcohol intake: never Patient Tobacco Use Status: Current everyday Tobacco user Tobacco use type: Cigarette Cigarettes Per Day: 2 Second Hand Smoke Exposure: No Substance Use Type: Marijuana service: No Physical Exam Vital Signs: Last Vital Signs Pulse 60 11/26/24 11:12 Resp 16 11/26/24 11:12 BP 137/82 11/26/24 11:12 Pulse Ox 91 L 11/26/24 11:12 Oxygen Delivery Method Room Air 11/26/24 11:12 BMI result Body Mass Index 22.3 Assessment & Plan Assessment & Plan (1) Cluneal neuropathy: Code(s): G58.8 - Other specified mononeuropathies Category: Medical Plan Plan Patient was informed and verbally consented to the use of an ambient scribe for clinic note documentation during this visit. 1. Status Post Removal Of Glenohumeral Nerve Stimulator The nerve stimulator has been successfully removed without complications, and the incisions look well-healed. Showering is permitted, and any further concerns can be addressed via portal account photos. The patient is encouraged to send photos for review unless issues occur. Discussion Notes During our discussion, I reviewed the successful extraction of the glenohumeral nerve stimulator with the patient, Harrison. The removal was difficult due to adhesion but was completed uneventfully. We revisited Harrison's mobility goals and the device's ineffectiveness in achieving them. Considering a current treatment plan, I noted his PCP's suggestion of Belbuca as an alternative to oxycodone. The patient was advised to share incision photos and to follow up next week unless instructed otherwise. Patient Instructions - You may begin showering. - Send incision photos via the portal account instead of coming in, unless directed otherwise. - Follow up as scheduled next week, or sooner if any issues arise with the incision area. Coding Level of Care Code Est Pt Level 3 (60035) Diagnoses Cluneal neuropathy G58.8
[2024-11-26 11:12] VITALS: BP 137/82; PULSE 60; RESP 16; O2SAT 91; BMI 22.3
--- OUTSIDE RECORDS SUMMARY | 2024-11-26 12:12 | XMS_ITS | Clinical Summary ---
Author Organization [facility] Address [address] [facility] [address] Care Team Providers Care Conservation Coordinator Name Role Phone Constance Russell MD Primary Care Provider [phone] Allergies Active Allergy Reactions Criticality Noted Date Comments Chocolate Flavor 06/23/2019 Odonnell 06/23/2019 Shellfish Containing Products High 06/23/2019 Congestion, throat closes Dextrose 06/23/2019 Tomato 06/23/2019 Medications Medication Sig Dispensed Refills Start Date End Date Status PROAIR HFA 90 mcg/actuation HFA Aerosol Inhaler INHALE 1 TO 2 PUFFS BY MOUTH EVERY 6 HOURS NEEDED FOR WHEEZE 1 06/05/2019 Active amlodipine-benazepril (LOTREL) 10-20 mg Capsule 06/13/2019 Active clotrimazole (MYCELEX) 10 mg Lilly TAKE 1 LILLY (10 MG TOTAL) BY MOUTH 5 (FIVE) TIMES A DAY. 3 05/07/2019 Active finasteride (PROSCAR) 5 mg Tablet TAKE 1 TABLET BY MOUTH EVERY DAY 5 06/01/2019 Active gabapentin (NEURONTIN) 300 mg Capsule TAKE 6 CAPSULES DAILY DIRECTED IN DIVIDED DOSES 1 06/03/2019 Active mirtazapine (REMERON) 30 mg Tablet TAKE 1 TABLET BY MOUTH EVERYDAY AT BEDTIME 1 06/09/2019 Active multivitamin (THERAGRAN) Tablet Take 1 tablet by mouth Daily. Active oxyCODONE (ROXICODONE) 10 mg Tablet TAKE 1 TABLET BY MOUTH EVERY 6 HOURS NEEDED *E* 0 06/01/2019 Active pravastatin (PRAVACHOL) 40 mg Tablet TAKE 1 TABLET BY MOUTH EVERY DAY 5 06/01/2019 Active QUEtiapine (SEROQUEL) 100 mg Tablet TAKE 1 & 1/2 TABLETS BY MOUTH EVERY DAY AT BEDTIME 1 06/11/2019 Active senna (SENOKOT) 8.6 mg Tablet Take 1-2 tablets by mouth Twice daily. 03/17/2018 Active tamsulosin (FLOMAX) 0.4 mg Capsule TAKE 1 CAPSULE BY MOUTH EVERY DAY 5 06/13/2019 Active aspirin 81 mg Tablet, Delayed Release (E.C.) Take 81 mg by mouth daily. Active Active Problems Problem Noted Date Diagnosed Date Depression 06/17/2019 Overview (06/17/2019): Followed at [facility]. 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 featur es 03/03/2019 Chronic low back pain 02/17/2019 Myalgia 02/17/2019 Postoperative hematoma of mu sculoskeletal structure following musculoskeletal procedure 02/17/2019 Status post spinal surgery 02/17/2019 Nontraumatic psoas hematoma 12/14/2018 Retroperitoneal hematoma 12/14/2018 Sacroiliac joint dysfunction of right side 11/24 Anxiety 11/19/2018 Hyperlipidemia 11/19/2018 Posttraumatic stress disorder 11/19/2018 Allergic rhinitis 08/13/2017 Backache 08/13/2017 BPH with obstruction/lower urinary tract symptom s 08/13/2017 Hypertension 08/13/2017 Social History Tobacco Use Types Packs/Day Years Used Date Smoking Tobacco: Never Assessed Sex and Gender Information Value Date Recorded Sex Assigned at Male 05/25/2019 12:36 PM EDT Gender Identity Male 05/25/2019 12:36 PM EDT Sexual Orientation Not on file Last Filed Vital Signs Vital Sign Reading Time Taken Comments Blood Pressure 172/98 06/23/2019 12:52 PM EDT Pulse 82 06/23/2019 12:52 PM EDT Temperature - - Respiratory Rate - - Oxygen Saturation - - Inhaled Oxygen Concentration - - Weight 73.9 kg (163 lb) 06/23/2019 12:52 PM EDT Height 180.3 cm (5' 11 ) 06/23/2019 12:52 PM EDT Body Mass Index 22.73 06/23/2019 12:52 PM EDT Plan of Treatment Health Maintenance Due Date Last Done Comments CT Colonography 1961 Colonoscopy 1961 Colorectal Cancer Screening 1961 FIT DNA 1961 FIT 1961 Sigmoidoscopy (10 year) with FIT yearly 1961 Sigmoidoscopy 1961 HIV screen 1979 Hepatitis C Screening 1979 Tetanus/Diphtheria/Pertussis Vaccines (1 - Tdap) 05/20 Pneumoccocal Vaccine: 50+ (1 of 1 - PCV) 2011 Zoster vaccine (1 of 2) 2011 Advance Directive 2016 Covid-19 Vaccine (1 - 2023-25 season) 2024 Influenza (Flu) vaccine (1 o f 1 - Influenza standard series) 06/06/2024 Care Teams Conservation Coordinator Relationship Specialty Start Date End Date Constance Russell MD [address] [facility] [address] [place] [address] PCP - General General Internal Medicine 06/02/19
== END 2024-11-26 11:30 | disposition home or self-care (01) ==
PROVIDERS: PCP Student in an Organized Health Care Education/Training Program; Visit Provider Internal Medicine
DX: G58.8 Other specified mononeuropathies (principal)
CPT/HCPCS: 99024

== ENCOUNTER → 2024-11-26 11:06 | Outpatient (BNVA) | payer MEDICARE, MEDICAID, SELFPAY | PROVIDERS: PCP Student in an Organized Health Care Education/Training Program; Visit Provider Internal Medicine | DX: G58.8 Other specified mononeuropathies (principal) | CPT/HCPCS: 99212 ==

== ENCOUNTER 2025-03-15 21:31 | Emergency (ER) | payer MEDICARE, MEDICAID, SELFPAY ==
--- NOTE | 2025-03-15 | ECG_ITS ---
Test Reason : CHEST PAIN Blood Pressure : */* mmHG Vent. Rate : 65 BPM Atrial Rate : 65 BPM P-R Int : 182 ms QRS Dur : 84 ms QT Int : 400 ms P-R-T Axes : 73 58 60 degrees QTcB Int : 416 ms Normal sinus rhythm Minimal voltage criteria for LVH, may be normal variant ( Sokolow-Worley ) Borderline ECG When compared with ECG of 24-Mar-2023 17:22, No significant change was found Referred By: Generic ED Physician Electronically Signed By: ROBERTH JUAREZ MD
--- NOTE | ~2025-03-15 | XR_ITS ---
CLINICAL HISTORY: SOB Chest X-ray, 2 Views COMPARISON: CR/SR - XR CHEST 2 VIEWS - 03/24/23 17:37 EDT FINDINGS: No consolidation. No pleural effusion. No pneumothorax. No cardiomegaly. No acute fracture. IMPRESSION: No acute findings. This document has been electronically signed by: Clyde Cuellar MD on 03/16/2025 05:01:16
[2025-03-15 22:08] LABS: MANUAL DIFF FLAG NO
[2025-03-15 22:11] VITALS: BP 157/90; PULSE 63; RESP 16; TEMP 36.4; O2SAT 96; BMI 22.3
[2025-03-15 22:11] LABS: Basophils Absolute Auto 0.1 X10*3/uL (0.0-0.2); Basophils Percent Auto 0.6 % (0-2); Eosinophils Absolute Auto 0.1 X10*3/uL (0.0-0.4); Eosinophils Percent Auto 0.9 % (0-4); Hematocrit 44.8 % (42.0-52.0); Hemoglobin 15.5 g/dl (14.0-18.0); Imm Gran Abs Auto 0.02 X10*3/uL (0.00-0.03); Imm Gran Pct Auto 0.2 % (0.0-0.4); Lymphocytes Absolute Auto 3.6 X10*3/uL (1.2-4.9); Lymphocytes Percent Auto 44.7 % (20-40); Mean Corpuscular HGB Conc 34.6 g/dl (31.0-36.0); Mean Corpuscular Hemoglobin 29.6 pg (27.0-33.0); Mean Corpuscular Volume 85.7 fL (80.0-98.0); Mean Platelet Volume 9.4 fL (9.4-12.4); Monocytes Absolute Auto 0.8 X10*3/uL (0.1-1.2); Monocytes Percent Auto 9.6 % (2-11); Neutrophils Absolute Auto 3.5 x10*3/uL (2.0-8.3); Platelet Count 311 X10*3/uL (160-400); Red Blood Count 5.23 X10*6/uL (4.60-5.80); Red Cell Distribution Width 13.3 % (11.0-16.0)
[2025-03-15 22:24] LABS: Alanine Aminotransferase 24 U/L (0-40); Albumin Level 5.1 g/dL (3.5-5.0); Alkaline Phosphatase 78 U/L (39-117); Anion Gap 11 (12-20); Aspartate Amino Transferase 19 U/L (5-37); Bilirubin Total 0.4 mg/dL (0.0-1.0); Blood Urea Nitrogen 10 mg/dL (9-16); Calcium 9.8 mg/dL (8.4-10.2); Carbon Dioxide 29 mmol/L (22-29); Chloride 104 mmol/L (96-108); Creatinine Clr Calc Pharmacy 69.2; Estimated Glomerular Filt Rate > 60; Glucose Random 117 mg/dL (60-115); Lipase 29 U/L (8-78); Magnesium 2.3 mg/dL (1.6-2.6); Potassium 3.4 mmol/L (3.3-5.1); Sodium 141 mmol/L (135-145); Total Protein 8.1 g/dL (6.5-8.0)
[2025-03-15 22:30] LABS: Troponin-I High Sensitivity 5.4 ng/L (<3.5-35.0)
--- OUTSIDE RECORDS SUMMARY | 2025-03-16 02:47 | XMS_ITS | Data Portability ---
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 [email or web address] Not available 08/12/2024 13:24:22 02/25/2025 02/25/2025 Impacted cerumen debrided bilaterally using alligator forceps. TMs intact and middle ear spaces appear well aerated. Follow up in six months for ear cleaning. lamine Not available 02/26/2025 08:58:21 Plan of Treatment Reminders Order Date Submit Date Provider Last Modified By Organization Details Last Modified Time Details Appointments Establish ed 30 2024 11:00A M MARIANN Glass MD Not available Not available Not available Lab None recorded. Referral None recorded. Procedures None recorded. Surgeries None recorded. Imaging None recorded. Medication Orders None recorded. Patient TargetsNo targets recorded. Patient InstructionsNo instructions recorded. Reason for Referral None Reported. Problems Name Problem SNOMED Code Status Onset Date Resolution Date Notes Provider Name and Address Organization Details Recorded Time Bilateral tinnitus [id number] 02 Active 2016 Tinnitus, bilateral ; Note: Date Diagnosed : 06/25/2017 10:16 AM (H93.13) Not Available [facility] 4 03:12:09 Nasal congestio n [id number] Active 2021 Nasal congestio n; Note: Date Diagnosed : 12/03/2021 10:04 AM (R09.81) Not Available [facility] 4 03:12:10 Impacted cerumen in right ear [id number] 99682 Active 2017 Impacted cerumen, right ear; Note: Date Diagnosed : 10/29/2017 3:35 PM (H61.21) Not Available [facility] 4 03:12:08 Impacted cerumen of bilateral ears [id number] 73795 Active 2016 Impacted cerumen, bilateral ; Note: Date Diagnosed : 06/25/2017 10:08 AM (H61.23) Not Available [facility] 4 03:12:09 Problem Notes None recorded. Procedures Surgical History Date Name Laterality Status Provider Name and Address Organization Details Recorded Time Cerumen removal without microscope bilat completed DILMA MORGAN PA-C [address] [place] [address], [phone], [facility] - [facility] 02/26/2025 08:57:52 Imaging Results None recorded. Procedure Notes None recorded. Medical Equipment None Reported. Medications Name Sig Start Date Stop Date Status Note LastModified by Organization Details LastModified Time gabapenti n 600 mg tablet 04/14 completed Medicati on ID: [id number] B rand Name: gabapent in Send Method: E-Prescr ibed Sub s Allowed: subs OK Medic ationGen ericName : gabapent in Not Available Not Available Not Available pravastat in 40 mg tablet TAKE 1 TABLET BY MOUTH EVERY DAY active Not Available Not Available No t Available fluconazo le 150 mg tablet active Medicati on ID: [id number] B rand Name: fluconaz ole Send Method: E-Prescr ibed Sub s Allowed: subs OK Medic ationGen ericName : fluconaz ole Not Available Not Available Not Available famotidin e 40 mg tablet TAKE 1 TABLET BY MOUTH EVERYDAY AT BEDTIME active Not Available Not Available No t Available alendrona te 70 mg tablet 04/14 completed Medicati on ID: [id number] B rand Name: alendron ate Send Method: E-Prescr ibed Sub s Allowed: subs OK Medic ationGen ericName : alendron ate Not Available Not Available Not Available clonazepa m 0.5 mg tablet TAKE 1 TABLET BY MOUTH EVERY DAY NEEDED active Not Available Not Available No t Available betametha sone, augmented 0.05 % topical cream 04/14 completed Medicati on ID: [id number] B rand Name: betameth asone, augmente d Send Method: E-Prescr ibed Sub s Allowed: subs OK Medic ationGen ericName : betameth asone, augmente d Not Available Not Available Not Available gabapenti n 400 mg capsule TAKE 1 CAPSULE BY MOUTH EVERY NIGHT AT BEDTIME. active Not Available Not Available No t Available quetiapin e 200 mg tablet TAKE 1 TABLET BY MOUTH EVERYDAY AT BEDTIME active Not Available Not Available No t Available atenolol 25 mg tablet TAKE 1 TABLET BY MOUTH TWICE A DAY NEEDED FOR ANXIETY AND HEART PALPITAT IONS active Not Available Not Available No t Available quetiapin e 100 mg tablet TAKE 1 TABLET BY MOUTH EVERYDAY AT BEDTIME active Not Available Not Available No t Available prazosin 5 mg capsule TAKE 2 CAPSULES (10 MG TOTAL) BY MOUTH NIGHTLY AT BEDTIME. active Not Available Not Available No t Available citalopra m 20 mg tablet 04/19 completed Medicati on ID: [id number] D uration Value: 30 Brand Name: citalopr [...] Available gabapenti n 300 mg capsule TAKE 2 CAPSULE BY MOUTH EVERY NIGHT AT BEDTIME active Not Available Not Available No t Available omeprazol e 20 mg capsule,d elayed release active Medicati on ID: [id number] B rand Name: omeprazo le Send Method: [...] mg capsule 04/14 completed Medicati on ID: [id number] B rand Name: amlodipi ne-benaz epril Se [...] mg tablet TAKE 2 TABLETS BY MOUTH 3 TIMES A DAY active Not Available Not Available No t Available lamotrigi ne ER 200 mg tablet,ex tended release 24 hr active Medicati on ID: [id number] B rand Name: lamotrig ine Send Method: E-Prescr ibed Sub s Allowed: subs OK Medic ationGen ericName : lamotrig ine Not Available Not Available Not Available lamotrigi ne ER 100 mg tablet,ex tended release 24 hr 04/14 completed Medicati on ID: [id number] B rand Name: lamotrig ine Send Method: E-Prescr ibed Sub s Allowed: subs OK Speci al Instruct ion: TAKE 1 TABLET BY MOUTH EVERY MORNING WITH MEALS (DOSE INCREASE D) Medic ationGen ericName : lamotrig ine Not Available Not Available Not Available lamotrigi ne ER 50 mg tablet,ex tended release 24 hr 04/14 completed Medicati on ID: [id number] B rand Name: lamotrig ine Send Method: E-Prescr ibed Sub s Allowed: subs OK Medic ationGen ericName : lamotrig ine Not Available Not Available Not Available lamotrigi ne ER 250 mg tablet,ex tended release 24 hr TAKE 1 TABLET BY MOUTH EVERY MORNING WITH A MEAL active Not Available Not Available No t Available Breo Ellipta 100 mcg-25 mcg/dose powder for inhalatio n TAKE 1 PUFF BY MOUTH EVERY DAY active Not Available Not Available No t Available ProAir RespiClic k 90 mcg/actua tion breath activated 04/19 completed Medicati on ID: [id number] D uration Value: 30 Brand Name: ProAir RespiCli ck Send Method: E-Prescr ibed Sub s Allowed: subs OK Speci al Instruct ion: INHALE 2 PUFFS BY MOUTH 4 TIMES A DAY NEEDED M edicatio nGeneric Name: ProAir RespiCli ck Not Available Not Available Not Available Belbuca [address] FILM (75 MCG TOTAL) INSIDE CHEEK 2 (TWO) TIMES A DAY. active Not Available Not Available No t Available Xtampza ER 9 mg capsule sprinkle TAKE 1 CAPSULE BY MOUTH DAILY NEEDED *E* active Not Available Not Available No t Available Vitals Date Recorded Body height Body mass index (BMI) Body weight Provider Name and Address Organization Details Last Updated DateTime 02/25/2025 180.34 cm 22.3 kg/m2 94609.78 g Eileen Stinson [place] [facility] 02/25/2025 14:40:24 Date Recorded Body height Body mass index (BMI) Body weight Provider Name and Address Organization Details Last Updated DateTime 04/23/2024 180.34 cm 22.3 kg/m2 81839.78 g Adriana David [place] [facility] 04/23/2024 13:13:26 Date Recorded Body height Body mass index (BMI) Body weight Provider Name and Address Organization Details Last Updated DateTime 08/12/2024 180.34 cm 22.3 kg/m2 57011.78 g Adriana David [place] [facility] 08/12/2024 13:13:12 Social History None recorded. Functional Status None recorded. Mental Status None recorded. Family History Nothing Reported. Medical History No medical history recorded. Past Encounters Encounter ID Performer Location Encounter Start Date Encounter Closed Date Diagnosis/Indication Diagnosis SNOMED-CT Code Diagnosis ICD10 Code Diagnosis Note [id number] ALEXANDRIA AARON PA-C [facility] [address] [place] [id number] 04/23/2024 13:07:03 04/23/2024 13:20:48 Impacted cerumen in right ear [id number] 429405 H61.21 [id number] ALEXANDRIA AARON PA-C [facility] [address] [place] [id number] 08/12/2024 13:11:25 08/12/2024 13:20:52 Impacted cerumen of bilateral ears [id number] 559661 H61.23 [id number] DILMA MORGAN PA-C [facility] [address] [place] [id number] 2 02/25/2025 14:38:11 02/25/2025 15:05:49 Impacted cerumen of bilateral ears [id number] 788193 H61.23 Health Concerns Section Related Observation LastModified by Organization Detai ls LastModified Time None Recorded Concern Status LastModified by Organization Details LastModified Time None Recorded Advance Directives Directive None Recorded Payers Insurance Date Sequence Insurance Name Policy Number Policy Powell Covered Member ID Powlel Member ID Guarantor Name 02/04/2025 2 [place] [facility] Harrison Saavedra [id number] Harrison Saavedra 02/04/2025 1 [place] [employer] Harrison Saavedra [id number] Harrison Saavedra Notes Date Note Type Note Provider Name and Address Organization Details Recorded Time 04/23/2024 text/html 63 year old male presents today for cerumen removal.No specific concerns today. Alexandria pickett [place] - [facility] 04/23/2024 13:29:07 08/12/2024 text/html 64 year old male presents today for cerumen removal.No concerns today. STEPHANIE MEDINA MD [address] [facility],[address], [address], [facility] 08/16/2024 06:51:55 02/25/2025 text/html 64 year old male presents for routine six month ear cleaning. No acute concerns. MARIANN HURST MD 100 [facility],[place] [address], [place], [address], [facility] 02/28/2025 18:34:58
--- NOTE | 2025-03-16 03:35 | ED_ITS ---
HPI - General Adult General Chief complaint: Dizziness Stated complaint: Chest pain /dizziness Time Seen by Provider: 03/16/25 03:35 History of Present Illness ED Provider: Bj BARAKAT narrative: The patient is a 64-year-old male who says that he has been having problems with dizziness and lightheadedness for about a week. He has also had problems with shortness of breath. Today he had some chest discomfort and was feeling faint at home and more short of breath. He also had some tingling in the left side of his body. He says that he wants had something similar in went to [facility] where he was found to have low potassium. He is a smoker. He has smoked most of his life. At this point he is only smoking 2-3 cigarettes per day but he used to smoke half a pack a day. He is requesting an inhaler. He says that he had episodes of sweats today. Related Data Home Medications ?Medication ?Instructions ?Recorded ?Confirmed atenolol 25 mg tablet 25 mg PO DAILY@0900,1300 03/11/22 11/26/24 clonazepam 0.5 mg tablet 0.5 mg PO BID PRN Anxiety 03/11/22 11/26/24 famotidine 40 mg tablet 40 mg PO BEDTIME 03/11/22 11/26/24 finasteride 5 mg tablet 5 mg PO DAILY 03/11/22 11/26/24 gabapentin 600 mg tablet 900 mg PO BEDTIME 03/11/22 11/26/24 mirtazapine 30 mg tablet 30 mg PO BEDTIME 03/11/22 11/26/24 pravastatin 40 mg tablet 40 mg PO BEDTIME 03/11/22 11/26/24 tamsulosin 0.4 mg capsule 0.4 mg PO DAILY 03/11/22 11/26/24 aspirin 81 mg tablet,delayed 81 mg PO DAILY 03/31/22 11/26/24 release sennosides 8.6 mg tablet (senna) 8.6 mg PO DAILY PRN Constipation 03/31/22 11/26/24 fluticasone furoate 100 1 inh inhalation DAILY 03/24/23 11/26/24 mcg-vilanterol 25 mcg/dose inhalation powder (Breo Ellipta) lamotrigine 250 mg tablet,extended 250 mg PO BEDTIME 03/24/23 11/26/24 release 24 hr (Lamictal XR) multivitamin 1 tab PO DAILY 03/24/23 11/26/24 pantoprazole 40 mg tablet,delayed 40 mg PO BID 10/28/23 11/26/24 release gabapentin 300 mg capsule 300 mg PO TID 08/17/24 11/26/24 quetiapine 100 mg tablet 100 mg PO BEDTIME 08/17/24 11/26/24 Previous Rx's ?Medication ?Instructions ?Recorded oxycodone 10 mg tablet 10 mg PO Q8H PRN surgical pain #15 11/12/23 tabs amlodipine 5 mg-benazepril 10 mg 1 cap PO DAILY #90 caps 09/24/24 capsule budesonide-formoterol HFA 160 2 puff inhalation BID #10.2 grams 03/16/25 mcg-4.5 mcg/actuation aerosol inhaler Allergies Allergy/AdvReac Type Severity Reaction Status Date / Time No Known Allergies Allergy Verified 03/15/25 22:13 Review of Systems 2 Review of Systems: Yes all other systems are reviewed and are negative [facility] Past Medical History Medical History Hyperlipidemia Chronic pain syndrome Asthma Gastroesophageal reflux disease Anxiety Hypertension Osteoporosis Surgical History S/P placement of nerve stimulator Hx of tonsillectomy History of ear surgery History of back surgery Family History Family History Maternal Grandfather Colon cancer Social History Social History Alcohol intake: never Patient Tobacco Use Status: Current everyday Tobacco user Tobacco use type: Cigarette Cigarettes Per Day: 2 Second Hand Smoke Exposure: No Substance Use Type: Marijuana Advance Directives: No Advance Directives Information Provided: Yes Do you have a plan to hurt others: No Plan service: No Physical Exam ED Vital Signs: Vital Signs - 24 hr 03/15/25 22:11 03/16/25 03:46 03/16/25 04:56 Temperature 97.6 F 97.7 F 98.1 F Pulse Rate 63 65 70 Respiratory Rate 16 24 H 20 Blood Pressure 157/90 H 146/76 H 159/88 H Pulse Oximetry 96 98 99 Oxygen Delivery Method Room Air Room Air Room Air 03/16/25 05:06 Temperature 98.1 F Pulse Rate 70 Respiratory Rate 20 Blood Pressure 159/88 H Pulse Oximetry 99 Oxygen Delivery Method Room Air BMI result Body Mass Index 22.3 Const Other: The patient is a slim 64-year-old male who was awake and alert and who does not seem in acute distress. HENMT Other: Face is symmetrical, mucous membranes moist. Eyes General: appearance normal, both eyes and all related structures Neck Neck: Yes normal visual inspection, Yes full ROM and Yes no JVD Resp Other: Lungs are fairly clear bilaterally. No definite wheezes. Cardio Rate: regular rate Rhythm: regular rhythm Heart sounds: S1 normal heart sound present and S2 normal heart sound present GI Other: Abdomen is flat, soft, and nontender. Skin Other: Skin is dry and unremarkable Neuro Other: the patient is a 64-year-old male who was awake and alert with a normal mental status. Cranial nerves are grossly intact. He moves his extremities symmetrically. He has 2 walking sticks that he uses when walking. He seems steady on his feet with these devices which he normally uses. Extrem Other: No calf swelling or tenderness Medical Decision Making Medical Decision Making MDM Narrative: the patient is a 64-year-old male who presents with variety of symptoms including lightheadedness, nausea, dizziness, and also bilateral arm and leg tingling and shortness of breath and sometimes feeling pain. Also somewhat short of breath. He does not appear acutely ill in any way. His physical exam is unremarkable. His EKGs unremarkable. His troponins are flat. His D-dimer is normal. He has no focal neurological deficit. My suspicion for any acutely dangerous process is very low. He has a history of smoking. Has a no inhalers. He thinks he might benefit from an inhaler. I do not think this is unreasonable as his air entry is somewhat coarse on exam. I will prescribe a budesonide formoterol. He has a follow up appointment with his regular doctor in 2 days. Lab Data 03/15/25 22:02 03/15/25 22:02 Labs: Lab Results 03/15/25 03/16/25 03/16/25 Range/Units 22:02 03:31 04:10 WBC 8.0 (4.8-10.8) X10*3/uL RBC 5.23 (4.60-5.80) X10*6/uL Hgb 15.5 (14.0-18.0) g/dl Hct 44.8 (42.0-52.0) % MCV 85.7 (80.0-98.0) fL MCH 29.6 (27.0-33.0) pg MCHC 34.6 (31.0-36.0) g/dl RDW 13.3 (11.0-16.0) % Plt Count 311 (160-400) X10*3/uL MPV 9.4 (9.4-12.4) fL Immature Gran % (Auto) 0.2 (0.0-0.4) % Neut % (Auto) 44.0 L (45-73) % Lymph % (Auto) 44.7 H (20-40) % [place] % (Auto) 9.6 (2-11) % Eos % (Auto) 0.9 (0-4) % Baso % (Auto) 0.6 (0-2) % Lymph # (Auto) 3.6 (1.2-4.9) X10*3/uL [place] # (Auto) 0.8 (0.1-1.2) X10*3/uL Eos # (Auto) 0.1 (0.0-0.4) X10*3/uL Baso # (Auto) 0.1 (0.0-0.2) X10*3/uL Abs Immat Gran (auto) 0.02 (0.00-0.03) X10*3/uL Absolute Neuts (auto) 3.5 (2.0-8.3) x10*3/uL Absolute Nucleated RBC 0.000 (0.0-0.012) X10*3/uL Nucleated RBC % (auto) 0.0 (0.0-0.2) /100WBC D-Dimer High Sensitivty < 150 NG/ML Sodium 141 (135-145) mmol/L Potassium 3.4 (3.3-5.1) mmol/L Chloride 104 (96-108) mmol/L Carbon Dioxide 29 (22-29) mmol/L Anion Gap 11 L (12-20) BUN 10 (9-16) mg/dL Creatinine 1.12 (0.5-1.4) mg/dL Estim Creat Clear Calc 69.2 Estimated GFR > 60 Random Glucose 117 H (60-115) mg/dL Calcium 9.8 (8.4-10.2) mg/dL Magnesium 2.3 (1.6-2.6) mg/dL Total Bilirubin 0.4 (0.0-1.0) mg/dL AST 19 (5-37) U/L ALT 24 (0-40) U/L Alkaline Phosphatase 78 (39-117) U/L Troponin I High Sens 5.4 D 5.6 (<3.5-35.0) ng/L Total Protein 8.1 H (6.5-8.0) g/dL Albumin 5.1 H (3.5-5.0) g/dL Lipase 29 (8-78) U/L Independent Interpretation I performed an independent interpretation of an: EKG Interpretation: EKG at 21:43 shows normal sinus rhythm at 65 beats per minute. It is an unremarkable EKG. Similar to previous. No ischemic changes. Discharge Plan Discharge Clinical Impression: Shortness of breath Patient Disposition: Home, Self-Care Additional Instructions: Your testing in the emergency room today is very reassuring. There was no sign of a heart attack or a blood clot in your lungs. I have sent a prescription for an inhaler that you may use to see if this helps with your breathing. The prescription has been written so that you should take 2 puffs 2 times a day. If necessary you can increase this and take 2 puffs every 4 hours as needed. Please do your best to try to eliminate smoking altogether. Please keep your appointment with your regular doctor on and discuss these symptoms further. Return to the emergency room if significantly worse. Prescriptions: New budesonide-formoterol 160-4.5 mcg/actuation HFA aerosol inhaler 2 puff inhalation BID Qty: 10.2 0RF No Action amlodipine-benazepril 5-10 mg capsule 1 cap PO DAILY Qty: 90 3RF sennosides [senna] 8.6 mg Tablet 8.6 mg PO DAILY PRN (Reason: Constipation) aspirin 81 mg Tablet,Delayed Release (Dr/Ec) 81 mg PO DAILY oxycodone 10 mg tablet 10 mg PO Q8H PRN (Reason: surgical pain) Qty: 15 0RF Rx Instructions: Partial Fill upon patient request. multivitamin Tablet 1 tab PO DAILY lamotrigine [Lamictal XR] 250 mg Tablet Extended Release 24hr 250 mg PO BEDTIME fluticasone furoate-vilanterol [Breo Ellipta] 100-25 mcg/dose Blister With Device 1 inh INHALATION DAILY clonazepam 0.5 mg tablet 0.5 mg PO BID PRN (Reason: Anxiety) pravastatin 40 mg tablet 40 mg PO BEDTIME gabapentin 600 mg tablet 900 mg PO BEDTIME mirtazapine 30 mg tablet 30 mg PO BEDTIME finasteride 5 mg tablet 5 mg PO DAILY atenolol 25 mg tablet 25 mg PO DAILY@0900,1300 tamsulosin 0.4 mg capsule 0.4 mg PO DAILY famotidine 40 mg tablet 40 mg PO BEDTIME pantoprazole 40 mg tablet,delayed release (DR/EC) 40 mg PO BID gabapentin 300 mg capsule 300 mg PO TID quetiapine 100 mg tablet 100 mg PO BEDTIME Referrals: Melissa Castelan MD [Primary Care Provider] - Interventions: ED Discharge Assessment Last Done: 03/16/25 05:06 Discharge Date/Time: 03/16/25 05:07 Print Language: Serbian
[2025-03-16 03:46] VITALS: BP 146/76; PULSE 65; RESP 24; TEMP 36.5; O2SAT 98
[2025-03-16 03:55] LABS: Troponin-I High Sensitivity 5.6 ng/L (<3.5-35.0)
[2025-03-16 04:25] LABS: D Dimer High Sensitivity < 150 NG/ML
[2025-03-16 04:56] VITALS: BP 159/88; PULSE 70; RESP 20; TEMP 36.7; O2SAT 99
[2025-03-16 05:06] VITALS: BP 159/88; PULSE 70; RESP 20; TEMP 36.7; O2SAT 99
== END 2025-03-16 05:07 | disposition home or self-care (01) ==
PROVIDERS: Physician Assistant Medical; Emergency Provider Emergency Medicine; PCP Student in an Organized Health Care Education/Training Program
DX: R06.02 Shortness of breath (principal); R42 Dizziness and giddiness; F17.210 Nicotine dependence, cigarettes, uncomplicated; I10 Essential (primary) hypertension; E78.5 Hyperlipidemia, unspecified; J45.909 Unspecified asthma, uncomplicated; Z79.82 Long term (current) use of aspirin; Z79.899 Other long term (current) drug therapy; Z79.02 Long term (current) use of antithrombotics/antiplatelets
CPT/HCPCS: 36415; 71046; 80053; 83690; 83735; 84484; 85025; 85379; 93005; 99283; 99284

== ENCOUNTER → 2025-03-15 21:43 | Outpatient (BNV) | payer MEDICARE, MEDICAID, SELFPAY | PROVIDERS: Emergency Provider Emergency Medicine; PCP Student in an Organized Health Care Education/Training Program; Visit Provider Internal Medicine Cardiovascular Disease | DX: R07.9 Chest pain, unspecified (principal) | CPT/HCPCS: 93010 ==

== ENCOUNTER → 2025-03-16 03:18 | Outpatient (BNV) | payer MEDICARE, MEDICAID, SELFPAY | PROVIDERS: Emergency Provider Emergency Medicine; PCP Student in an Organized Health Care Education/Training Program; Visit Provider Radiology Diagnostic Radiology | DX: R06.02 Shortness of breath (principal) | CPT/HCPCS: 71046 ==